=== PATIENT | female | born 1995 | race Caucasian/White ===

== ENCOUNTER → 2017-10-23 09:01 | Outpatient (REF) | payer BC, SELFPAY ==
[2017-10-23 14:00] LABS: HCG,Quantitative 5 mIU/mL
== END ==
LOC: LAB 09:01
PROVIDERS: Visit Provider Physician Assistant
DX: Z32.00 Encounter for pregnancy test, result unknown (principal)
CPT/HCPCS: 84702

== ENCOUNTER → 2017-11-26 09:50 | Outpatient (REF) | payer BC, SELFPAY ==
[2017-11-26 15:18] LABS: HCG,Quantitative 1201 mIU/mL
== END ==
LOC: LAB 09:50
PROVIDERS: Visit Provider Physician Assistant
DX: Z32.01 Encounter for pregnancy test, result positive (principal)
CPT/HCPCS: 84702

== ENCOUNTER → 2017-12-05 14:09 | Outpatient (CLI) | payer BC, SELFPAY ==
[2017-12-05 17:20] LABS: HCG,Quantitative 14697 mIU/mL
== END ==
PROVIDERS: PCP Physician Assistant; Visit Provider Emergency Medicine
DX: O20.9 Hemorrhage in early pregnancy, unspecified (principal)
CPT/HCPCS: 36415; 84702

== ENCOUNTER → 2017-12-07 16:09 | Outpatient (CLI) | payer BC, SELFPAY ==
[2017-12-07 16:41] LABS: Basophils % 0.2 % (0.1-2.0); Eosinophils % 0.4 % (0.1-12.0); Hematocrit 40.1 % (37.0-47.0); Hemoglobin 13.5 g/dL (12.2-16.2); Lymphocytes # 2.6 K/mm3 (0.7-4.5); Mean Corpuscular HGB Conc 33.8 g/dL (31.8-35.4); Mean Corpuscular Hemoglobin 30.3 pg (27.0-31.2); Mean Corpuscular Volume 89.7 fl (81-99); Mean Platelet Volume 8.4 fl (7.4-10.4); Monocytes # 0.3 K/mm3 (0.1-1.0); Monocytes % 3.1 % (1.7-9.3); Neutrophils # 6.5 K/mm3 (1.8-7.8); Neutrophils % 68.3 % (37.0-80.0); Platelet Count 189 K/mm3 (142-424); Red Blood Count 4.47 M/mm3 (4.20-5.40); Red Cell Distribution Width 13.5 % (11.5-17.5); White Blood Count 9.5 K/mm3 (4.8-10.8)
[2017-12-09 14:53] LABS: HIV Screen 4th Generation wRfx Non Reactive (Non Reactive); Hepatitis B Surface Antigen Negative (Negative); Hepatitis C Antibody <0.1 s/co ratio (0.0-0.9); Rapid Plasma Reagin Ab Titer Non Reactive (NonRea<1:1); Rubella Antibodies, IgG 0.93 index (Immune >0.99)
== END ==
PROVIDERS: Family Provider Physician Assistant; PCP Physician Assistant; Visit Provider Obstetrics & Gynecology
DX: Z34.90 Encounter for supervision of normal pregnancy, unspecified, unspecified trimester (principal)
CPT/HCPCS: 36415; 84702; 85025; 86592; 86703; 86762; 86850; 87340; 87380; 87536; G0432

== ENCOUNTER → 2017-12-10 15:03 | Outpatient (CLI) | payer BC, SELFPAY ==
--- NOTE | 2017-12-10 15:04 | US_ITS ---
US OB transvaginal HISTORY: ITS.REASON: US T/V- Checking for viable fetus ORDERING PHYSICIAN: Lena Eller MD PATIENT AGE: 22 years COMPARISON: None FINDINGS: An intrauterine gestational sac is present with a pole with a crown-rump length of 0.41cm correlating to gestational age of 6w1d. heart tones are present with an FHR of 141 bpm's. Yolk sac is noted. Adnexa: 1 cm right corpus luteum cyst. IMPRESSION: Live intrauterine gestation at 6 weeks 1 day as described above. Estimated due date by ultrasound is 08/04/2018
== END ==
PROVIDERS: Family Provider Physician Assistant; PCP Physician Assistant; Visit Provider Obstetrics & Gynecology
DX: O36.80X0 Pregnancy with inconclusive fetal viability, not applicable or unspecified (principal)
CPT/HCPCS: 76817

== ENCOUNTER → 2018-03-17 12:15 | Outpatient (CLI) | payer BC, MEDICAID, SELFPAY ==
--- NOTE | 2018-03-17 12:17 | US_ITS ---
US OB /maternal detail: INDICATION: ITS.REASON: US OB Complete ORDERING PHYSICIAN: Lena Eller MD PATIENT AGE: 22 years TECHNIQUE: ultrasound transabdominal scanning. COMPARISON: No previous relevant studies. FINDINGS: Single viable intrauterine gestation. Cephalic position. Placenta: Posterior High placenta grade 1. There is average amount fluid. The cervix appears satisfactory. Closed and measuring 4 cm in length. Complete survey performed and was unremarkable on the submitted images as in PACS. No discrete anomalies identified on survey imaging by technologist. Active fetus. Three-vessel cord with satisfactory umbilical cord insertion. 4- chamber heart noted. Survey of brain & ventricles unremarkable. Face and neck survey unremarkable. Diaphragm and chest views unremarkable. Abdomen: Both kidneys noted and unremarkable. Stomach noted and satisfactory. Spine: Survey of the spine satisfactory with no anomalies identified nor imaged. Both arms and legs noted. Amniotic Fluid: Adequate. Maternal adnexa: No significant findings. Measurements: Average ultrasound age 20w1d. Gestational Age 20w0d. Estimated due date by ultrasound age 0408/03/2018. Estimated weight 324 grams. BPD = 20w4d OFD = 20w4d HC = 19w6d AC = 20w0d FL = 20w0d Growth Percentile= 43% Heart Rate = 153 Cerebellum = 20w0d Humerus = 20w0d HC/AC is 1.17 (1.09-1.26). CI is 79% (70-86%). FL/BPD is 67%. FL/AC is 22%. IMPRESSION: There is a single live fetus present in cephalic presentation. Average ultrasound age is 20 weeks 1 day with an estimated due date by ultrasound 08/03/2018. All parameters correlate with no obvious anomalies. Please see above for detail
== END ==
PROVIDERS: PCP Physician Assistant; Visit Provider Obstetrics & Gynecology
DX: Z36.0 Encounter for antenatal screening for chromosomal anomalies (principal)
CPT/HCPCS: 76811

== ENCOUNTER → 2018-04-23 12:51 | Outpatient (CLI) | payer MEDICAID, SELFPAY ==
--- NOTE | 2018-04-23 12:53 | US_ITS ---
US OB follow up: Indication: Evaluate growth ITS.REASON: US OB- weight DEBORAH Check ORDERING PHYSICIAN: Lena Eller MD PATIENT AGE: 22 years FINDINGS: There is a single live fetus present which is in cephalic presentation. The placenta is posterior and fundal and grade 1. The following parameters are obtained: Average ultrasound age is 26w2d. Estimated due date by ultrasound is 07/28/2018. Estimated weight is 888 grams. This is 74 percentile BPD: 26w4d OFD: 26w3d HC: 26w1d AC: 26w2d FL: 25w5d heart rate: 147 bpm. HC/AC: 1.10 (1.04-1.22) Cephalic index: 77% (70-86%) FL/BPD: 72% (71-87%) FL/AC: 22% (20-24%) Amniotic fluid index: 20 cm No obvious anomalies evident. Placenta: Posterior High GR 1 Cervix: Appears closed and measures 4.5 cm IMPRESSION: Single live fetus with average ultrasound age of 26 weeks and 2 days with an estimated weight of 888 g which is 74 percentile. All parameters correlate. Please see above for detail
== END ==
PROVIDERS: PCP Physician Assistant; Visit Provider Obstetrics & Gynecology
DX: O28.9 Unspecified abnormal findings on antenatal screening of mother (principal); O36.62X0 Maternal care for excessive fetal growth, second trimester, not applicable or unspecified
CPT/HCPCS: 76816

== ENCOUNTER → 2018-05-17 08:04 | Outpatient (CLI) | payer MEDICAID, SELFPAY ==
[2018-05-17 08:29] LABS: Glucose,Fasting 84 mg/dL (60-105)
[2018-05-17 10:02] LABS: Glucose 1 Hour 139 mg/dL (74-106)
== END ==
PROVIDERS: Visit Provider Obstetrics & Gynecology
DX: Z34.90 Encounter for supervision of normal pregnancy, unspecified, unspecified trimester (principal)
CPT/HCPCS: 36415; 82951

== ENCOUNTER → 2018-07-01 17:33 | Outpatient (CLI) | payer SELFPAY | PROVIDERS: Visit Provider Obstetrics & Gynecology | DX: Z34.90 Encounter for supervision of normal pregnancy, unspecified, unspecified trimester (principal) | CPT/HCPCS: 86403 ==

== ENCOUNTER 2018-07-08 16:43 | Outpatient (CLI) | payer SELFPAY ==
[2018-07-08 17:21] VITALS: BP 128/81; PULSE 113; RESP 16; TEMP 36.9; O2SAT 98; BMI 40.4
[2018-07-08 17:27] LABS: Microscopic, Urine URINE MICROSCOPIC (MICROSCOPIC)
[2018-07-08 17:40] LABS: Appearance,Urine SL CLOUDY (Clear); Bilirubin,Urine Negative (Negative); Blood, Urine 1+ (Negative); Color,Urine YELLOW (Yellow); Glucose,Urine (UA) Negative (Negative); Ketones,Urine Negative (Negative); Leukocyte Esterase,Urine TRACE (Negative); Nitrate,Urine Negative (Negative); PH,Urine 6.5 (5.0-8.5); Protein,Urine Negative (Negative); Specific Gravity, Urine 1.015 (1.005-1.030); Urobilinogen,Urine 0.2 EU/dl (0.2)
[2018-07-08 18:10] LABS: Bacteria,Urine 1+ /lpf; RBC,Urine Occasional #/hpf (0-3)
== END 2018-07-08 18:45 | disposition home or self-care (01) ==
LOC: OBOUT 16:46 → OB 16:47
PROVIDERS: PCP Obstetrics & Gynecology; Visit Provider Obstetrics & Gynecology
DX: O60.03 Preterm labor without delivery, third trimester (principal); Z3A.36 36 weeks gestation of pregnancy
CPT/HCPCS: 59025; 81001

== ENCOUNTER → 2018-07-12 10:19 | Outpatient (CLI) | payer MEDICAID, SELFPAY ==
--- NOTE | 2018-07-12 10:20 | US_ITS ---
US OB follow up: INDICATION: Large for gestational age ITS.REASON: US OB- Growth DEBORAH- Large for Dates ORDERING PHYSICIAN: Lena Eller MD PATIENT AGE: 23 years TECHNIQUE: ultrasound transabdominal scanning. /mw COMPARISON: Previous ultrasound April 23, 2018 at which time average ultrasound age was 26 weeks 2 days. Also complete anatomic survey March 2018/cc FINDINGS: Single viable intrauterine gestation. Cephalic position.. Placenta : Placenta appears to be fundal and extending more anterior today..: (Previous April ultrasound showed a posterior -fundal placenta) This is a very Mature grade 2 appearing placenta, with fairly extensive basal plate calcifications. Also note calcifications extending along 2 or 3 visualized clefts extending upward from the basal plate.. Submitted Images do not demonstrate any prominent chorionic plate clefts . There are a few tiny fluid-filled hypoechoic areas within the placenta largest measuring up to 7 mm nonspecific at this point.. However I see no large hypoechoic areas of cleft/septations from the chorionic plate to support grade 3. Thus would characterize this is a mature grade 2,. The cervix difficult to visualize due to the low-lying head, but appears to measure approximately 2.8 cm length. Th Limited overview images of fetus performed at this follow-up visit.,. Images submitted images as in PACS reflect the mild polyhydramnios . No discrete associated anomalies noted with the real-time scanning today by technologist. Active fetus.Three-vessel cord with satisfactory umbilical cord insertion. Limited Survey low-lying head reveals unremarkable brain & ventricles. In posterior fossa unremarkable Today's a few limited views of abdomen reveal no prominent findings, but would noted slight hypoechoic structure along the flank which most likely reflect fluid-filled bowel loops.. Chest images grossly satisfactory.. Limited views of heart unremarkable.... Note it appears to be a male fetus ------ Amniotic Fluid: A slight Increased amount... Suggest Developing polyhydramnios DEBORAH = 21.55 with all pockets in all quadrants measuring measuring over 5.2 cm Measurements: Average ultrasound age 37 week 5 day. Gestational Age 36 week 5 day... Based on LMP 10/28/2017. Estimated due date by ultrasound age 407/28/2018 Estimated weight 3427 grams. +/- 500 g BPD = 9 cm = 36 week 4 day OFD = 11.82 cm HC = 33 cm = 37 week 4 day AC = 35.3 cm = 39 week 2 day FL = 7.25 cm = 37 week 1 Heart Rate = 138 bpm DEBORAH = 21.55 suggesting developing polyhydramnios HC/AC = 0.93.(1.09-1.26.) CI = 76%.(70-86%). FL/BPD is 81% (71-87%). FL/AC is 21% %. (22-24%) ==== IMPRESSION: 37 week 5 day average ultrasound age ... Cephalic position Very Mature grade 2 placenta --with extensive basal plate calcification now evident.-Significant placental maturation since April ultrasound. On today's limited images this appears to be a fundal placenta which wraps anterior,. (previous April study suggested more posterior placenta) DEBORAH 21.55 .. suggest developing Polyhydramnios No other discrete associated findings on today's very limited overview images of the fetus. I would note likely few fluid-filled bowel loops account for slight hypoechoic structures along flank on coronal views of the abdomen. Also note the HC/AC ratio & FL/AC ratio i very slightly low but this may reflect a generous ACmeasurement on today's scan
== END ==
PROVIDERS: PCP Physician Assistant; Visit Provider Obstetrics & Gynecology
DX: O36.60X0 Maternal care for excessive fetal growth, unspecified trimester, not applicable or unspecified (principal)
CPT/HCPCS: 76816

== ENCOUNTER 2018-07-14 09:15 | Outpatient (CLI) | payer MEDICAID, SELFPAY ==
[2018-07-14 09:34] VITALS: BMI 40.8
[2018-07-14 09:37] VITALS: BP 121/80; PULSE 112; RESP 18; TEMP 36.8; O2SAT 98; BMI 40.8
[2018-07-14 09:37] LABS: Microscopic, Urine URINE MICROSCOPIC (MICROSCOPIC)
[2018-07-14 09:40] LABS: Appearance,Urine SL CLOUDY (Clear); Bilirubin,Urine Negative (Negative); Blood, Urine Negative (Negative); Color,Urine YELLOW (Yellow); Glucose,Urine (UA) Negative (Negative); Ketones,Urine TRACE (Negative); Leukocyte Esterase,Urine 1+ (Negative); Nitrate,Urine Negative (Negative); Protein,Urine Negative (Negative); Specific Gravity, Urine 1.025 (1.005-1.030); Urobilinogen,Urine 0.2 EU/dl (0.2)
[2018-07-14 09:41] VITALS: BP 121/80; PULSE 112; RESP 18; TEMP 36.8; O2SAT 98
[2018-07-14 09:50] LABS: Bacteria,Urine 1+ /lpf; Mucus,Urine Trace /lpf
== END 2018-07-14 11:55 | disposition home or self-care (01) ==
LOC: OBOUT 09:18 → OB 09:19
PROVIDERS: PCP Physician Assistant; Visit Provider Obstetrics & Gynecology
DX: O47.03 False labor before 37 completed weeks of gestation, third trimester (principal); Z3A.37 37 weeks gestation of pregnancy
CPT/HCPCS: 59025; 81001; 87086; 96360

== ENCOUNTER 2018-07-15 01:49 | Inpatient (IN) ==
[2018-07-15 03:08] LABS: Basophils % 0.1 % (0.1-2.0); Eosinophils # 0.1 K/mm3 (0.0-0.4); Eosinophils % 1.3 % (0.1-12.0); Hematocrit 32.8 % (37.0-47.0); Hemoglobin 10.8 g/dL (12.2-16.2); Lymphocytes # 2.1 K/mm3 (0.7-4.5); Lymphocytes % 19.1 % (10-50); Mean Corpuscular HGB Conc 32.8 g/dL (31.8-35.4); Mean Corpuscular Volume 82.3 fl (81-99); Monocytes # 0.5 K/mm3 (0.1-1.0); Monocytes % 4.2 % (1.7-9.3); Neutrophils # 8.1 K/mm3 (1.8-7.8); Neutrophils % 75.3 % (37.0-80.0); Platelet Count 134 K/mm3 (142-424); Red Blood Count 3.98 M/mm3 (4.20-5.40); Red Cell Distribution Width 14.8 % (11.5-17.5); White Blood Count 10.8 K/mm3 (4.8-10.8)
--- NOTE | 2018-07-15 09:03 | Progress Note ---
Internal Medicine - PN: Subj *Date: 07/15/18 *Time: 09:00 Interval history: She is a 23-year-old 2 para 1 who is 37+ weeks gestational age. She is having contractions yesterday and was admitted overnight. She was 3 cm on arrival and has now continued to contract overnight and is 5 cm dilated. Exam Vital signs and Labs for Last 24 Hours: Temp Pulse Resp BP Pulse Ox 98.7 F 96 H 18 117/78 99 07/15/18 04:40 07/15/18 04:40 07/15/18 04:40 07/15/18 04:40 07/15/18 04:40 Laboratory Results - last 24 hr 07/15/18 02:57: WBC 10.8, RBC 3.98 L, Hgb 10.8 L, Hct 32.8 L, MCV 82.3, MCH 27.0, MCHC 32.8, RDW 14.8, Plt Count 134 L, MPV 12.0 H, Neut % (Auto) 75.3, Lymph % (Auto) 19.1, [place] % (Auto) 4.2, Eos % (Auto) 1.3, Baso % (Auto) 0.1, Neut # (Auto) 8.1 H, Lymph # (Auto) 2.1, [place] # (Auto) 0.5, Eos # (Auto) 0.1, Baso # (Auto) 0.0 07/15/18 02:57: Blood Type A Positive, Antibody Screen Negative I & O for Last 24 hours: Intake & Output 07/12/18 07/13/18 07/14/18 07/15/18 11:59 11:59 11:59 11:59 Weight 216 lb 4 oz - Constitutional no acute distress Assessment and Plan (1) Normal delivery Current visit: Yes Status: Acute Category: Medical Code(s): O80 - Encounter for full-term uncomplicated delivery - Assessment and plan all Dx Assessment and Plan for all problems:: She is 5 cm dilated, 90% effaced and station -1. I ruptured her membranes with clear fluid. She is having regular contractions. We will anticipate a vaginal delivery.
[2018-07-15 11:27] LABS: Microscopic, Urine URINE MICROSCOPIC (MICROSCOPIC)
[2018-07-15 11:30] LABS: Appearance,Urine CLOUDY (Clear); Bilirubin,Urine Negative (Negative); Blood, Urine 3+ (Negative); Color,Urine YELLOW (Yellow); Glucose,Urine (UA) Negative (Negative); Ketones,Urine 1+ (Negative); Leukocyte Esterase,Urine Negative (Negative); PH,Urine 7.5 (5.0-8.5); Protein,Urine 1+ (Negative); Specific Gravity, Urine 1.015 (1.005-1.030); Urobilinogen,Urine 0.2 EU/dl (0.2)
[2018-07-15 11:37] LABS: Bacteria,Urine Trace /lpf; RBC,Urine 20-50 #/hpf (0-3); WBC,Urine Occasional #/hpf (0-3)
--- NOTE | 2018-07-15 11:43 | Progress Note ---
Labor Note - Subjective: Date: 07/15/18 Time: 11:42 regular contraction - Objective: NST:: Reactive Contractions:: every 2-3 minutes Cervical Dilation:: 9-10 Effacement:: 100% Station: 0 - Fetus: Monitoring?: Yes monitoring type:: External - Assessment: Labor progressing?: Yes Cephalopelvic disproportion?: No Patient Problems: All Active Problems Normal delivery (Acute) Hypertension complicating (Acute) Large for dates (Acute) Obesity, Class II, BMI 35-39.9 (Acute) Rubella non-immune status, antepartum (Acute) with gestation of unknown duration (Acute) Vaginal bleeding affecting early (Acute) (Acute) First trimester bleeding (Acute) Positive urine test (Acute) BMI 38.0-38.9,adult (Chronic) - Plan: Anesthesia for epidural?: Yes Continue to labor down?: Yes Plan for ?: No Continue to monitor?: Yes Start pushing?: No Comment:: Her baby's head is still a little high. We will allow the baby had come down a little further yet before we start pushing.
--- NOTE | 2018-07-15 13:00 | Progress Note ---
[facility] Anesthesia Checklist - Patient Identification Patient Identification: Arm Band, Verbal (Name & ) - Structural Data Admitted From: Home Planned Operative Procedure/s: Labor epidural Consent for Planned Operative Procedure(s) Verified: Yes Verified Documents: Surgical Consent, History and Physical - Chart Verification Results Verified: CBC - Additional verifications Patient : Yes Anesthesia Reactions: No - Airway Assessment C-Spine Mobility Assessed: Yes TMJ Mobility Assessed: Yes Dentition: Good Dentition - Neurological Assessment Level of Consciousness: Awake Hx Seizures: No Numbness or tingling in extremities: No - Anesthesia Plan Anesthesia Risk discussed: Yes Anesthesia Plan: Verified ASA Class: II Anesthesia Type: Epidural [facility] History I have reviewed the patient's past medical history: Yes 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: Reports:: Gastroesophageal Reflux Disease(GERD) Denies:: Anxiety, Depression, Migraine, Seizures *Have you ever received a pneumonia vaccine?: No *Have you received a flu vaccine this season?: Yes Other Surgeries: Yes: No Previous Surgery. No: Amputation: No Fractures: No - *Social History Smoking Status: Never smoker Alcohol Intake: never Substance Use Type: denies use *Occupational Status:: employed - Psychiatric History Pschychiatric History:: Denies:: Anxiety, Depression Family Hx:: No significant family history Para: 1
--- NOTE | 2018-07-15 14:15 | Procedure Note ---
- Delivery Note Delivery Date:: 07/15/18 Delivery Time:: 13:49 Anesthesia Type: Epidural Was labor medically induced?: No Induction method: none delivered prior to 39 weeks?: Yes Justification for early elective delivery:: Active Labor Gender: Male at 1 minute: 8 at 5 minutes: 9 LAC or MLE?: LAC Delivery Procedure:: She is a 23-year-old 2 para 1 at 37 and 1 weeks gestational age. She came in in active labor and changed her cervix from 3-5 cm. She was having regular contractions. As result of that we elected to rupture membranes and allow her to deliver. Under labor epidural she progressed to full dilation and delivered spontaneously a liveborn male child at 1:49 PM in the afternoon of July 15, 2018. The baby weighed 8 pounds 5 ounces and was 19 and three-quarter inches long. He had Apgars of 8 at 1 minute and 9 at 5 minutes. On deliver the head the anterior shoulder then delivered followed by the rest the infant's body atraumatically. The oropharynx and nasopharynx were bulb suction. We allowed the baby's cord to continue to pulsate for approximately 1 minute. The cord was then doubly clamped and cut. The was then handed off to nurses who assigned Apgars of 8 at 1 minute and 9 at 5 minutes. We then obtained cord blood as well as cord pH. Using gentle traction on the cord and countertraction the fundus I was able to easily deliver the placenta intact. It had a normal three-vessel cord. She had a small first-degree vaginal laceration that was repaired with interrupted 3-0 Vicryl Rapide suture. She has a positive blood, she is rubella nonimmune and was group B stopcock is negative. She plans to breast-feed. Her chief operator lock tender is Dr. Vaughan. Estimated blood loss was approximately 300 cc. Laceration:: vaginal Placental Delivery Description: Spontaneous
[2018-07-15 20:22] VITALS: BP 122/76
[2018-07-16 05:36] LABS: Hematocrit 30.9 % (37.0-47.0); Hemoglobin 9.9 g/dL (12.2-16.2)
--- NOTE | 2018-07-16 09:26 | Progress Note ---
Internal Medicine - PN: Subj *Date: 07/16/18 *Time: 09:26 Interval history: She continues to do well. She is eating and drinking and ambulating. She is bottlefeeding. Exam Vital signs and Labs for Last 24 Hours: Temp Pulse Resp BP Pulse Ox 98.6 F 79 18 122/76 97 07/15/18 19:48 07/15/18 19:48 07/15/18 19:48 07/15/18 19:48 07/15/18 19:48 Laboratory Results - last 24 hr 07/15/18 10:15: Urine Color Yellow, Urine Appearance Cloudy, Urine pH 7.5, Ur Specific [place] 1.015, Urine Protein 1+, Urine Glucose (UA) Negative, Urine Ketones 1+, Urine Blood 3+, Urine Nitrate Negative, Urine Bilirubin Negative, Urine Urobilinogen 0.2, Ur Leukocyte Esterase Negative, Urine RBC 20-50, Urine WBC Occasional, Ur Squamous Epith Cells 3-5, Urine Bacteria Trace 07/15/18 14:11: Cord ABG pH 7.20 L* 07/16/18 05:16: Hgb 9.9 L, Hct 30.9 L I & O for Last 24 hours: Intake & Output 07/13/18 07/14/18 07/15/18 07/16/18 11:59 11:59 11:59 11:59 Weight 216 lb 4 oz - Constitutional no acute distress Assessment and Plan (1) Normal delivery Current visit: Yes Status: Acute Category: Medical Code(s): O80 - Encounter for full-term uncomplicated delivery - Assessment and plan all Dx Assessment and Plan for all problems:: She is doing very well this morning. We will plan to send her home tomorrow.
--- NOTE | 2018-07-17 10:26 | Discharge Summary ---
General - General Admission date:: 07/15/18 Discharge date: 07/17/18 HPI HPI: She is a 23-year-old 2 now para 2 who is 37 and 1 weeks gestational age. She came in in active labor. Hospital Course Hospital Course: She was having regular contractions and change her cervix overnight. She was 5 cm dilated by the morning of July 15, 2018. We ruptured her membranes and she progressed under labor epidural to full dilation. She delivered spontaneously a liveborn male child at 1:49 PM in the afternoon of July 15, 2018. The baby weighed 8 pounds 5 ounces and was 19 and three-quarter inches long. He had Apgars of 8 at 1 minute and 9 at 5 minutes. She has done well and has remained afebrile throughout her hospitalization. She is eating and drinking and ambulating. She is bottlefeeding. Her lochia is normal. She has a positive blood, she is rubella nonimmune and will receive MMR prior to discharge. She was group A streptococcus negative. She is discharged home to follow-up with Dr. Eller in approximately 2 weeks time. She will continue with her vitamins and iron. She was given the usual instructions with respect to limiting her activity, driving and sexual activity. Rhogam Administration: Not Indicated Objective Vital signs: Temp Pulse Resp BP Pulse Ox 98.6 F 79 18 122/76 97 07/15/18 19:48 07/15/18 19:48 07/15/18 19:48 07/15/18 19:48 07/15/18 19:48 no acute distress DS: Diagnosis - Discharge Diagnosis (1) Normal delivery Status: Acute Discharge Plan - Patient Discharge Instructions ACTIVITY: No heavy lifting DIET: continue same diet - Follow up Plan Disposition: Home, Self-[facility] Medications: Home Medications Medication Instructions Recorded Confirmed Type 1 tab PO DAILY 12/07/17 07/15/18 History vitamin,calcium,wzkumehb-mouv-yhhez acid tablet Prescriptions/Medication Reconciliation: Continue vitamin,calcium,hywoirus-scvj-rvwsm acid tablet 1 tab PO DAILY
== END 2018-07-17 11:40 | disposition home or self-care (01) | DRG 807 ==
LOC: OBOUT 01:49 → OB 01:49
PROVIDERS: ADMIT Nurse Practitioner Obstetrics & Gynecology; ATTEND Nurse Practitioner Obstetrics & Gynecology
CPT/HCPCS: J0595

== ENCOUNTER → 2018-09-03 13:50 | Outpatient (CLI) | payer MEDICAID, SELFPAY ==
[2018-09-08 06:06] LABS: Neisseria gonorrhoeae, NAA Negative (Negative)
== END ==
PROVIDERS: Visit Provider Obstetrics & Gynecology
DX: Z30.430 Encounter for insertion of intrauterine contraceptive device (principal); Z72.51 High risk heterosexual behavior
CPT/HCPCS: 87491; 87591

== ENCOUNTER → 2018-10-20 17:13 | Outpatient (CLI) | payer MEDICAID, SELFPAY | PROVIDERS: PCP Physician Assistant; Visit Provider Nurse Practitioner | DX: Z23 Encounter for immunization (principal) ==

== ENCOUNTER → 2019-01-11 15:37 | Outpatient (CLI) | payer OTHER, SELFPAY ==
[2019-01-14 07:43] LABS: Neisseria gonorrhoeae, NAA Positive (Negative)
== END ==
PROVIDERS: Visit Provider Physician Assistant
DX: N89.8 Other specified noninflammatory disorders of vagina (principal)
CPT/HCPCS: 87210; 87491; 87591

== ENCOUNTER → 2019-04-20 16:59 | Outpatient (CLI) | payer OTHER, SELFPAY ==
[2019-04-24 17:56] LABS: Neisseria gonorrhoeae, NAA Negative (Negative)
== END ==
PROVIDERS: Visit Provider Obstetrics & Gynecology
DX: Z72.51 High risk heterosexual behavior (principal)
CPT/HCPCS: 87491; 87591

== ENCOUNTER → 2019-05-25 18:42 | Outpatient (CLI) | payer OTHER, SELFPAY ==
[2019-05-25 20:21] LABS: Amphetamine/Metha Screen,Urine Negative ng/mL (<1000); Barbiturates Screen,Urine Negative ng/mL (<200); Benzodiazepines Screen,Urine Negative ng/mL (<200); Cannabinoid Screen,Urine Negative ng/mL (<50); Cocaine Screen,Urine Negative ng/mL (<300); Methadone Screen,Urine Negative ng/mL (<300); Opiate Screen,Urine Negative ng/mL (<300); Phencyclidine Screen,Urine Negative ng/mL (<25)
== END ==
PROVIDERS: Visit Provider Nurse Practitioner Family
DX: Z79.899 Other long term (current) drug therapy (principal)
CPT/HCPCS: 80305

== ENCOUNTER → 2019-08-03 15:45 | Outpatient (CLI) | payer OTHER, SELFPAY | PROVIDERS: Visit Provider Physician Assistant | DX: N89.8 Other specified noninflammatory disorders of vagina (principal) | CPT/HCPCS: 87210 ==

== ENCOUNTER → 2019-08-03 15:54 | Outpatient (CLI) | payer OTHER, SELFPAY ==
[2019-08-06 11:16] LABS: Neisseria gonorrhoeae, NAA Negative (Negative)
== END ==
PROVIDERS: Visit Provider Physician Assistant
DX: N89.8 Other specified noninflammatory disorders of vagina (principal)
CPT/HCPCS: 87210; 87491; 87591

== ENCOUNTER → 2019-09-21 14:34 | Outpatient (CLI) | payer OTHER, SELFPAY | PROVIDERS: Visit Provider Physician Assistant | DX: N89.8 Other specified noninflammatory disorders of vagina (principal) | CPT/HCPCS: 87210 ==

== ENCOUNTER → 2020-01-25 18:04 | Outpatient (CLI) | payer OTHER, SELFPAY ==
[2020-01-25 18:36] LABS: Basophils % 0.3 % (0.1-2.0); Eosinophils # 0.1 K/mm3 (0.0-0.4); Eosinophils % 1.3 % (0.1-12.0); Hematocrit 43.7 % (37.0-47.0); Hemoglobin 14.2 g/dL (12.2-16.2); Lymphocytes # 2.9 K/mm3 (0.7-4.5); Lymphocytes % 36.8 % (10-50); Mean Corpuscular HGB Conc 32.4 g/dL (31.8-35.4); Mean Corpuscular Hemoglobin 30.1 pg (27.0-31.2); Mean Corpuscular Volume 92.9 fl (81-99); Mean Platelet Volume 9.7 fl (7.4-10.4); Monocytes # 0.5 K/mm3 (0.1-1.0); Monocytes % 5.7 % (1.7-9.3); Neutrophils # 4.5 K/mm3 (1.8-7.8); Platelet Count 205 K/mm3 (142-424); Red Cell Distribution Width 12.4 % (11.5-17.5)
[2020-01-25 19:59] LABS: Chloride 102 mmol/L (98-107); Potassium 4.3 mmoL/L (3.5-5.1); Sodium 141 mmol/L (136-145)
[2020-01-25 20:02] LABS: Alanine Aminotransferase 51 U/L (12-78); Albumin Level 4.8 g/dl (3.5-5.0); Albumin/Globulin Ratio 1.5 (1.1-1.8); Alkaline Phosphatase 78 U/L (38-126); Anion Gap 13.3 mEq/L (5-15); Aspartate Amino Transferase 41 U/L (14-36); Bilirubin,Total 0.5 mg/dl (0.2-1.3); Blood Urea Nitrogen 12 mg/dl (7-17); Carbon Dioxide 30 mmol/L (22.0-30.0); Chol/HDL Ratio 3.4 (1-3.5); Cholesterol 233 mg/dl (140-200); Estimated Glomerular Filt Rate 103 ml/min (>60); GFR (African American) 124 ML/MIN (>60); Globulin 3.1 g/dL (1.3-3.2); Glucose 78 mg/dl (74-100); HDL Cholesterol 68 mg/dl (40-60); Total Protein,Serum 7.9 g/dl (6.3-8.2); Triglycerides 157 mg/dl (30-150); VLDL Cholesterol 31 mg/dL (0-40)
[2020-01-25 20:20] LABS: T4 (Thyroxine) 8.4 ug/dl (5.53-11.0)
[2020-01-25 20:25] LABS: HCG,Quantitative < 2 mIU/ml (0-5.42)
[2020-01-25 20:33] LABS: Thyroid Stimulating Hormone 1.01 uIU/mL (0.465-4.68)
[2020-01-26 00:39] LABS: Vitamin B12 478 pg/mL (239-931)
[2020-01-28 10:23] LABS: EBV Ab VCA, IgG >600.0 U/mL (0.0-17.9); EBV Ab VCA, IgM <36.0 U/mL (0.0-35.9); EBV Nuclear Antigen Ab, IgG >600.0 U/mL (0.0-17.9)
== END ==
PROVIDERS: Visit Provider Physician Assistant
DX: F32.9 Major depressive disorder, single episode, unspecified (principal); R40.0 Somnolence; R53.83 Other fatigue
CPT/HCPCS: 80053; 80061; 82607; 84436; 84443; 84702; 85025; 86664; 86665

== ENCOUNTER 2020-03-09 19:05 | Emergency (ER) | payer OTHER, SELFPAY ==
[2020-03-09 19:45] VITALS: BP 113/80; PULSE 113; RESP 14; TEMP 37.1; O2SAT 100; BMI 36.8
--- NOTE | 2020-03-09 19:52 | HMH.EDUTC ---
[facility] [place] Disposition Clinical Impression: Strep throat Disposition: Home, Self-Care Condition on Discharge: Good Instructions: Strep Throat Additional Instructions: Use the eye drops as directed. Follow up with your regular doctor. Follow up with an eye doctor. GO TO THE ER FOR ANY WORSENING SYMPTOMS Get a new tooth brush Prescriptions: Amoxicillin [Amoxicillin 500mg Tab] 500 mg PO TID 10 Days #30 tab Transmission Status: Received by [id number] Referrals: Heather Solo PA [Primary Care Provider] - Time of Disposition: 20:02 Medical Decision Making - Medical Records Medical records reviewed: No: I reviewed the patient's medical records. - Robert Inquiry Pt receiving controlled substance: No Vital Signs: 03/09/20 19:45 03/09/20 20:06 Temperature 98.7 F 98.7 F Temperature Source Oral Pulse Rate 113 H Pulse Rate [Right Brachial] 113 H Respiratory Rate 14 14 Blood Pressure 113/80 Blood Pressure [Right Arm] 113/80 Blood Pressure Mean [Right Arm] 91 Blood Pressure Source [Right Arm] Automatic Cuff Blood Pressure Position [Right Arm] Sitting 02 Sat by Pulse Oximetry 100 Oxygen Delivery Method Room Air - Lab Data Lab results reviewed: Yes: I reviewed the patient's lab results. Lab Results 03/09/20 19:50: Strep Scn Rapid Clinic Negative Orders (Tests/Meds): ED MEDICATIONS Discontinued Medications Generic Name Dose Route Start Last Admin Trade Name Chago PRN Reason Stop Dose Admin Amoxicillin 500 mg 03/09/20 20:02 03/09/20 20:09 Amoxicillin 500mg Capsule PO 03/09/20 20:03 500 mg ONCE ONE Administration Protocol ORDERS Category Date Time Status Covid-19 Nasal PCR ([facility]) Routine Lab 03/09/20 19:40 Received Strep Screen Confirmation Stat Micro 03/09/20 19:50 Received [facility] [place] HPI - General Stated complaint: Sore throat, body aches Time Seen by Provider: 03/09/20 20:00 - History of Present Illness Provider Complaint: She states that she has had sore throat and head ache since yesterday evening. - Related Data Home Medications Medication Instructions Recorded Confirmed Escitalopram Oxalate 10 mg PO DAILY 03/09/20 03/09/20 Previous Rx's Medication Instructions Recorded Amoxicillin [Amoxicillin 500mg Tab] 500 mg PO TID 10 Days #30 tab 03/09/20 Allergies Allergy/AdvReac Type Severity Reaction Status Date / Time No Known Allergies Allergy Verified 01/25/20 16:18 [facility] History - Hepatitis A Screen Attestation statement:: This patient has been screened for Hepatitis A risk factors. I have reviewed the patient's past medical history: Yes 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: Reports:: Dementia, Gastroesophageal Reflux Disease(GERD) Denies:: Anxiety, Depression, Diabetes Mellitus Type 1, Hyperlipidemia, Hypertension, Migraine, MRSA, Seizures Other Surgeries: Yes: No Previous Surgery, Appendectomy, Cholecystectomy. No: Amputation: No Fractures: No - Social History Smoking Status: Never smoker Alcohol Intake: never Substance Use Type: denies use Occupational Status: other Housing: apartment - Psychiatric History Pschychiatric History:: Denies:: Anxiety, Depression Family Hx:: No significant family history ROS Obtained: Yes All systems reviewed & no additional complaints - Constitutional Constitutional: Reports chills, Reports fever(s), Reports poor appetite, Reports malaise - Eyes Eyes: Denies eye discharge - ENT Ears, Nose, Mouth, and Throat: Reports as per HPI - Cardiovascular Cardiovascular: Denies chest pain - Respiratory Respiratory: No chest congestion, No cough Physical Exam - General General appearance: alert, in no apparent distress - Head Head exam: atraumatic, normocephalic, normal inspection - Eye Eye exam: Present: normal appearance, PERRL, EOMI - ENT ENT exam: Present: mucous membranes moist, normal external ear exam - Expanded ENT Exam TM/Canal exam: Bi
[2020-03-09 20:03] LABS: UTC Strep Screen (Rapid) Negative (Negative)
[2020-03-09 20:06] VITALS: BP 113/80; PULSE 113; RESP 14; TEMP 37.1; O2SAT 100
== END 2020-03-09 20:10 | disposition home or self-care (01) ==
PROVIDERS: Emergency Provider Nurse Practitioner Family; PCP Physician Assistant
DX: Z20.828 Contact with and (suspected) exposure to other viral communicable diseases (principal); J02.0 Streptococcal pharyngitis; K21.9 Gastro-esophageal reflux disease without esophagitis
CPT/HCPCS: 87880; 99202; U0003

== ENCOUNTER → 2020-09-11 17:46 | Outpatient (CLI) | payer OTHER, SELFPAY ==
[2020-09-11 18:01] VITALS: BMI 35.7
== END ==
PROVIDERS: PCP Physician Assistant; Visit Provider Nurse Practitioner Family
DX: Z02.1 Encounter for pre-employment examination (principal)
CPT/HCPCS: 86580

== ENCOUNTER → 2022-05-21 16:50 | Outpatient (CLI) | payer OTHER, SELFPAY ==
[2022-05-21 19:28] LABS: HCG,Quantitative 81 mIU/ml (0-5.42)
[2022-05-23 09:28] LABS: Progesterone 9.5 ng/mL (.)
== END ==
PROVIDERS: PCP Physician Assistant; Visit Provider Nurse Practitioner Obstetrics & Gynecology
DX: Z34.90 Encounter for supervision of normal pregnancy, unspecified, unspecified trimester (principal)
CPT/HCPCS: 36415; 84144; 84702

== ENCOUNTER 2022-05-25 20:46 | Emergency (ER) | payer OTHER, SELFPAY ==
[2022-05-25 20:48] VITALS: BP 150/90; PULSE 121; RESP 19; TEMP 36.6; O2SAT 99; BMI 42.1
--- NOTE | 2022-05-25 21:06 | US_ITS ---
PROCEDURE INFORMATION: Exam: US , Transvaginal and US Duplex Artery or Vein, Ovaries, Limited Exam date and time: 05/25/2022 9:27 PM Age: 26 years old Clinical indication: complicated by abdominal or pelvic pain; Right lower quadrant; First trimester (<14 weeks 0 days); Gestational age or lmp: 4w3d; ; Patient HX: Bhcgs [id number]--; Additional info: Back and R abd pain, 4wk TECHNIQUE: Imaging protocol: Real-time transvaginal obstetrical ultrasound of the maternal pelvis and a first trimester with image documentation. Transvaginal imaging was used for better evaluation of the fetus, adnexa, and/or cervix. Real-time duplex ultrasound scan of the arterial or venous flow of the ovaries with B-mode, color Doppler flow and spectral waveform analysis, Limited Duplex. Duplex exam was performed to evaluate for torsion and other vascular conditions. COMPARISON: [facility] US OB follow up 07/12/2018 10:31 AM FINDINGS: GESTATION: Gestation: No intrauterine gestational sac. heart rate: N/A. MATERNAL: Uterus: Up to 1.9 cm in thickness, heterogeneous with microcystic changes without vascularity. Right ovary: No mass. Normal flow. No adnexal mass. Left ovary: No mass. Normal flow. No adnexal mass. Intraperitoneal space: No significant free fluid. IMPRESSION: 1. No intrauterine gestation. DDX: Early IUP, missed , ectopic . 2. Thickened, heterogeneous endometrium, indeterminate. Retained products of conception or early molar not excluded. Clinical correlation and follow up are recommended.
[2022-05-25 21:12] LABS: Microscopic, Urine URINE MICROSCOPIC (MICROSCOPIC)
[2022-05-25 21:15] LABS: Basophils # 0.1 K/mm3 (0-0.2); Eosinophils # 0.1 K/mm3 (0.0-0.4); Eosinophils % 1.5 % (0.1-12.0); Hematocrit 45.6 % (37.0-47.0); Hemoglobin 14.9 g/dL (12.2-16.2); Lymphocytes # 2.5 K/mm3 (0.7-4.5); Lymphocytes % 29.1 % (10-50); Mean Corpuscular HGB Conc 32.6 g/dL (31.8-35.4); Mean Corpuscular Hemoglobin 29.8 pg (27.0-31.2); Mean Corpuscular Volume 91.2 fl (81-99); Mean Platelet Volume 9.3 fl (7.4-10.4); Monocytes # 0.4 K/mm3 (0.1-1.0); Monocytes % 4.6 % (1.7-9.3); Neutrophils # 5.6 K/mm3 (1.8-7.8); Neutrophils % 63.8 % (37.0-80.0); Platelet Count 210 K/mm3 (142-424); Red Cell Distribution Width 13.5 % (11.5-17.5); White Blood Count 8.7 K/mm3 (4.8-10.8)
[2022-05-25 21:15] LABS: Appearance,Urine CLEAR (Clear); Bilirubin,Urine Negative (Negative); Blood, Urine Negative (Negative); Color,Urine YELLOW (Yellow); Glucose,Urine (UA) Negative (Negative); Ketones,Urine Negative (Negative); Leukocyte Esterase,Urine Negative (Negative); Nitrate,Urine Negative (Negative); Protein,Urine Negative (Negative); Specific Gravity, Urine 1.015 (1.005-1.030)
[2022-05-25 21:18] LABS: Urine Pregnancy, HCG Qual. Positive (Negative)
[2022-05-25 21:20] LABS: Alanine Aminotransferase 31 U/L (12-78); Albumin Level 4.6 g/dl (3.5-5.0); Albumin/Globulin Ratio 1.3 (1.1-1.8); Alkaline Phosphatase 84 U/L (38-126); Anion Gap 9.5 mEq/L (5-15); Aspartate Amino Transferase 27 U/L (14-36); Bilirubin,Total 0.6 mg/dl (0.2-1.3); Blood Urea Nitrogen 7 mg/dl (7-17); Calcium 8.9 mg/dl (8.4-10.2); Carbon Dioxide 29 mmol/L (22.0-30.0); Chloride 104 mmol/L (98-107); Creatinine Clearance Estimated 80 mL/min (50-200); Estimated Glomerular Filt Rate 87 ml/min (>60); GFR (African American) 105 ML/MIN (>60); Globulin 3.6 g/dL (1.3-3.2); Glucose 97 mg/dl (74-100); Potassium 3.5 mmoL/L (3.5-5.1); Sodium 139 mmol/L (136-145); Total Protein,Serum 8.2 g/dl (6.3-8.2)
[2022-05-25 21:28] LABS: Bacteria,Urine Trace /lpf
--- NOTE | 2022-05-25 21:34 | PC.NURSE ---
called lab to check status of HCG Quat, states 4 min if no diluation needed and 25 if do need to dilute
[2022-05-25 21:37] LABS: HCG,Quantitative 565 mIU/ml (0-5.42)
[2022-05-25 22:02] VITALS: BP 105/67; PULSE 112; O2SAT 97
--- NOTE | 2022-05-25 22:18 | PC.NURSE ---
Dr. Solorio s/w SOMAD
[2022-05-25 22:30] VITALS: BP 111/76; PULSE 117; O2SAT 96
--- NOTE | 2022-05-25 22:48 | PC.NURSE ---
Pt provided with warm blanket
--- NOTE | 2022-05-25 23:23 | HMH.EDGENADL ---
Discharge Plan Disposition Patient Disposition: Home, Self-Care Chief Complaint: PAIN Prescriptions Prescriptions: No Action Flintstones Gummies Tablet,Chewable 1 tab PO DAILY Referrals Follow up/Referrals: Heather Solo PA [Primary Care Provider] - See instructions Clinical Impressions Clinical Impression: Instructions Patient Instructions: DI for -- Discomforts and Remedies Discharge ED Provider: Osmin (ED)Edward General Adult HPI General Chief complaint: PAIN Stated complaint: PROX 4 WK pREG [id number] PAIN Time Seen by Provider: 05/25/22 23:23 Mode of Arrival: Family Vehicle Source of Information: Patient and Medical Record Limitations: No Limitations Description of Symptoms (Recalled from ER Triage Doc. by RN): Pt c/o low back and r flank pain that began today. She denies any n/v, chills, or fever. Denies any vaginal bleeding. States she sees Dr. Bonilla for OBGYN and had labs on 05/21- HCG quant was 81. LMP was 04/24/22. Denies any gross hematuria. She does report diarrhea that began today as well. No injury or trauma reported. History of Present Illness HPI narrative: has early preg w/o bleeding and has element of back pain Onset (ago): hour(s) Location: back Severity: moderate Associated symptoms: denies other symptoms Related Data Home Medications Medication Instructions Recorded Confirmed pediatric multivitamin no.49 1 tab PO DAILY pre-kerry 05/25/22 05/25/22 (Flintstones Gummies chewable tablet) Allergies Allergy/AdvReac Type Severity Reaction Status Date / Time No Known Allergies Allergy Verified 05/19/22 08:58 [facility] Disclaimer: The information contained in this section may have been updated after the patient was seen, as this information can be updated by other users. 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 Abnormal weight Acne Anxiety BMI 34.0-34.9,adult BMI 37.0-37.9, adult BMI 38.0-38.9,adult Depression Morbid obesity with BMI of 40.0-44.9, adult Obesity, Class II, BMI 35-39.9 Positive urine test Surgical History History of appendectomy History of cholecystectomy Social History Smoking Status: Current every day smoker alcohol intake: never substance use type: denies use current occupational status: other Travel in the last 8 weeks: None housing: apartment ROS Obtained: Yes All systems reviewed & no additional complaints except as documented Physical Exam General General appearance: alert Head Head exam: atraumatic Eye Eye exam: Present PERRL and EOMI ENT ENT exam: Present mucous membranes moist Neck Neck exam: Present trachea midline Respiratory Respiratory exam: Absent respiratory distress Cardiovascular Cardiovascular exam: Present regular rate Abdominal Exam Abdominal exam: Present soft; Absent tenderness Extremities Exam Extremities exam: Present full ROM Back Exam Back exam: Absent CVA tenderness (R) Neurological Exam Neurological exam: Present alert, oriented X3 and CN II-XII intact; Absent motor sensory deficit Psychiatric Psychiatric exam: Present normal affect Skin Skin exam: Absent rash Medical Decision Making Medical Records Medical records reviewed: Yes I reviewed the patient's medical records. Robert Inquiry Pt receiving controlled substance: No Vital Signs: 05/25/22 20:48 05/25/22 22:02 05/25/22 22:30 Temperature 97.9 F Temperature Source Oral Pulse Rate 112 H 117 H Pulse Rate [Right] 121 H Respiratory Rate 19 Blood Pressure 105/67 L 111/76 Blood Pressure [Right Arm] 150/90 H Blood Pressure Mean [Right Arm] 110 Blood Pressure Source [Right Arm] Automatic Cuff 02 Sat by Pulse Oximetry 99 97 96 Oxygen Delivery Method Room Air Room Air Room Air Lab Data Lab results reviewed: Yes I reviewed the
[2022-05-25 23:27] VITALS: BP 110/75; PULSE 110; RESP 18; TEMP 36.6; O2SAT 99
== END 2022-05-25 23:39 | disposition home or self-care (01) ==
PROVIDERS: Emergency Provider Emergency Medicine; PCP Physician Assistant
DX: O26.891 Other specified pregnancy related conditions, first trimester (principal); M54.50 Low back pain, unspecified; R10.9 Unspecified abdominal pain; O99.331 Smoking (tobacco) complicating pregnancy, first trimester; F17.210 Nicotine dependence, cigarettes, uncomplicated; Z90.49 Acquired absence of other specified parts of digestive tract; Z3A.01 Less than 8 weeks gestation of pregnancy
CPT/HCPCS: 76817; 80053; 81001; 81025; 84702; 85025; 96360; 99285

== ENCOUNTER → 2022-05-28 11:46 | Outpatient (CLI) | payer OTHER, SELFPAY ==
[2022-05-28 14:17] LABS: HCG,Quantitative 1642 mIU/ml (0-5.42)
== END ==
LOC: LAB 11:46
PROVIDERS: PCP Physician Assistant; Visit Provider Obstetrics & Gynecology
DX: N92.6 Irregular menstruation, unspecified (principal); Z32.00 Encounter for pregnancy test, result unknown
CPT/HCPCS: 36415; 84702

== ENCOUNTER → 2022-05-29 17:08 | Outpatient (CLI) | payer OTHER, SELFPAY | PROVIDERS: Visit Provider Obstetrics & Gynecology | DX: Z3A.01 Less than 8 weeks gestation of pregnancy; O99.810 Abnormal glucose complicating pregnancy | CPT/HCPCS: 87086 ==

== ENCOUNTER → 2022-05-30 12:30 | Outpatient (CLI) | payer OTHER, SELFPAY ==
[2022-05-30 13:18] LABS: Basophils # 0.1 K/mm3 (0-0.2); Basophils % 0.6 % (0.1-2.0); Eosinophils # 0.2 K/mm3 (0.0-0.4); Eosinophils % 1.3 % (0.1-12.0); Hematocrit 41.3 % (37.0-47.0); Hemoglobin 13.7 g/dL (12.2-16.2); Lymphocytes # 3.9 K/mm3 (0.7-4.5); Lymphocytes % 35.6 % (10-50); Mean Corpuscular HGB Conc 33.2 g/dL (31.8-35.4); Mean Corpuscular Hemoglobin 30.1 pg (27.0-31.2); Mean Corpuscular Volume 90.9 fl (81-99); Mean Platelet Volume 9.1 fl (7.4-10.4); Monocytes # 0.5 K/mm3 (0.1-1.0); Monocytes % 4.4 % (1.7-9.3); Neutrophils # 6.3 K/mm3 (1.8-7.8); Platelet Count 239 K/mm3 (142-424); Red Blood Count 4.55 M/mm3 (4.20-5.40); Red Cell Distribution Width 13.5 % (11.5-17.5); White Blood Count 10.9 K/mm3 (4.8-10.8)
[2022-05-30 16:58] LABS: HCG,Quantitative 3587 mIU/ml (0-5.42)
[2022-05-31 07:58] LABS: Rubella Antibodies, IgG 1.77 index (Immune >0.99)
[2022-05-31 13:59] LABS: Rapid Plasma Reagin Ab Titer Non Reactive (NonRea<1:1)
[2022-06-01 16:50] LABS: HIV Screen 4th Generation wRfx NON REACTIVE; Hepatitis B Surface Antigen NEGATIVE; Hepatitis C Antibody NON REACTIVE
== END ==
PROVIDERS: PCP Physician Assistant; Visit Provider Obstetrics & Gynecology
DX: Z34.90 Encounter for supervision of normal pregnancy, unspecified, unspecified trimester (principal)
CPT/HCPCS: 36415; 84702; 85025; 86593; 86703; 86762; 86850; 87340; 87380; G0432

== ENCOUNTER → 2022-06-04 08:54 | Outpatient (CLI) | payer OTHER, SELFPAY ==
[2022-06-04 09:53] LABS: Basophils # 0.1 K/mm3 (0-0.2); Eosinophils # 0.2 K/mm3 (0.0-0.4); Lymphocytes # 2.2 K/mm3 (0.7-4.5); Lymphocytes % 26.3 % (10-50); Mean Corpuscular HGB Conc 32.6 g/dL (31.8-35.4); Mean Corpuscular Hemoglobin 30.3 pg (27.0-31.2); Mean Corpuscular Volume 93.1 fl (81-99); Mean Platelet Volume 9.2 fl (7.4-10.4); Monocytes # 0.3 K/mm3 (0.1-1.0); Monocytes % 3.8 % (1.7-9.3); Neutrophils # 5.4 K/mm3 (1.8-7.8); Platelet Count 205 K/mm3 (142-424); Red Blood Count 4.62 M/mm3 (4.20-5.40); White Blood Count 8.2 K/mm3 (4.8-10.8)
[2022-06-04 10:57] LABS: HCG,Quantitative 12930 mIU/ml (0-5.42)
[2022-06-05 12:37] LABS: HIV Screen 4th Generation wRfx Non Reactive (Non Reactive); Rapid Plasma Reagin Ab Titer Non Reactive (NonRea<1:1); Rubella Antibodies, IgG 1.77 index (Immune >0.99)
[2022-06-05 23:12] LABS: Hepatitis B Surface Antigen NEGATIVE; Hepatitis C Antibody NON REACTIVE
== END ==
PROVIDERS: PCP Physician Assistant; Visit Provider Nurse Practitioner Obstetrics & Gynecology
DX: Z34.90 Encounter for supervision of normal pregnancy, unspecified, unspecified trimester (principal)
CPT/HCPCS: 36415; 84702; 85025; 86593; 86703; 86762; 86850; 87340; 87380; G0432

== ENCOUNTER → 2022-06-11 10:39 | Outpatient (CLI) | payer OTHER, SELFPAY | PROVIDERS: Visit Provider Nurse Practitioner Obstetrics & Gynecology | DX: Z34.90 Encounter for supervision of normal pregnancy, unspecified, unspecified trimester (principal); Z3A.01 Less than 8 weeks gestation of pregnancy | CPT/HCPCS: 87086 ==

== ENCOUNTER → 2022-06-11 16:37 | Outpatient (CLI) | payer OTHER, SELFPAY | PROVIDERS: Visit Provider Nurse Practitioner Obstetrics & Gynecology | DX: Z34.90 Encounter for supervision of normal pregnancy, unspecified, unspecified trimester (principal) ==

== ENCOUNTER → 2022-07-01 12:46 | Outpatient (CLI) | payer OTHER, SELFPAY ==
--- NOTE | 2022-07-01 12:50 | US_ITS ---
FINAL REPORT CLINICAL HISTORY: for dates FINDINGS: Sonographic images of the pelvis were obtained. A single, living intrauterine is noted. A yolk sac is present and measures 0.29 cm. [place] to rump length measures 28.6 mm which corresponds to 9 weeks 5 days gestation. Heartbeat is identified and measures 170 beats per minute. The right ovary is within normal limits. The left ovary is within normal limits. IMPRESSION: Single, living, intrauterine gestation with 9 weeks 5 days gestational age. Reviewed, Interpreted and Dictated by Gilberto Sheldon MD Transcribed by Alana Mayberry Authenticated and [facility]
== END ==
LOC: RAD 12:47
PROVIDERS: PCP Physician Assistant; Visit Provider Obstetrics & Gynecology
DX: Z34.90 Encounter for supervision of normal pregnancy, unspecified, unspecified trimester (principal)
CPT/HCPCS: 76801

== ENCOUNTER → 2022-07-09 14:17 | Outpatient (CLI) | payer OTHER, SELFPAY ==
--- NOTE | 2022-07-09 14:23 | ECG_ITS ---
APPROVED REPORT Exam: Resting ECG HR:78 bpm ECG Measurements Heart Rate 78 AXES RI 125 P 6 QRSd 91 QRS 67 QT 351 T 10 QTc 384 Conclusion SINUS RHYTHM WITH MARKED SINUS ARRHYTHMIA BORDERLINE ECG UNCONFIRMED REPORT Electronically signed by : Jeovany Da Silva MD 07/09/2022 23:38:24
== END ==
LOC: RT 14:18
PROVIDERS: PCP Physician Assistant; Visit Provider Nurse Practitioner Obstetrics & Gynecology
DX: R07.89 Other chest pain (principal); Z3A.10 10 weeks gestation of pregnancy
CPT/HCPCS: 93005

== ENCOUNTER → 2022-07-30 11:29 | Outpatient (CLI) | payer OTHER, SELFPAY | LOC: RT 11:29 | PROVIDERS: PCP Physician Assistant; Visit Provider Physician Assistant | DX: R07.89 Other chest pain (principal); F41.9 Anxiety disorder, unspecified; K21.9 Gastro-esophageal reflux disease without esophagitis; Z3A.10 10 weeks gestation of pregnancy; E66.01 Morbid (severe) obesity due to excess calories; Z68.41 Body mass index [BMI] 40.0-44.9, adult | CPT/HCPCS: 93306 ==

== ENCOUNTER 2022-08-10 10:14 | Emergency (ER) | payer OTHER, SELFPAY ==
[2022-08-10] VITALS (7 sets, daily range): BP systolic 100–129; BP diastolic 53–68; PULSE 118–142; RESP 16–20; TEMP 36.7–36.8; O2SAT 96–97; BMI 41.3
--- NOTE | 2022-08-10 10:25 | US_ITS ---
PROCEDURE INFORMATION: Exam: US After First Trimester, Transabdominal Exam date and time: 08/10/2022 11:08 AM Age: 27 years old Clinical indication: Lmp or gestational age (in weeks): 15+3; Other: Bleeding; TECHNIQUE: Imaging protocol: Real-time transabdominal obstetrical ultrasound of the maternal pelvis and a second or third trimester with image documentation. COMPARISON: US OB <= 14 WEEKS FETUS 07/01/2022 1:21 PM FINDINGS: Gestation: Single live intrauterine gestation. heart rate: heart tones 153 bpm. presentation: Variable. Placenta: Placenta located anteriorly. Limited evaluation for previa. Amniotic fluid: Amniotic fluid is normal for gestational age. ANATOMY: Not evaluated on current examination. MATERNAL: Uterus: Unremarkable. Cervix: Heterogeneous soft tissue density adjacent to the internal cervical os measures 3.6 x 1.9 x 3.5 cm. Hypoechoic focus may represent subchorionic hemorrhage at this location. There is suboptimal visualization of the cervix. Short-term follow-up is necessary. Cervical length measures 6.10 cm, appears closed. Right ovary/adnexa: Right ovary not visualized. Left ovary/adnexa: Left ovary unremarkable, demonstrating normal blood flow. Intraperitoneal space: No intraperitoneal free fluid. IMPRESSION: 1. Heterogeneous soft tissue density adjacent to the internal cervical os measures 3.6 x 1.9 x 3.5 cm. Hypoechoic focus may represent subchorionic hemorrhage at this location. There is suboptimal visualization of the cervix. Short-term follow-up is necessary. 2. Cervical length measures 6.10 cm, appears closed. 3. Single live intrauterine gestation.
--- NOTE | 2022-08-10 10:28 | HMH.EDGENADL ---
Discharge Plan Disposition Patient Disposition: Home, Self-Care Condition: Good Prescriptions Prescriptions: No Action famotidine [Pepcid] 20 mg tablet 20 mg PO DAILY Qty: 30 11RF M- Plus 27 mg iron- 1 mg tablet 1 tab PO DAILY Label Comments: TAKE 1 TABLET BY MOUTH ONCE DAILY metronidazole 0.75 % (37.5mg/5 gram) gel 1 appful vaginal HS 5 Days Qty: 70 0RF progesterone micronized [Prometrium] 200 mg capsule 200 mg vaginal HS 30 Days Qty: 30 2RF Flintstones Gummies Tablet,Chewable 1 tab PO DAILY Referrals Follow up/Referrals: Humble Bonilla MD [Staff Physician] - See instructions Heather Solo PA [Primary Care Provider] - See instructions Activity Restrictions/Add. Instructions Additional Instructions/Restrictions: Pelvic rest, avoid intercourse and heavy lifting or straining. You may have some ongoing mild bleeding return if bleeding becomes severe. Clinical Impressions Clinical Impression: Vaginal bleeding, Threatened miscarriage Stand Alone Forms Stand Alone Forms: Work/School Release Discharge ED Provider: Maikel Cullen General Adult HPI General Chief complaint: Vaginal Bleeding Stated complaint: 15 Weeks , bleeding Time Seen by Provider: 08/10/22 10:20 History of Present Illness HPI narrative: Patient presents complaining of vaginal bleeding that began earlier this morning. She states is similar in quality to her normal. She denies associated abdominal pain. She is approximate 15 weeks and is a G3, P2 Ab0 patient. Related Data Home Medications Medication Instructions Recorded Confirmed pediatric multivitamin no.49 1 tab PO DAILY pre- 05/25/22 07/31/22 (Flintstones Gummies chewable tablet) vitamin with calcium 1 tab PO DAILY 07/15/22 07/31/22 no.72-iron 27 mg-folic acid 1 mg tablet (M-Stephanie Plus) Previous Rx's Medication Instructions Recorded progesterone micronized 200 mg 200 mg vaginal HS 30 days #30 caps 05/26/22 capsule (Prometrium) metronidazole 0.75 % (37.5 mg/5 1 appful vaginal HS 5 days #70 06/02/22 gram) vaginal gel grams famotidine 20 mg tablet (Pepcid) 20 mg PO DAILY #30 tabs 07/09/22 Allergies Allergy/AdvReac Type Severity Reaction Status Date / Time No Known Allergies Allergy Verified 07/31/22 11:32 PFSH PFSH Disclaimer: The information contained in this section may have been updated after the patient was seen, as this information can be updated by other users. 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 Abnormal weight Acne Anxiety Depression Maternal obesity affecting , antepartum Morbid obesity with BMI of 40.0-44.9, adult Positive urine test Surgical History History of appendectomy History of cholecystectomy Social History Smoking Status: Never smoker alcohol intake: never substance use type: denies use current occupational status: other Travel in the last 8 weeks: None housing: apartment ROS Obtained: Yes All systems reviewed & no additional complaints except as documented Physical Exam General General appearance: alert and in no apparent distress Head Head exam: atraumatic, normocephalic and normal inspection Eye Eye exam: Present normal appearance, PERRL and EOMI ENT ENT exam: Present normal exam, normal oropharynx, mucous membranes moist, TM's normal bilaterally and normal external ear exam Neck Neck exam: Present normal inspection, full ROM and trachea midline; Absent meningismus or lymphadenopathy Chest Chest inspection: Present normal inspection and symmetric chest wall rise; Absent tenderness Respiratory Respiratory exam: Present normal lung sounds bilaterally; Absent respiratory distress Cardiovascular Cardiovascular exam: Present regular rate and normal rhythm; Absent JVD Abdominal Exam
[2022-08-10 10:44] LABS: Microscopic, Urine URINE MICROSCOPIC (MICROSCOPIC)
--- NOTE | 2022-08-10 10:44 | PC.NURSE ---
Called for ultra sound
[2022-08-10 11:06] LABS: Chloride 101 mmol/L (98-107); Potassium 3.4 mmoL/L (3.5-5.1); Sodium 134 mmol/L (136-145)
[2022-08-10 11:06] LABS: Appearance,Urine CLEAR (Clear); Blood, Urine 3+ (Negative); Color,Urine YELLOW (Yellow); Glucose,Urine (UA) Negative (Negative); Ketones,Urine 1+ (Negative); Leukocyte Esterase,Urine Negative (Negative); Nitrate,Urine Negative (Negative); PH,Urine 6.5 (5.0-8.5); Protein,Urine 1+ (Negative); Specific Gravity, Urine 1.025 (1.005-1.030); Urobilinogen,Urine 0.2 EU/dl (0.2)
[2022-08-10 11:08] LABS: Alanine Aminotransferase 25 U/L (12-78); Aspartate Amino Transferase 26 U/L (14-36); Blood Urea Nitrogen 7 mg/dl (7-17); Creatinine Clearance Estimated 106 mL/min (50-200); Estimated Glomerular Filt Rate 120 ml/min (>60); GFR (African American) 145 ML/MIN (>60)
[2022-08-10 11:09] LABS: Albumin Level 3.8 g/dl (3.5-5.0); Albumin/Globulin Ratio 1.2 (1.1-1.8); Alkaline Phosphatase 78 U/L (38-126); Anion Gap 11.4 mEq/L (5-15); Bilirubin,Total 0.6 mg/dl (0.2-1.3); Calcium 9.4 mg/dl (8.4-10.2); Carbon Dioxide 25 mmol/L (22.0-30.0); Globulin 3.3 g/dL (1.3-3.2); Glucose 99 mg/dl (74-100); Total Protein,Serum 7.1 g/dl (6.3-8.2)
[2022-08-10 11:10] LABS: Basophils % 0.1 % (0.1-2.0); Eosinophils # 0.2 K/mm3 (0.0-0.4); Eosinophils % 1.6 % (0.1-12.0); Hematocrit 40.1 % (37.0-47.0); Hemoglobin 13.3 g/dL (12.2-16.2); Lymphocytes # 1.9 K/mm3 (0.7-4.5); Lymphocytes % 18.7 % (10-50); Mean Corpuscular HGB Conc 33.2 g/dL (31.8-35.4); Mean Corpuscular Hemoglobin 29.5 pg (27.0-31.2); Mean Corpuscular Volume 88.9 fl (81-99); Mean Platelet Volume 10.2 fl (7.4-10.4); Monocytes # 0.4 K/mm3 (0.1-1.0); Monocytes % 3.8 % (1.7-9.3); Neutrophils # 7.8 K/mm3 (1.8-7.8); Neutrophils % 75.7 % (37.0-80.0); Platelet Count 155 K/mm3 (142-424); Red Blood Count 4.51 M/mm3 (4.20-5.40); Red Cell Distribution Width 13.4 % (11.5-17.5); White Blood Count 10.3 K/mm3 (4.8-10.8)
[2022-08-10 11:13] LABS: Bilirubin,Urine Negative (Negative)
[2022-08-10 11:14] LABS: Squamous Epithelial Cell,Urine Occasional #/hpf (0-5); WBC,Urine Occasional #/hpf (0-3)
--- NOTE | 2022-08-10 11:23 | PC.NURSE ---
pt to u/s via wheelchair
--- NOTE | 2022-08-10 11:29 | PC.NURSE ---
pt returned from VB Rags/s. VB Rags/Gluster at the bedside giving prelim report to .
--- NOTE | 2022-08-10 12:17 | PC.NURSE ---
called radiology to check the status of u/s reading
--- NOTE | 2022-08-10 12:40 | PC.NURSE ---
speaking to Dr. Eller OB
--- NOTE | 2022-08-10 12:41 | PC.NURSE ---
rounded on pt no complaints, unhooked pt from data machine so she could use the restroom, lang at bs
== END 2022-08-10 12:58 | disposition home or self-care (01) ==
PROVIDERS: Emergency Provider Emergency Medicine; PCP Physician Assistant
DX: O20.0 Threatened abortion (principal); Z3A.15 15 weeks gestation of pregnancy
CPT/HCPCS: 76805; 80053; 81001; 84702; 85025; 86900; 86901; 99284; 99285

== ENCOUNTER 2022-08-11 13:14 | Emergency (ER) | payer OTHER, SELFPAY ==
[2022-08-11 13:15] VITALS: BP 121/86; PULSE 104; RESP 18; TEMP 36.9; O2SAT 99; BMI 41.3
--- NOTE | 2022-08-11 13:26 | HMH.EDGENADL ---
Discharge Plan Disposition Patient Disposition: Home, Self-Care Condition: Good Prescriptions Prescriptions: No Action M- Plus 27 mg iron- 1 mg tablet 1 tab PO DAILY Label Comments: TAKE 1 TABLET BY MOUTH ONCE DAILY Flintstones Gummies Tablet,Chewable 1 tab PO DAILY metronidazole 0.75 % (37.5mg/5 gram) gel 1 appful vaginal HS famotidine [Pepcid] 20 mg tablet 20 mg PO DAILY progesterone micronized [Prometrium] 200 mg capsule 200 mg vaginal HS Referrals Follow up/Referrals: Heather Solo PA [Primary Care Provider] - See instructions Activity Restrictions/Add. Instructions Additional Instructions/Restrictions: Pelvic rest. 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 Clinical Impressions Clinical Impression: Threatened miscarriage, Vaginal bleeding Discharge ED Provider: Maikel Cullen General Adult HPI General Chief complaint: Vaginal Bleeding Stated complaint: ,bleeding Time Seen by Provider: 08/11/22 13:24 Mode of Arrival: Ambulatory Source of Information: Parent(s) Limitations: No Limitations Description of Symptoms (Recalled from ER Triage Doc. by RN): 27 F presents back to our ED from a visit yesterday for vaginal bleeding. She is 15 weeks, without previous complication. Patient is supposed to see Dr. Bonilla at 1500 today; however, she is still bleeding and passing clots. The office advised her to come to the ED for further evaluation. Patient reports the bleeding has decreased, but the clots she is passing is new. History of Present Illness HPI narrative: Patient presents with passage of vaginal clots that began approximate 1 hour prior to ED presentation. She notes some mild abdominal cramping. She is approximate 15 weeks . She was seen by me yesterday here and had an ultrasound done at that time. She is supposed to see her OB this afternoon at 3:00 however the clots concerned her prompting her to come to the ED after she was advised to do so reportedly by her OB doctor. Related Data Home Medications Medication Instructions Recorded Confirmed pediatric multivitamin no.49 1 tab PO DAILY 05/25/22 08/11/22 (Flintstones Gummies chewable tablet) vitamin with calcium 1 tab PO DAILY 07/15/22 08/11/22 no.72-iron 27 mg-folic acid 1 mg tablet (M- Plus) famotidine 20 mg tablet (Pepcid) 20 mg PO DAILY Acid reflux 08/11/22 08/11/22 metronidazole 0.75 % (37.5 mg/5 1 appful vaginal HS Vaginal 08/11/22 08/11/22 gram) vaginal gel progesterone micronized 200 mg 200 mg vaginal HS 08/11/22 08/11/22 capsule (Prometrium) Allergies Allergy/AdvReac Type Severity Reaction Status Date / Time No Known Allergies Allergy Verified 07/31/22 11:32 [facility] Disclaimer: The information contained in this section may have been updated after the patient was seen, as this information can be updated by other users. 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 Abnormal weight Acne Anxiety Depression Maternal obesity affecting , antepartum Morbid obesity with BMI of 40.0-44.9, adult Positive urine test Surgical History History of appendectomy History of cholecystectomy Social History Smoking Status: Never smoker alcohol intake: never substance use type: denies use current occupational status: other Travel in the last 8 weeks: None housing: apartment ROS Obtained: Yes All systems reviewed & no additional complaints except as documented Physical Exam General General appearance: alert and in no apparent distress Head Head exam: atraumatic, normocephalic and normal inspection Eye Eye exam: Present normal appearance, PERRL and EOMI ENT ENT exam: Present normal exam, normal oropharynx, mucous membranes moist, TM's normal bilaterally and nor
--- NOTE | 2022-08-11 15:42 | PC.NURSE ---
ED doctor on phone with Dr. Bonilla
[2022-08-11 15:43] LABS: Basophils % 0.3 % (0.1-2.0); Eosinophils # 0.1 K/mm3 (0.0-0.4); Hematocrit 39.8 % (37.0-47.0); Hemoglobin 13.5 g/dL (12.2-16.2); Lymphocytes # 1.8 K/mm3 (0.7-4.5); Lymphocytes % 22.4 % (10-50); Mean Corpuscular HGB Conc 34.1 g/dL (31.8-35.4); Mean Corpuscular Hemoglobin 30.5 pg (27.0-31.2); Mean Corpuscular Volume 89.5 fl (81-99); Mean Platelet Volume 9.7 fl (7.4-10.4); Monocytes # 0.5 K/mm3 (0.1-1.0); Monocytes % 6.6 % (1.7-9.3); Neutrophils # 5.5 K/mm3 (1.8-7.8); Neutrophils % 69.6 % (37.0-80.0); Platelet Count 160 K/mm3 (142-424); Red Blood Count 4.44 M/mm3 (4.20-5.40); Red Cell Distribution Width 13.2 % (11.5-17.5); White Blood Count 7.9 K/mm3 (4.8-10.8)
[2022-08-11 15:49] LABS: Chloride 98 mmol/L (98-107); Potassium 3.7 mmoL/L (3.5-5.1); Sodium 135 mmol/L (136-145)
[2022-08-11 15:52] LABS: Alanine Aminotransferase 25 U/L (12-78); Albumin Level 3.9 g/dl (3.5-5.0); Albumin/Globulin Ratio 1.1 (1.1-1.8); Alkaline Phosphatase 86 U/L (38-126); Anion Gap 15.7 mEq/L (5-15); Aspartate Amino Transferase 28 U/L (14-36); Bilirubin,Total 0.5 mg/dl (0.2-1.3); Blood Urea Nitrogen 5 mg/dl (7-17); Calcium 9.2 mg/dl (8.4-10.2); Carbon Dioxide 25 mmol/L (22.0-30.0); Creatinine Clearance Estimated 128 mL/min (50-200); Estimated Glomerular Filt Rate 148 ml/min (>60); GFR (African American) 179 ML/MIN (>60); Globulin 3.6 g/dL (1.3-3.2); Glucose 94 mg/dl (74-100); Total Protein,Serum 7.5 g/dl (6.3-8.2)
[2022-08-11 16:21] VITALS: BP 127/60; PULSE 95; RESP 18; TEMP 36.8; O2SAT 98
== END 2022-08-11 16:22 | disposition home or self-care (01) ==
PROVIDERS: Emergency Provider Emergency Medicine; PCP Physician Assistant
DX: O20.0 Threatened abortion (principal); Z3A.15 15 weeks gestation of pregnancy
CPT/HCPCS: 36415; 80053; 85025; 99283

== ENCOUNTER → 2022-09-16 14:14 | Outpatient (CLI) | payer OTHER, SELFPAY ==
--- NOTE | 2022-09-16 14:18 | US_ITS ---
PROCEDURE: US OB /MATERNAL DETAIL CLINICAL INDICATION: 20 week anatomy scan COMPARISON: US US OB >= 14 WEEKS FETUS from 08/10/2022 FINDINGS: Single viable intrauterine gestation. Breech position. Placenta: Anteriorplacenta grade 1. There is average amount fluid. The cervix appears satisfactory. Closed and measuring in length. Complete survey performed and was unremarkable on the submitted images as in PACS. No discrete anomalies identified on survey imaging by technologist. Active fetus. Three-vessel cord with satisfactory umbilical cord insertion. 4- chamber heart noted. Normal-left and right ventricular outflow tracts are normal. Survey of brain & ventricles Unremarkable. Cerebellum, ventricles, choroid plexus, thalamus, cisterna magna normal Face and neck survey unremarkable. Profile, nasion, upper lip normal Diaphragm and chest views unremarkable. Abdomen: Both kidneys noted and unremarkable. Stomach noted and satisfactory. Bladder appears normal. Spine: Survey of the spine satisfactory with no anomalies identified nor imaged. Upper, thoracic and sacral spine appear normal. Both arms and legs noted. Amniotic Fluid: Adequate. Maternal adnexa: Not visualized. Measurements: Average ultrasound age 21weeks 0 days. Gestational Age 20weeks 5 days Estimated due date by ultrasound age 1001/27/2023. Estimated weight 414g BPD = 20weeks 3days OFD = 21weeks 6days HC = 20weeks 4days AC = 22weeks 2days FL = 20weeks 3days Growth Percentile= 77Percent Heart Rate = 140bpm Cerebellum = 21weeks 4days Humerus = 21weeks 5days HC/AC is 1.05 CI is 0.71 FL/BPD is 0.7 FL/AC is 0.19 IMPRESSION: 1. Viable fetus in the breech presentation with an anterior placenta grade 1 2. Anatomical scan appears normal. 3. Size and dates are congruent. Dictated by: Humble Bonilla MD 09/17/2022 17:43 Humble Bonilla MD in OV 09/17/2022 17:43
== END ==
LOC: RAD 14:15
PROVIDERS: PCP Physician Assistant; Visit Provider Nurse Practitioner Obstetrics & Gynecology
DX: Z34.90 Encounter for supervision of normal pregnancy, unspecified, unspecified trimester (principal); Z3A.20 20 weeks gestation of pregnancy
CPT/HCPCS: 76811

== ENCOUNTER → 2022-10-31 08:08 | Outpatient (CLI) | payer OTHER, SELFPAY ==
[2022-10-31 09:05] LABS: Glucose,Fasting 99 mg/dl (74-100)
[2022-10-31 09:19] LABS: HCG,Quantitative 10425 mIU/ml (0-5.42)
[2022-10-31 10:15] LABS: Glucose 1 Hour 202 mg/dL (74-100)
[2022-10-31 13:34] LABS: Basophils % 0.2 % (0.1-2.0); Eosinophils # 0.1 K/mm3 (0.0-0.4); Hematocrit 33.5 % (37.0-47.0); Hemoglobin 11.7 g/dL (12.2-16.2); Lymphocytes % 28.9 % (10-50); Mean Corpuscular HGB Conc 34.7 g/dL (31.8-35.4); Mean Corpuscular Hemoglobin 31.3 pg (27.0-31.2); Mean Corpuscular Volume 90.1 fl (81-99); Mean Platelet Volume 10.9 fl (7.4-10.4); Monocytes # 0.3 K/mm3 (0.1-1.0); Monocytes % 4.9 % (1.7-9.3); Neutrophils # 4.5 K/mm3 (1.8-7.8); Neutrophils % 64.9 % (37.0-80.0); Platelet Count 144 K/mm3 (142-424); Red Blood Count 3.72 M/mm3 (4.20-5.40); Red Cell Distribution Width 14.3 % (11.5-17.5)
== END ==
LOC: LAB 08:09
PROVIDERS: PCP Physician Assistant; Visit Provider Nurse Practitioner Obstetrics & Gynecology
DX: Z34.92 Encounter for supervision of normal pregnancy, unspecified, second trimester (principal); Z3A.25 25 weeks gestation of pregnancy
CPT/HCPCS: 36415; 82951; 84702; 85025

== ENCOUNTER → 2022-11-08 08:38 | Outpatient (CLI) | payer OTHER, SELFPAY ==
[2022-11-08 09:01] LABS: Glucose,Fasting 99 mg/dl (74-100)
[2022-11-08 10:17] LABS: Glucose 1 Hour 195 mg/dL (74-100)
[2022-11-08 11:34] LABS: Glucose 2 Hour 186 mg/dL (74-100)
[2022-11-08 12:15] LABS: Glucose 3 Hour 135 mg/dL (74-100)
== END ==
PROVIDERS: PCP Physician Assistant; Visit Provider Nurse Practitioner Obstetrics & Gynecology
DX: O99.810 Abnormal glucose complicating pregnancy (principal); Z3A.28 28 weeks gestation of pregnancy
CPT/HCPCS: 36415; 82951

== ENCOUNTER → 2023-01-02 16:36 | Outpatient (CLI) | payer OTHER, SELFPAY | LOC: LAB.DROPOF 16:37 | PROVIDERS: Visit Provider Obstetrics & Gynecology | DX: Z34.93 Encounter for supervision of normal pregnancy, unspecified, third trimester (principal); Z3A.36 36 weeks gestation of pregnancy | CPT/HCPCS: 86403 ==

== ENCOUNTER → 2023-01-08 09:42 | Outpatient (CLI) | payer OTHER, SELFPAY ==
--- NOTE | 2023-01-08 09:45 | US_ITS ---
PROCEDURE: US OB BIOPHYSICAL PROFILE CLINICAL INDICATION: lga, gestational diabetes on insulin. COMPARISON: FINDINGS: Transabdominal sonographic images of the uterus were obtained. From her established due date she is 37weeks. The following parameters are obtained: Viable fetus in the cephalic presentation with an anterior placenta grade 3. Average ultrasound age is 37weeks 5days. Estimated due date by ultrasound is 01/24/2023. Estimated weight is 7lb 10 oz. 88Percentile. heart rate: 153bpm bpm. BPD: 37weeks 5days OFD: 37weeks 5days HC: 36 weeks 4 days AC: 39 weeks 4 days FL: 37 weeks 2 days HC/AC: 0.91 Cephalic index: 0.82 FL/BPD: 0.79 FL/AC: 0.2 Amniotic fluid index: 3.24cm Qualitative AFV: 2 breathing movements: 2 Gross body movements: 2 Tone: 2 Biophysical profile score: 8 No obvious anomalies evident.Kidneys, stomach, diaphragm, four-chamber view, three-vessel cord appear normal. IMPRESSION: 1. Viable fetus in the cephalic presentation with an anterior placenta grade 3. 2. The fluid is low with an amniotic fluid index of 3.24. There was just 1 small pocket of fluid. 3. There has been good interval growth with the fetus currently 7 pounds 10 ounces, 88th percentile. 4. Biophysical profile 11/18 with good breathing movement seen. 5. Physician was notified of the low fluid. Dictated by: Humble Bonilla MD 01/08/2023 13:52 Humble Bonilla MD in OV 01/08/2023 13:52
== END ==
PROVIDERS: PCP Physician Assistant; Visit Provider Nurse Practitioner Obstetrics & Gynecology
DX: O36.63X0 Maternal care for excessive fetal growth, third trimester, not applicable or unspecified (principal); Z3A.37 37 weeks gestation of pregnancy
CPT/HCPCS: 76816; 76819

== ENCOUNTER 2023-01-09 10:07 | Outpatient (CLI) | payer OTHER, SELFPAY ==
[2023-01-09 10:28] VITALS: BP 138/83; PULSE 80; RESP 18; TEMP 37.2; O2SAT 98; BMI 41.7
[2023-01-09 10:47] LABS: POC Glucose,Bedside 105 (70-110)
[2023-01-09 11:10] VITALS: BMI 41.7
[2023-01-09 11:27] LABS: Chloride 108 mmol/L (98-107); Potassium 3.6 mmoL/L (3.5-5.1); Sodium 138 mmol/L (136-145)
[2023-01-09 11:28] LABS: Basophils % 0.4 % (0.1-2.0); Eosinophils # 0.1 K/mm3 (0.0-0.4); Eosinophils % 0.6 % (0.1-12.0); Hematocrit 37.5 % (37.0-47.0); Lymphocytes # 1.7 K/mm3 (0.7-4.5); Mean Corpuscular HGB Conc 31.9 g/dL (31.8-35.4); Mean Corpuscular Volume 84.6 fl (81-99); Monocytes # 0.4 K/mm3 (0.1-1.0); Monocytes % 4.9 % (1.7-9.3); Neutrophils # 5.2 K/mm3 (1.8-7.8); Neutrophils % 71.1 % (37.0-80.0); Platelet Count 132 K/mm3 (142-424); Red Blood Count 4.43 M/mm3 (4.20-5.40); Red Cell Distribution Width 14.7 % (11.5-17.5); White Blood Count 7.3 K/mm3 (4.8-10.8)
[2023-01-09 11:30] LABS: Alanine Aminotransferase 31 U/L (12-78); Albumin Level 3.3 g/dl (3.5-5.0); Alkaline Phosphatase 232 U/L (38-126); Anion Gap 11.6 mEq/L (5-15); Aspartate Amino Transferase 31 U/L (14-36); Bilirubin,Total 0.3 mg/dl (0.2-1.3); Blood Urea Nitrogen 4 mg/dl (7-17); Calcium 8.8 mg/dl (8.4-10.2); Carbon Dioxide 22 mmol/L (22.0-30.0); Creatinine Clearance Estimated 159 mL/min (50-200); Estimated Glomerular Filt Rate 191 ml/min (>60); GFR (African American) 232 ML/MIN (>60); Globulin 3.3 g/dL (1.3-3.2); Glucose 101 mg/dl (74-100); Total Protein,Serum 6.6 g/dl (6.3-8.2)
[2023-01-09 11:31] LABS: Fetal Membrane Rupture (Rapid) Negative (Negative)
== END 2023-01-09 11:53 | disposition home or self-care (01) ==
LOC: OBOUT 10:08 → OB 10:13
PROVIDERS: PCP Physician Assistant; Visit Provider Nurse Practitioner Obstetrics & Gynecology
DX: O26.893 Other specified pregnancy related conditions, third trimester (principal); Z3A.37 37 weeks gestation of pregnancy
CPT/HCPCS: 59025; 80053; 82962; 84112; 85025; 96365; G0463

== ENCOUNTER 2023-01-10 04:48 | Inpatient (IN) | payer OTHER, SELFPAY ==
[2023-01-10 04:51] VITALS: BMI 42.9
[2023-01-10 05:24] LABS: Microscopic, Urine URINE MICROSCOPIC (MICROSCOPIC)
[2023-01-10 05:32] LABS: Appearance,Urine CLEAR (Clear); Bilirubin,Urine Negative (Negative); Blood, Urine Negative (Negative); Color,Urine YELLOW (Yellow); Glucose,Urine (UA) Negative (Negative); Ketones,Urine Negative (Negative); Leukocyte Esterase,Urine Negative (Negative); Nitrate,Urine Negative (Negative); Protein,Urine Negative (Negative)
[2023-01-10 05:37] LABS: POC Glucose,Bedside 83 (70-110)
[2023-01-10 05:44] LABS: Barbiturates Screen,Urine Negative ng/ml (<200)
[2023-01-10 05:45] LABS: Benzodiazepines Screen,Urine Negative ng/ml (<200)
[2023-01-10 05:46] LABS: Amphetamine/Metha Screen,Urine Negative ng/ml (<1000); Cannabinoid Screen,Urine Negative ng/ml (<50)
[2023-01-10 05:49] VITALS: BP 140/85; PULSE 93; RESP 17; TEMP 36.8; O2SAT 97; BMI 42.8
[2023-01-10 05:53] LABS: Bacteria,Urine Trace /lpf; WBC,Urine Occasional #/hpf (0-3)
--- NOTE | 2023-01-10 08:28 | HMH.PHAINT1 ---
Pharmacy Intervention Comments: MEDICATION RECONCILIATION COMPLETED ON PATIENT USING EXTERNAL FILL HISTORY FROM PHARMACY. -JAMES MASSEY, [place]
[2023-01-10 08:43] LABS: Opiate Screen,Urine Negative ng/ml (<300)
[2023-01-10 08:44] LABS: Cocaine Screen,Urine Negative ng/ml (<300)
[2023-01-10 08:45] LABS: Methadone Screen,Urine Negative ng/ml (<300)
--- NOTE | 2023-01-10 08:45 | EXP.LABOR.NO ---
Labor Note Subjective: Date: 01/10/23 Time: 08:45 regular contraction Objective: NST:: Reactive Contractions:: every 2-3 minutes Cervical Dilation:: 3 Effacement:: 75% Station: -2 Membranes: artificially ruptured Comment:: There was minimal clear fluid. Fetus: Monitoring?: Yes monitoring type:: Internal Comment:: I inserted a scalp clip as well as an IUPC. Assessment: Labor progressing?: Yes Cephalopelvic disproportion?: No Plan: Anesthesia for epidural?: Yes Continue to labor down?: Yes Plan for ?: No Continue to monitor?: Yes Start pushing?: No
[2023-01-10 08:46] LABS: Phencyclidine Screen,Urine Negative ng/ml (<25)
--- NOTE | 2023-01-10 08:46 | EXP.HP ---
History of Present Illness *Admission Date: 01/10/23 *Reason for visit:: Term , oligohydramnios *History of present illness: She is a 27-year-old 3 para 2 at 37 and 2 weeks gestational age. Ultrasound showed oligohydramnios with an amniotic fluid index of 3 cm. As result of that she is admitted for induction of labor at term. She also has gestational diabetes and has been managed most recently with insulin. A positive blood Rubella immune GBS negative PFSH PFSH Disclaimer: The information contained in this section may have been updated after the patient was seen, as this information can be updated by other users. 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 Abnormal weight Acne Anxiety Depression Gestational diabetes Maternal obesity affecting , antepartum Morbid obesity with BMI of 40.0-44.9, adult Surgical History History of appendectomy History of cholecystectomy Family History No significant family history Social History Smoking Status: Never smoker alcohol intake: never substance use type: denies use current occupational status: employed Travel in the last 8 weeks: None housing: apartment Review of Systems Review of Systems Review of systems:: pertinent systems reviewed and negative unless documented below Meds Home Medications and Allergies Home Medications Medication Instructions Recorded Confirmed Type pediatric multivitamin no.49 1 tab PO DAILY Supplement 05/25/22 01/10/23 History (Ja Gummies chewable tablet) famotidine 20 mg tablet (Pepcid) 20 mg PO DAILY Acid reflux 08/11/22 01/10/23 History insulin glargine 100 unit/mL (3 20 unit SQ HS Diabetes 12/25/22 01/10/23 History mL) subcutaneous pen (Basaglar KwikPen U-100 Insulin) blood sugar diagnostic (OneTouch 01/10/23 01/10/23 History Verio test strips) New Prescriptions to Start Prescriptions: Allergies Allergy/AdvReac Type Severity Reaction Status Date / Time No Known Allergies Allergy Verified 01/08/23 08:13 Exam Data for Last 24 hours Vital signs and Labs for Last 24 Hours: Temp Pulse Resp BP Pulse Ox O2 Del Method 98.3 F 93 H 17 140/85 97 Room Air 01/10/23 05:49 01/10/23 05:49 01/10/23 05:49 01/10/23 05:49 01/10/23 05:49 01/10/23 05:49 Laboratory Results - last 24 hr 01/10/23 04:59: Urine Color Yellow, Urine Appearance Clear, Urine pH 7.0, Ur Specific Tuttle 1.010, Urine Protein Negative, Urine Glucose (UA) Negative, Urine Ketones Negative, Urine Blood Negative, Urine Nitrate Negative, Urine Bilirubin Negative, Urine Urobilinogen 1.0, Ur Leukocyte Esterase Negative, Urine RBC None, Urine WBC Occasional, Ur Squamous Epith Cells 3-5, Urine Bacteria Trace, Ur Barbituates Screen Negative, Ur Amphetamines Screen Negative, U Benzodiazepines Scrn Negative, U Marijuana (THC) Screen Negative 01/10/23 05:18: Blood Type A Positive, Antibody Screen Negative 01/10/23 05:29: POC Glucose 83 I & O for Last 24 hours: Intake & Output 01/07/23 01/08/23 01/09/23 01/10/23 11:59 11:59 11:59 11:59 Weight 226 lb 15.983 oz Constitutional Constitutional: no acute distress *Routine HEENT Exam Head: Present normocephalic Eye: Present EOMI and PERRL ENT: Present mucous membranes moist *Routine Neck Exam Neck: Present supple; Absent lymphadenopathy *Routine Respiratory Exam Respiratory: Present CTA bilaterally *Routine Cardiovascular Exam Cardiovascular: Present RRR *Routine Abdominal Exam Abdominal: Present soft and normoactive bowel sounds; Absent tenderness *Routine Rectal Exam Rectal:: deferred *Routine Genitalia Exam Genitalia:: deferred *Routine Extremities Exam Extremities: Absent cyanosis, clubbing or edema *Routine Skin Exam Skin: Present warm; Absent rash *Routi
--- NOTE | 2023-01-10 11:19 | EXP.ANES.CKL ---
[facility] Disclaimer: The information contained in this section may have been updated after the patient was seen, as this information can be updated by other users. 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 Abnormal weight Acne Anxiety Depression Gestational diabetes Maternal obesity affecting , antepartum Morbid obesity with BMI of 40.0-44.9, adult Surgical History History of appendectomy History of cholecystectomy Family History No significant family history Social History Smoking Status: Never smoker alcohol intake: never substance use type: denies use current occupational status: employed Travel in the last 8 weeks: None housing: apartment [facility] Anesthesia Checklist Patient Identification Patient Identification: Arm Band Structural Data Admitted From: Inpatient Planned Operative Procedure/s: Labor Epidural Consent for Planned Operative Procedure(s) Verified: Yes Verified Documents: Surgical Consent and History and Physical NPO Status Verified Time NPO: 00:00 Additional verifications Anesthesia Reactions: No Airway Assessment Dentition: Good Dentition Neurological Assessment Level of Consciousness: Awake and Alert Anesthesia Plan Anesthesia Risk discussed: Yes Anesthesia Plan: Verified ASA Class: II Anesthesia Type: Epidural
--- NOTE | 2023-01-10 12:58 | EXP.LABOR.NO ---
Labor Note Subjective: Date: 01/10/23 Time: 12:58 regular contraction Objective: NST:: Reactive Contractions:: every 2-3 minutes Cervical Dilation:: 5 Effacement:: 100% Station: -2 Membranes: artificially ruptured Fetus: Monitoring?: Yes monitoring type:: Internal Assessment: Labor progressing?: Yes Cephalopelvic disproportion?: No Plan: Anesthesia for epidural?: Yes Continue to labor down?: Yes Plan for ?: No Continue to monitor?: Yes Start pushing?: No
--- NOTE | 2023-01-10 15:16 | EXP.DN ---
Delivery Note Delivery Date:: 01/10/23 Delivery Time:: 15:06 Anesthesia Type: Epidural Was labor medically induced?: Yes Induction method: per pitocin protocol Gestational age (weeks): 37 delivered prior to 39 weeks?: Yes Justification for early elective delivery:: Oligohydraminos Gender: Female at 1 minute: 9 at 5 minutes: 9 Delivery Procedure:: She is a 27-year-old 3 para 2 at 37+ weeks gestational age. She was seen in the ultrasound department and had low fluid. The amniotic fluid index was 3 cm. As result of that we elected to induce her labor. She was started on IV oxytocin had her membranes ruptured. Under labor epidural she progressed to full dilation and delivered spontaneously a liveborn female child at 3:06 PM in the afternoon of January 10, 2023. On delivery the head the anterior shoulder easily delivered. This was followed by the rest of his body atraumatically. Baby was stimulated and cried spontaneously. We allowed the cord to continue to pulsate for approximately 1 minute. The cord was then doubly clamped and cut and was placed on the mother's abdomen for further care. The nurse assigned Apgars of 9 at 1 minute and 9 at 5 minutes. We then obtained cord blood. She received IV oxytocin and using gentle traction on the cord and countertraction the fundus I was able to easily deliver the placenta intact. He had a normal three-vessel cord. Estimated blood loss was approximately 100 cc. There were no perineal or vaginal lacerations. Placental Delivery Description: Spontaneous
[2023-01-10 20:45] VITALS: BP 123/68; PULSE 83; RESP 16; TEMP 36.8
[2023-01-11 07:34] LABS: Hematocrit 32.9 % (37.0-47.0); Hemoglobin 10.7 g/dL (12.2-16.2)
--- NOTE | 2023-01-11 08:54 | EXP.ACUTE.PN ---
Subjective *Date: 01/11/23 *Time: 08:54 Interval history: She continues to do well this morning. She is eating and drinking and ambulating. Her lochia is normal. She denies any pain. Medical Exam Vital signs and Labs for Last 24 Hours: Vital Signs Temp Pulse Resp BP 01/10/23 20:45 98.3 F 83 16 123/68 Laboratory Results - last 24 hr 01/11/23 06:20: Hgb 10.7 L, Hct 32.9 L I & O for Labs for Last 24 Hours: Intake & Output 01/08/23 01/09/23 01/10/23 01/11/23 11:59 11:59 11:59 11:59 Weight 226 lb 15.983 oz Head: Present normocephalic Neck: Present normal inspection Respiratory: Present normal respiratory effort; Absent accessory muscle use Assessment and Plan *Assessment and plan (1) Oligohydramnios in herrera in third trimester: Status: Acute Category: Medical Code(s): O41.03X0 - Oligohydramnios, third trimester, not applicable or unspecified (2) Gestational diabetes: Status: Acute Qualifiers: Gestational diabetes mellitus control: insulin-controlled Trimester: third trimester Qualified Code(s): O24.414 - Gestational diabetes mellitus in , insulin controlled Category: Medical Code(s): O24.419 - Gestational diabetes mellitus in , unspecified control (3) Normal delivery at term: Status: Acute Category: Medical Code(s): O80 - Encounter for full-term uncomplicated delivery Plan She continues to do very well. She is eating and drinking and ambulating. We will plan to send her home tomorrow.
[2023-01-12 08:37] VITALS: BP 124/74; PULSE 79; RESP 18; TEMP 36.6; O2SAT 98
--- NOTE | 2023-01-12 09:52 | EXP.DC.SUM ---
General Admission date:: 01/10/23 Discharge date: 02/12/23 HPI HPI HPI: She is a 27-year-old 3 para 2 at 37 and 2 weeks gestational age. Ultrasound showed oligohydramnios with an amniotic fluid index of 3 cm. As result of that she is admitted for induction of labor at term. She also has gestational diabetes and has been managed most recently with insulin. A positive blood Rubella immune GBS negative Hospital Course Hospital Course Hospital Course: She was started on oxytocin and had her membranes ruptured. Under labor epidural she progressed to full dilation and delivered spontaneously a liveborn female child at 3:06 PM in the afternoon of January 10, 2023. The baby weighed 7 pounds 11 ounces and was 19 inches long. She had Apgars of 9 at 1 minute and 9 at 5 minutes. She has done well and has remained afebrile throughout her hospitalization. She is eating and drinking and ambulating. She is bottlefeeding. Her lochia is normal. 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 Da Silva. She has a positive blood, she is well immune and was group B streptococcus negative. She is discharged home to follow-up with me in approximate 2 weeks time. She will continue with her vitamins and iron. She was given the usual instructions with respect to limiting her activity, driving and sexual activity. She would like a Mirena IUD and we will put this in at 6 weeks . Her condition on discharge is stable and improved. Exam Data for Last 24 hours Vital signs and Labs for Last 24 Hours: Temp Pulse Resp BP Pulse Ox O2 Del Method 98.3 F 83 16 123/68 97 Room Air 01/10/23 20:45 01/10/23 20:45 01/10/23 20:45 01/10/23 20:45 01/10/23 05:49 01/10/23 05:49 I & O for Last 24 hours: Intake & Output 01/09/23 01/10/23 01/11/23 01/12/23 11:59 11:59 11:59 11:59 Weight 226 lb 15.983 oz Constitutional Constitutional: no acute distress *Routine HEENT Exam Head: Present normocephalic *Routine Respiratory Exam Respiratory: Present normal respiratory effort; Absent accessory muscle use DS: Diagnosis Discharge Diagnosis (1) Oligohydramnios in herrera in third trimester: Status: Acute Code(s): O41.03X0 - Oligohydramnios, third trimester, not applicable or unspecified (2) Gestational diabetes: Status: Acute Code(s): O24.419 - Gestational diabetes mellitus in , unspecified control Qualifiers: Gestational diabetes mellitus control: insulin-controlled Trimester: third trimester Qualified Code(s): O24.414 - Gestational diabetes mellitus in , insulin controlled (3) Normal delivery at term: Status: Acute Code(s): O80 - Encounter for full-term uncomplicated delivery Meds Home Medications and Allergies Home Medications Medication Instructions Recorded Confirmed Type pediatric multivitamin no.49 1 tab PO DAILY Supplement 05/25/22 01/10/23 History (Flintstones Gummies chewable tablet) famotidine 20 mg tablet (Pepcid) 20 mg PO DAILY Acid reflux 08/11/22 01/10/23 History blood sugar diagnostic (OneTouch 01/10/23 01/10/23 History Verio test strips) New Prescriptions to Start Prescriptions: Allergies Allergy/AdvReac Type Severity Reaction Status Date / Time No Known Allergies Allergy Verified 01/08/23 08:13 Discharge Plan Disposition Patient Disposition: Home, Self-Care Discharge Order Discharge Orders: Discharge Order (Routine); Ordered 01/12/23 Ordered By: Humble Bonilla Follow up Plan Follow up with: Humble Bonilla MD [Staff Physician] - 01/26/23 10:45 am Prescriptions/Medication Reconciliation: Continued Flintstones Gummies Tablet,Chewable 1 tab PO DAILY famotidine [Pepcid] 20 mg tablet 20 mg PO DAILY Discontinued insulin glargine [Basaglar KwikPen U-100 Insulin] 100 unit/mL (3 mL) insulin pen 20 unit SQ HS No Action (DME) OneTouch Verio test strip
== END 2023-01-12 12:30 | disposition home or self-care (01) | DRG 807 ==
PROVIDERS: Admitting Provider Nurse Practitioner Obstetrics & Gynecology; PCP Physician Assistant; Visit Provider Nurse Practitioner Obstetrics & Gynecology
DX: O41.03X0 Oligohydramnios, third trimester, not applicable or unspecified (principal); Z37.0 Single live birth; O99.214 Obesity complicating childbirth; Z3A.37 37 weeks gestation of pregnancy; O24.429 Gestational diabetes mellitus in childbirth, unspecified control
CPT/HCPCS: 59409; 59025; 80305; 81001; 82962; 85014; 85018; 86850; 94761; C1758; G0283

== ENCOUNTER 2023-04-15 15:28 | Emergency (ER) | payer OTHER, SELFPAY ==
[2023-04-15 15:48] VITALS: BP 116/79; PULSE 95; RESP 18; TEMP 36.6; O2SAT 98; BMI 40.6
--- NOTE | 2023-04-15 15:54 | CA_ITS ---
FINAL REPORT TECHNIQUE: Color Doppler, duplex Doppler and compression sonography of the right lower extremity venous system was performed. CLINICAL HISTORY: edema, 3 months post , tightness in right calf, obesity FINDINGS: There is no evidence of deep venous thrombosis from the level of the groin to the calf. The veins are patent and compressible. IMPRESSION: No evidence of deep venous thrombosis right lower extremity. Reviewed, Interpreted and Dictated by Mikie Fonseca III, MD Transcribed by Mary Grace Gaffney Authenticated and . [facility]
--- NOTE | 2023-04-15 16:15 | ED_ITS ---
Discharge Plan Disposition Patient Disposition: Home, Self-Care Condition: Good Prescriptions Prescriptions: No Action No Known Home Medications Referrals Follow up/Referrals: Heather Solo PA [Primary Care Provider] - See instructions Activity Restrictions/Add. Instructions Additional Instructions/Restrictions: follow up with pcp for more work up on elevated liver enzymes call for hep panel Clinical Impressions Clinical Impression: Cramp in muscle Instructions Patient Instructions: DI for Leg Pain [facility] [facility] [place] General Stated complaint: right leg pain, no accident Mode of Arrival: Ambulatory Source of Information: Patient Limitations: No Limitations Time Seen by Provider: 04/15/23 16:16 Description of Symptoms (Recalled from Triage Doc. by RN): Pain in right lower calf she describe as a jose horse . HEENT Symptoms (Recalled from RN notes): No Resp Symptoms (Recalled from RN notes): No Skin Symptoms (Recalled from RN notes): No MS Symptoms (Recalled from RN notes): Yes Functional Status (Recalled from RN notes): n/a History of Present Illness Provider Complaint: 27 yr old female presents for cramp in rt lower leg for 3 days. pt states her rt calf feels swollen and a sharp pain with walking. pt states it feels like a constant jose horse Related Data Home Medications Medication Instructions Recorded Confirmed No Known Home Medications 01/26/23 03/16/23 Allergies Allergy/AdvReac Type Severity Reaction Status Date / Time No Known Allergies Allergy Verified 04/15/23 16:06 Worker's Comp Is this a Worker's Comp case?: No [facility] Disclaimer: The information contained in this section may have been updated after the patient was seen, as this information can be updated by other users. 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) Smoking Status: Never smoker alcohol intake: never substance use type: denies use current occupational status: employed Travel in the last 8 weeks: None housing: apartment ROS Obtained: Yes All systems reviewed & no additional complaints except as documented Constitutional Constitutional: Reports system reviewed and no additional complaints, except as documented Eyes Eyes: Reports system reviewed and no additional complaints, except as documented ENT Ears, Nose, Mouth, and Throat: Reports system reviewed and no additional complaints, except as documented Cardiovascular Cardiovascular: Reports system reviewed and no additional complaints, except as documented Respiratory Respiratory: Reports system reviewed and no additional complaints, except as documented Gastrointestinal Gastrointestingal: Reports system reviewed and no additional complaints, except as documented Musculoskeletal Musculoskeletal: Reports system reviewed and no additional complaints, except as documented, Reports as per HPI, Reports muscle cramps and Reports myalgias Integumentary/Breasts Skin/Breast: Reports system reviewed and no additional complaints, except as documented Endocrine Endocrine: Reports system reviewed and no additional complaints, except as documented Physical Exam General General appearance: alert and in no apparent distress Head Head exam: atraumatic Eye Eye exam: Present normal appearance and PERRL ENT ENT exam: Present normal exam, normal oropharynx, mucous membranes moist and T M's normal bilaterally Respiratory Respiratory exam: Present normal lung sounds bilaterally Cardiovascular Cardiovascular exam: Present regular rate and normal rhythm Extremities Exam Extremities exam: Present normal inspection, tenderness, normal capillary refill, edema and calf tenderness Expanded Lower Extremity Exam Right: Leg image: 1. tender Knee exam: Present normal inspection Neurological Exam Neurological exam: Present alert and oriented X3 Skin Skin exam: Present warm Medical Decision Making Medical Records Medical records reviewed: Yes I reviewed the patient's medical records. Robert Inquiry Pt receiving controlled substance: No Robert was queried for this patient: No Vital Signs: 04/15/23 15:48 Temperature 97.9 F Temperature Source Oral Pulse Rate [Right Radial] 95 H Respiratory Rate 18 Blood Pressure [Right Arm] 116/79 Blood Pressure Mean [Right Arm] 91 Blood Pressure Source [Right Arm] Automatic Cuff Blood Pressure Position [Right Arm] Sitting 02 Sat by Pulse Oximetry 98 Oxygen Delivery Method Room Air Lab Data Lab results reviewed: Yes I reviewed the patient's lab results. 04/15/23 16:27 04/15/23 16:27 Orders (Tests/Meds): ORDERS Category Date Time Status CA venous doppler LE RT Stat Y 04/15/23 15:54 Completed
[2023-04-15 16:33] LABS: MANUAL DIFFERENTIAL MANUAL DIFFERENTIAL (MANUAL DIFF)
[2023-04-15 16:37] LABS: Basophils # 0.1 K/mm3 (0-0.2); Basophils % 0.7 % (0.1-2.0); Eosinophils # 0.1 K/mm3 (0.0-0.4); Eosinophils % 1.3 % (0.1-12.0); Hematocrit 39.9 % (37.0-47.0); Hemoglobin 13.7 g/dL (12.2-16.2); Lymphocytes # 3.5 K/mm3 (0.7-4.5); Lymphocytes % 39.7 % (10-50); Mean Corpuscular HGB Conc 34.3 g/dL (31.8-35.4); Mean Corpuscular Hemoglobin 29.1 pg (27.0-31.2); Mean Platelet Volume 8.7 fl (7.4-10.4); Monocytes # 0.4 K/mm3 (0.1-1.0); Monocytes % 4.1 % (1.7-9.3); Neutrophils # 4.8 K/mm3 (1.8-7.8); Neutrophils % 54.2 % (37.0-80.0); Platelet Count 186 K/mm3 (142-424); Red Blood Count 4.69 M/mm3 (4.20-5.40); Red Cell Distribution Width 16.8 % (11.5-17.5); White Blood Count 8.8 K/mm3 (4.8-10.8)
[2023-04-15 16:42] LABS: Alanine Aminotransferase 84 U/L (12-78); Albumin Level 4.5 g/dl (3.5-5.0); Albumin/Globulin Ratio 1.3 (1.1-1.8); Alkaline Phosphatase 91 U/L (38-126); Anion Gap 9.3 mEq/L (5-15); Aspartate Amino Transferase 53 U/L (14-36); Bilirubin,Total 0.4 mg/dl (0.2-1.3); Blood Urea Nitrogen 13 mg/dl (7-17); Calcium 9.2 mg/dl (8.4-10.2); Carbon Dioxide 29 mmol/L (22.0-30.0); Chloride 103 mmol/L (98-107); Creatinine Clearance Estimated 163 mL/min (50-200); Estimated Glomerular Filt Rate 86 ml/min (>60); GFR (African American) 104 ML/MIN (>60); Globulin 3.6 g/dL (1.3-3.2); Glucose 92 mg/dl (74-100); Magnesium 1.9 mg/dl (1.6-2.3); Potassium 4.3 mmoL/L (3.5-5.1); Sodium 137 mmol/L (136-145); Total Protein,Serum 8.1 g/dl (6.3-8.2)
[2023-04-15 16:48] LABS: Eosinophils % 1 % (0-3); Lymphocytes % 48 % (10-50); Monocytes % 2 % (2-9); Neutrophils % 49 % (42-76); Platelet Estimate Normal; RBC Morphology Normal; Total Cells Counted 100
[2023-04-15 17:07] VITALS: BP 116/79; PULSE 95; RESP 18; TEMP 36.6; O2SAT 98
== END 2023-04-15 17:07 | disposition home or self-care (01) ==
PROVIDERS: Emergency Provider Nurse Practitioner Family; PCP Physician Assistant
DX: M79.661 Pain in right lower leg (principal); M62.831 Muscle spasm of calf; E66.01 Morbid (severe) obesity due to excess calories; Z68.41 Body mass index [BMI] 40.0-44.9, adult
CPT/HCPCS: 80053; 83735; 85007; 85014; 85018; 85048; 85049; 93971; 99204; 99212; G0463

== ENCOUNTER 2023-04-17 19:07 | Emergency (ER) | payer OTHER, SELFPAY ==
[2023-04-17 19:46] VITALS: BP 133/83; PULSE 86; RESP 16; TEMP 36.6; O2SAT 99; BMI 40.4
[2023-04-17 20:59] VITALS: BP 125/72; PULSE 97; RESP 16; TEMP 36.8; O2SAT 98
--- NOTE | 2023-04-18 12:13 | HMH.EDGENADL ---
Discharge Plan Disposition Patient Disposition: Home, Self-Care Condition: Good Prescriptions Prescriptions: No Action prednisone [prednisone] 20 mg tablet 20 mg PO BID Qty: 10 0RF Referrals Follow up/Referrals: Heather Solo PA [Primary Care Provider] - See instructions Activity Restrictions/Add. Instructions Additional Instructions/Restrictions: Your physical exam is consistent with plantars fasciitis. Please use the stretching exercises as discussed. You may also take NSAIDs such as ibuprofen for your pain. Please return with any new or worsening symptoms Clinical Impressions Clinical Impression: Plantar fasciitis of right foot Instructions Patient Instructions: Plantar Fasciitis, DI for Plantar Fasciitis Discharge ED Provider: Rosalino Pearson Adult HPI General Chief complaint: PAIN Stated complaint: right knee/leg pain, no accident Time Seen by Provider: 04/17/23 20:44 Mode of Arrival: Ambulatory Source of Information: Patient Limitations: No Limitations Description of Symptoms (Recalled from ER Triage Doc. by RN): pt c/o R knee pain since 04/13 without injury. pt describes the pain as a jose horse in her calf that radiates aching pain to her foot and pain in her knee. pt states she was seen in the [facility] on 04/15. pt had a (-) doppler on her RLE. pt was sent in predisone 20mg BID; however she hasn't had any relief. pt statese she has tried ibuprofen without any relief. last dose of meds was 600mg of ibuprofen around 1840. LMP 04/11. no medical hx noted. History of Present Illness HPI narrative: Patient notes right lower extremity calf pain, foot pain with no associated erythema or swelling. It is worse in the mornings. She has no symptoms on her contralateral side. She was previously evaluated within the past 48 hours with Doppler imaging that was negative for DVT. Pain is described as cramping. Previous therapies include prednisone that was prescribed for unknown reasons. She is also taken ibuprofen. She returns as the pain is continued. She has no personal or family history of DVT or PE. She denies any shortness of breath. Denies any fevers or chills. Denies any precipitating trauma. She additionally states that her electrolytes were checked during recent visit and were found to be normal. No other exacerbating or alleviating factors. Related Data Previous Rx's Medication Instructions Recorded prednisone 20 mg tablet 20 mg PO BID #10 tabs 04/15/23 Allergies Allergy/AdvReac Type Severity Reaction Status Date / Time No Known Allergies Allergy Verified 04/15/23 16:06 [facility] Disclaimer: The information contained in this section may have been updated after the patient was seen, as this information can be updated by other users. 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 (Reviewed 04/15/23 @ 16:21 by Tarsha Flores ([facility]), BRAND DESIGNER) Abnormal weight Acne Anxiety Depression Morbid obesity with BMI of 40.0-44.9, adult Surgical History (Reviewed 04/15/23 @ 16:21 by Tarsha Flores ([facility]), BRAND DESIGNER) History of appendectomy History of cholecystectomy Family History (Reviewed 04/15/23 @ 16:21 by Tarsha Flores ([facility]), BRAND DESIGNER) No significant family history Social History (Reviewed 04/15/23 @ 16:21 by Tarsha Flores ([facility]), BRAND DESIGNER) Smoking Status: Current every day smoker alcohol intake: never substance use type: denies use current occupational status: employed Travel in the last 8 weeks: None housing: apartment ROS Obtained: Yes Systems reviewed as appropriate & no additional complaints except as documented As per HPI Physical Exam General General appearance: alert and in no apparent distress Head Head exam: atraumatic and normocephalic Eye Eye exam: Present normal appearance Neck Neck exam: Present normal inspection Chest Chest inspection: Present normal inspection and symmetric chest wall rise Respiratory Respiratory exam: Present normal lung sounds bilaterally; Absent respiratory distress Cardiovascular Cardiovascular exam: Present regular rate and normal rhythm Abdominal Exam Abdominal exam: Present soft Extremities Exam Extremities exam: Present other (Right lower extremity without appreciable erythema or edema. She points to the side of her right leg this area of maximal tenderness. No bony tenderness. Negative Homans' sign however does describe focal tenderness to palpation in plantar fascia) Neurological Exam Neurological exam: Present alert and oriented X3 Psychiatric Psychiatric exam: Present normal affect and normal mood Skin Skin exam: Present warm and dry Medical Decision Making Medical Records Medical records reviewed: Yes I reviewed the patient's medical records. Robert Inquiry Pt receiving controlled substance: No Vital Signs: 04/17/23 19:46 04/17/23 20:59 Temperature 97.8 F 98.3 F Temperature Source Oral Oral Pulse Rate 97 H Pulse Rate [Right] 86 Respiratory Rate 16 16 Blood Pressure 125/72 Blood Pressure [Right Arm] 133/83 Blood Pressure Mean [Right Arm] 99 Blood Pressure Source Automatic Cuff Blood Pressure Source [Right Arm] Automatic Cuff Blood Pressure Position Sitting Blood Pressure Position [Right Arm] Sitting 02 Sat by Pulse Oximetry 99 Oxygen Delivery Method Room Air Room Air Medical Decision Narrative: Patient with history and exam per above presenting for evaluation of right lower extremity pain Diagnoses considered include DVT thought to be unlikely given negative workup and no risk factors or swelling, plantar fasciitis, soft tissue injury, muscle strain, sprain Symptoms for me are highly suggestive of plantar fasciitis, as she reports the symptoms are worse in the mornings, especially with ambulation, when clarified further reports that her calf pain is radiating from the bottom of her foot. She was instructed to continue course of NSAIDs, and I personally showed her stretching exercises she may complete for symptomatic relief. Better footwear may also help as well as follow-up with podiatry. She expressed understanding and agreement with this plan. Return precautions were given. Critical Care Critical Care Time Critical Care Time: No
== END 2023-04-17 21:00 | disposition home or self-care (01) ==
PROVIDERS: Emergency Provider Emergency Medicine; PCP Physician Assistant
DX: M72.2 Plantar fascial fibromatosis (principal); M79.661 Pain in right lower leg; M25.561 Pain in right knee; F17.200 Nicotine dependence, unspecified, uncomplicated
CPT/HCPCS: 99282

== ENCOUNTER 2025-02-18 19:44 | Emergency (ER) | payer SELFPAY ==
--- OUTSIDE RECORDS SUMMARY | 2025-02-18 19:55 | XMS_ITS | Clinical Summary ---
Author Organization [facility] Address [address] [place] [address] Care Team Providers Care Window/Distribution Clerk Name Role Phone Sosa John APRN Primary Care Provider [phone] Allergies No known active allergies Medications buPROPion SR (Wellbutrin SR) 150 MG 12 hr tablet 06/23/2024 Active escitalopram (Lexapro) 20 MG tablet 06/23/2024 Active traZODone (Desyrel) 100 MG tablet Take 1 tablet by mouth nightly. Active omeprazole (PriLOSEC) [address] capsule Take 1 capsule by mouth daily. Do not crush or chew. Active Active Problems No known active problems Family History 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 Relation Name Comments Asthma Father COPD Father Esophageal cancer Mother Asthma Sister Relation Name Status Comments Father Mother Sister Social History Tobacco Use Types Packs/Day Years Used Date Smoking Tobacco: Never Passive Smoke Exposure: Never Smokeless Tobacco: Never Tobacco Cessation:Counseling Given: Not Answered Alcohol Use Standard Drinks/Week Comments Never 0 (1 standard drink = 0.6 oz pur e alcohol) PHQ-2 Answer Date Recorded Patient Health Questionnaire-2 Score 0 08/15/2024 PHQ-9 Answer Date Recorded Patient Health Questionnaire-9 Score 0 08/15/2024 Comments No Sex and Gender Information Value Date Recorded Sex Assigned at Not on file Legal Sex Female 8:41 PM EDT Gender Identity Not on file Sexual Orientation Not on file Last Filed Vital Signs Vital Sign Reading Time Taken Comments Blood Pressure 111/75 08/15/2024 8:18 AM EDT Pulse 80 08/15/2024 8:18 AM EDT Temperature 36.9 C (98.4 F) 08/15/2024 8:18 AM EDT Respiratory Rate 16 08/15/2024 8:18 AM EDT Oxygen Saturation 96% 08/15/2024 8:18 AM EDT RA Inhaled Oxygen Concentration - - Weight 101 kg (223 lb 8.7 oz) 08/15/2024 8:18 AM EDT Height 154.9 cm (5' 1 ) 08/15/2024 8:18 AM EDT Body Mass Index 42.24 08/15/2024 8:18 AM EDT Plan of Treatment Health Maintenance Due Date Last Done Comments [facility]-HIV Screening 1995 [facility]-Hepatitis C Screening 1995 [facility]-Infant/Child/Adol SDOH Screenings 1995 [facility]-IPV Vaccines (2 of 3 - 4-dose series) 06/26/1999 05/29/1999 [facility]-Varicella Vaccines (1 of 2 - 13+ 2-dose series) 2008 [facility]- SDOH Screenings 2013 [facility]-Adult SDOH Screenings 2013 [facility]-DTaP,Tdap,and Td Vaccine s (3 - Tdap) 2014 05/29/1999, 09/07/1996 [facility]-Hepatitis B Vaccines (1 of 3 - 19+ 3-dose series) 2014 [facility]-Pap Smear 2016 HPV Vaccines (1 - 3-dose SCD M series) 2022 [id number] Vaccine (1 - season) 2024 [facility]-Influenza Vaccine (#1) 2024 [facility]-Depression Screening 08/15/2025 025, 08/15/2024 [facility]-Zoster Vaccines (1 of 2) 2045 [facility]-HIB Vaccines Completed 09/07/1996 [facility]-Obesity Intervention Completed 08/15/2024 [facility]-Hepatitis A Vaccines Aged Out No longer eligible based on patient's age to complete this topic [facility]-Pneumococcal Vaccine: Pediatrics (0 to 5 Years) and At-Risk Patients (6 to 49 Years) Aged Out No longer eligible b ased on patient's age to complete this topic [facility]-Rotavirus Vaccines Aged Out No lo nger eligible based on patient's age to complete this topic Insurance [employer] MEDICAID [facility] Care Teams Window/Distribution Clerk Relationship Specialty Start Date End Date Sosa John APRN [address] [place] [id number] PCP - General 08/15/24
--- OUTSIDE RECORDS SUMMARY | 2025-02-18 19:55 | XMS_ITS | Data Portability ---
Author Organization [facility] Address [address] [place] [address] Assessment Encounter Date Assessment Date Assessment LastModified by Organization Details LastModified Time 06/23/2024 06/23/2024 Will refer to for evaluation for ADHD at follow up if symptoms not better controlled at follow up. Increase lexapro. Add wellbutrin. Recommended better food choices. Lifestyle changes. Routine exercise. Follow up in 1 month for recheck, sooner if needed. Not available 06/24/2024 12:44:37 07/27/2024 07/27/2024 Medications per plan below. Keep appt with bariatric surgery as planned. XR c-spine. Follow up in 3 months to recheck anxiety, sooner if needed Not available 08/01/2024 10:18:14 08/15/2024 08/15/2024 Small pea sized mass just below nipple with tenderness present, discharge for awhile, whitish. Did not breastfeed. Imaging per plan below. Reviewed labs, there were some abnormalities with LFT elevation, mild. Plan to recheck LFT's and full hepatitis panel at follow up. Chest XR as recommended by specialist. Follow up in 2-3 weeks to recheck labs, sooner if needed Not available 08/24/2024 15:13:56 10/24/2024 10/24/2024 Plan to repeat ultrasound of breast in February. Continue plan per bariatric surgery. WE discussed maintaining adequate hydration and strictly adhering to bariatric diet / plan. Follow up in a month to recheck, sooner if needed Not available 11/04/2024 18:49:57 12/09/2024 12/09/2024 Labs per plan below. Increase hydration and maintain protein intake. Advised patient of another alternative for MV until she can see bariatric provider. Follow up to be planned with results. Not available 12/19/2024 19:07:23 Plan of Treatment Reminders Order Date Submit Date Provider Last Modified By Organization Details Last Modified Time Details Appointments None recorded. Lab CBC w/ auto diff 2024 025 [facility]), [facility] [place], [address], 10:07:15 lipid panel, serum 2024 025 [facility]), [address] [place] [address], [address], 10:07:16 vitamin D, 25-hydroxy, total, serum 2024 025 [facility]), [address] [place] [address], [address], 10:07:17 TSH, ultra-sensi tive, serum 2024 025 [facility]), [facility] [place], [address], 10:07:18 cobalamin and folate panel, serum 2024 025 [facility]), [facility] [place], [address], 10:07:16 iron + TIBC + ferritin, serum 2024 025 [facility]), [address] [place] [address], [address], 5 10:07:15 thiamine, QN, blood 2024 025 [facility]), [address] [place] [address], [address], 5 10:07:17 magnesium, serum or plasma 2024 025 [facility]), [address] [place] [address], [address], 5 10:07:18 vitamin B6 + metabolites panel, serum or plasma 2024 025 [facility]), [facility] [place], [address], 5 10:07:17 Referral None recorded. Procedures None recorded. Surgeries None recorded. Imaging MAMMO, diagnostic, digital, unilateral - and ultrasound if needed [address] Centralized Scheduling, [address] , [place], [address], 5 10:33:06 XR, chest, 2 view 2024 025 [facility], [address] [place] [address], [id number], 5 16:39:27 US, axilla 2024 025 [facility] Central[facility] Scheduling, [address] [place], [address], 5 12:36:33 XR, cervical spine 2024 [email or web address] [place] [address], [address] [place] [address], [phone], 5 12:54:04 Medication Orders omeprazole 20 mg capsule,del ayed release 2024 025 [facility], [address] [place] [address], [address], 5 17:04:47 Wellbutrin SR 150 mg tablet, 12 hr sustained-r elease 2024 025 [facility], [address] [place] [address], [address], 14:48:28 omeprazole 20 mg capsule,del ayed release 2024 025 [facility], [address] [place] [address], [address], 16:49:17 Lexapro 20 mg tablet 2024 025 [facility], [address] [place] [address], [address], 5 16:49:16 Wellbutrin SR 150 mg tablet, 12 hr sustained-r elease [email or web address] [facility], [address] [place] [address], [address], 14:31:40 Lexapro 20 mg tablet 2024 025 [facility], [address] [place] [address], [address], 15:37:43 Patient TargetsNo targets recorded. Patient Instructions Encounter Date Encounter Id Patient Instructions Last Modified By Organization Details Last Modified Time 06/23/2024 [id number] When You Want to Lose Weight: Care Instructions Not available 06/23/2024 09:16:06 learning about anxiety disorders Not available 06/23/2024 09:16:06 learning about mood disorders Not available 06/23/2024 09:16:06 Reason for Referral None Reported. Results Created Date Observation Date Name Description Value Unit Range Abnormal Flag Note LastModifiedBy Organization Detail LastModifiedTime 05/26/19 25 05/27/2024 CBC WITH DIFFE RENTI AL/PL ATELE T WBC 6.4 x10e3 /uL 3.4-10 .8 normal Not Available [facility] ([facility]) [address] [facility], [place], [address], 05/27/2024 04:06:53 05/26/19 25 05/27/2024 CBC WITH DIFFE RENTI AL/PL ATELE T RBC 4.85 x10e6 /uL 3.77-5 .28 normal Not Available [facility] ([facility]) [address] [facility], [place], [address], 05/27/2024 04:06:53 05/26/19 25 05/27/2024 CBC WITH DIFFE RENTI AL/PL ATELE T hemoglobin 14.8 g/dL 11.1-1 5.9 normal Not Available [facility] ([facility]) [address] [facility], [place], [address], 05/27/2024 04:06:53 05/26/19 25 05/27/2024 CBC WITH DIFFE RENTI AL/PL ATELE T hematocrit 43.7 % 34.0-4 6.6 normal Not Available [facility] ([facility]) [address] [place], [address], 05/27/2024 04:06:53 05/26/19 25 05/27/2024 CBC WITH DIFFE RENTI AL/PL ATELE T MCV 90 fL 79-97 normal Not Available [facility] ([facility]) [address] [place], [address], 05/27/2024 04:06:53 05/26/1905/27/2024 CBC WITH DIFFE RENTI AL/PL ATELE T MCH 30.5 pg 26.6-3 3.0 normal Not Available [facility] ([facility]) [address] [place], [address], 05/27/2024 04:06:53 05/26/19 25 05/27/2024 CBC WITH DIFFE RENTI AL/PL ATELE T MCHC 33.9 g/dL 31.5-3 5.7 normal Not Available [facility] ([facility]) [address] [facility], [place], [address], 05/27/2024 04:06:53 05/26/19 25 05/27/2024 CBC WITH DIFFE RENTI AL/PL ATELE T RDW 12.0 % 11.7-1 5.4 Not Available [facility] ([facility]) [address] [facility], [place], [address], 05/27/2024 04:06:53 05/26/19 25 05/27/2024 CBC WITH DIFFE RENTI AL/PL ATELE T platelets 179 x10e3 /uL 150-45 0 normal Not Available [facility] ([facility]) [address] [facility], [place], [address], 05/27/2024 04:06:53 05/26/19 25 05/27/2024 CBC WITH DIFFE RENTI AL/PL ATELE T neutrophils 50 % not estab. normal Not Available [facility] ([facility]) [address] [facility], [place], [address], 05/27/2024 04:06:53 05/26/19 25 05/27/2024 CBC WITH DIFFE RENTI AL/PL ATELE T lymphs 43 % not estab. normal Not Available [facility] ([facility]) [address] [facility], [place], [address], 05/27/2024 04:06:53 05/26/19 25 05/27/2024 CBC WITH DIFFE RENTI AL/PL ATELE T monocytes 5 % not estab. normal Not Available [facility] ([facility]) [address] [facility], [place], [address], 05/27/2024 04:06:53 05/26/19 25 05/27/2024 CBC WITH DIFFE RENTI AL/PL ATELE T eos 2 % not estab. normal Not Available [facility] ([facility]) [address] [place], [address], 05/27/2024 04:06:53 05/26/19 25 05/27/2024 CBC WITH DIFFE RENTI AL/PL ATELE T basos 0 % not estab. 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 0 normal Not Available [facility] ([facility]) [address] [place], [address], 05/27/2024 04:06:53 05/26/19 25 05/27/2024 CBC WITH DIFFE RENTI AL/PL ATELE T lymphs (absolute) 2.8 x10e3 /uL 0.7-3. 1 normal Not Available [facility] ([facility]) [address] [place], [address], 05/27/2024 04:06:53 05/26/19 25 05/27/2024 CBC WITH DIFFE RENTI AL/PL ATELE T monocytes(ab solute) 0.3 x10e3 /uL 0.1-0. 9 normal Not Available [facility] ([facility]) [address] [place], [address], 05/27/2024 04:06:53 05/26/19 25 05/27/2024 CBC WITH DIFFE RENTI AL/PL ATELE T eos (absolute) 0.1 x10e3 /uL 0.0-0. 4 normal Not Available [facility] ([facility]) [address] [place], [address], 05/27/2024 04:06:53 05/26/19 25 05/27/2024 CBC WITH DIFFE RENTI AL/PL ATELE T baso (absolute) 0.0 x10e3 /uL 0.0-0. 2 normal Not Available [facility] ([facility]) [address] [facility], [place], [address], 05/27/2024 04:06:53 05/26/19 25 05/27/2024 CBC WITH DIFFE RENTI AL/PL ATELE T immature granulocytes 0 % not estab. Not Available [facility] ([facility]) [address] [facility], [place], [address], 05/27/2024 04:06:53 05/26/19 25 05/27/2024 CBC WITH DIFFE RENTI AL/PL ATELE T immature grans (abs) 0.0 x10e3 /uL 0.0-0. 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 METAB OLIC PANEL (14) glucose 84 mg/dL 70-99 normal Not Available [facility] ([facility]) [address] [facility], [place], [address], 05/27/2024 04:06:53 05/26/19 25 05/27/2024 COMP. METAB OLIC PANEL (14) BUN 11 mg/dL 6-20 normal Not Available [facility] ([facility]) [address] [facility], [place], [address], 05/27/2024 04:06:53 05/26/19 25 05/27/2024 COMP. METAB OLIC PANEL (14) creatinine 0.86 mg/dL 0.57-1 .00 normal Not Available [facility] ([facility]) [address] [facility], [place], [address], 05/27/2024 04:06:53 05/26/19 25 05/27/2024 COMP. METAB OLIC PANEL (14) eGFR 94 mL/mi n/1.7 3 >59 normal Not Available [facility] ([facility]) [address] [place], [address], 05/27/2024 04:06:53 05/26/19 25 05/27/2024 COMP. METAB OLIC PANEL (14) BUN/creatini ne ratio 13 9-23 normal Not Available [facility] ([facility]) [address] [facility], [place], [address], 05/27/2024 04:06:53 05/26/19 25 05/27/2024 COMP. METAB OLIC PANEL (14) sodium 140 mmol/ L 134-14 4 normal Not Available [facility] ([facility]) [address] [place], [address], 05/27/2024 04:06:53 05/26/19 25 05/27/2024 COMP. METAB OLIC PANEL (14) potassium 4.2 mmol/ L 3.5-5. 2 normal Not Available [facility] ([facility]) [address] [facility], [place], [address], 05/27/2024 04:06:53 05/26/19 25 05/27/2024 COMP. METAB OLIC PANEL (14) chloride 102 mmol/ L 96-106 normal Not Available [facility] ([facility]) [address], [address], 05/27/2024 04:06:53 05/26/19 25 05/27/2024 COMP. METAB OLIC PANEL (14) carbon dioxide, total 24 mmol/ L 20-29 normal Not Available [facility] ([facility]) [address] [facility] [place], [address], 05/27/2024 04:06:53 05/26/19 25 05/27/2024 COMP. METAB OLIC PANEL (14) calcium 9.8 mg/dL 8.7-10 .2 normal Not Available [facility] ([facility]) [address] [place], [address], 05/27/2024 04:06:53 05/26/19 25 05/27/2024 COMP. METAB OLIC PANEL (14) protein, total 7.7 g/dL 6.0-8. 5 normal Not Available [facility] ([facility]) [address] [place], [address], 05/27/2024 04:06:53 05/26/19 25 05/27/2024 COMP. METAB OLIC PANEL (14) albumin 4.8 g/dL 4.0-5. 0 normal Not Available [facility] ([facility]) [address] [place], [address], 05/27/2024 04:06:53 05/26/19 25 05/27/2024 COMP. METAB OLIC PANEL (14) globulin, total 2.9 g/dL 1.5-4. 5 Not Available [facility] ([facility]) [address] [place], [address], 05/27/2024 04:06:53 05/26/19 25 05/27/2024 COMP. METAB OLIC PANEL (14) bilirubin, total 0.7 mg/dL 0.0-1. 2 normal Not Available [facility] ([facility]) [address] [facility] [place], [address], 05/27/2024 04:06:53 05/26/19 25 05/27/2024 COMP. METAB OLIC PANEL (14) alkaline phosphatase 80 IU/L 44-121 normal Not Available [facility] ([facility]) [address] [facility] [place], [address], 05/27/2024 04:06:53 05/26/19 25 05/27/2024 COMP. METAB OLIC PANEL (14) AST (SGOT) 25 IU/L 0-40 normal Not Available [facility] ([facility]) [address] [place], [address], 05/27/2024 04:06:53 05/26/19 25 05/27/2024 COMP. METAB OLIC PANEL (14) ALT (SGPT) 32 IU/L 0-32 normal Not Available [facility] ([facility]) [address] [place], [address], 05/27/2024 04:06:53 05/26/19 25 05/27/2024 LIPID PANEL cholesterol, total 231 mg/dL 100-19 9 above high normal Not Available [facility] ([facility]) [address] [place], [address], 05/27/2024 04:06:54 05/26/19 25 05/27/2024 LIPID PANEL triglyceride s 114 mg/dL 0-149 normal Not Available [facility] ([facility]) [address] [facility] [place], [address], 05/27/2024 04:06:54 05/26/19 25 05/27/2024 LIPID PANEL HDL cholesterol 60 mg/dL >39 normal Not Available [facility] ([facility]) [address] [place], [address], 05/27/2024 04:06:54 05/26/19 25 05/27/2024 LIPID PANEL VLDL cholesterol regine 20 mg/dL 5-40 Not Available [facility] ([facility]) [address] [place], [address], 05/27/2024 04:06:54 05/26/19 25 05/27/2024 LIPID PANEL LDL chol calc ([facility]) 151 mg/dL 0-99 above high normal Not Available [facility] ([facility]) [address] [place], [address], 05/27/2024 04:06:54 05/26/1905/27/2024 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 6 normal Predi abete s: 5.7 - 6.4 Diabe geoff: >6.4 Glyce joan contr ol for adult s with diabe geoff: <7.0 Not Available [facility] ([facility]) [address] [facility], [place], [address], 05/27/2024 04:06:54 05/26/1905/27/2024 TSH RFX ON ABNOR MAL TO FREE T4 TSH 0.673 uIU/m L 0.450- 4.500 normal Not Available [facility] ([facility]) [address] [place], [address], 05/27/2024 04:06:55 05/26/1905/31/2024 TOXAS SURE FLEX 19, UR summary report FINAL ===== ===== ===== ===== ===== ===== ===== ===== ===== ===== ===== ===== ===== === ToxAs sure Flex 19, Ur ===== ===== ===== ===== ===== ===== ===== ===== ===== ===== ===== ===== ===== === Test Resul t Flag Units NO DRUGS DETEC DAMARIS. ===== ===== ===== ===== ===== ===== ===== ===== ===== ===== ===== ===== ===== === Test Resul t Flag Units Ref Range Creat inine 299 mg/dL >=20 ===== ===== ===== ===== ===== ===== ===== ===== ===== ===== ===== ===== ===== === Decla red Medic ation s: Medic ation list was not provi ded. ===== ===== ===== ===== ===== ===== ===== ===== ===== ===== ===== ===== ===== === For clini regine consu ltati on, pleas e call . ===== ===== ===== ===== ===== ===== ===== ===== ===== ===== ===== ===== ===== === Not Available [facility] ([facility]) [address], [place], [address], 05/31/2024 20:07:42 05/26/19 25 05/31/2024 TOXAS SURE FLEX 19, UR pdf . Not Available [facility] ([facility]) [address] [place], [address], 05/31/2024 20:07:42 05/26/19 25 05/31/2024 TOXAS SURE FLEX 19, UR creatinine 299 mg/dL REFER ENCE RANGE : Ref Range >=20 Not Available [facility] ([facility]) [address] [place], [address], 05/31/2024 20:07:42 05/26/19 25 05/31/2024 TOXAS SURE FLEX 19, UR amphetamines ia Negati ve NG/mL cutoff :300 Not Available [facility] ([facility]) [address] [place], [address], 05/31/2024 20:07:42 05/26/19 25 05/31/2024 TOXAS SURE FLEX 19, UR benzodiazepi moe Negati ve Not Available [facility] ([facility]) [address] [place], [address], 05/31/2024 20:07:42 05/26/19 25 05/31/2024 TOXAS SURE FLEX 19, UR diazepam Not Detect ed NG/mg _crea t Not Available [facility] ([facility]) [address] [place], [address], 05/31/2024 20:07:42 05/26/19 25 05/31/2024 TOXAS SURE FLEX 19, UR desmethyldia zepam Not Detect ed NG/mg _crea t Not Available [facility] ([facility]) [address] [place], [address], 05/31/2024 20:07:42 05/26/19 25 05/31/2024 TOXAS SURE FLEX 19, UR oxazepam Not Detect ed NG/mg _crea t Not Available [facility] ([facility]) [address] [place], [address], 05/31/2024 20:07:42 05/26/19 25 05/31/2024 TOXAS SURE FLEX 19, UR temazepam Not Detect ed NG/mg _crea t Expec damaris metab olism of benzo diaze pine class drugs : Paren t Drug Detec damaris Metab olite s ----- ----- - ----- ----- ----- ----- Diaze josse: Desme thyld iazep am, Temaz epam, Oxaze josse Chlor diaze poxid e: Desme thyld iazep am, Oxaze josse Clora zepat e: Desme thyld iazep am, Oxaze josse Halaz epam: Desme thyld iazep am, Oxaze josse Temaz epam: Oxaze josse Oxaze josse: None Not Available [facility] ([facility]) [address] [place], [address], 05/31/2024 20:07:42 05/26/19 25 05/31/2024 TOXAS SURE FLEX 19, UR alprazolam Not Detect ed NG/mg _crea t Not Available [facility] ([facility]) [address] [place], [address], 05/31/2024 20:07:42 05/26/19 25 05/31/2024 TOXAS SURE FLEX 19, UR alpha-hydrox yalprazolam Not Detect ed NG/mg _crea t Not Available [facility] ([facility]) [address] [place], [address], 05/31/2024 20:07:42 05/26/19 25 05/31/2024 TOXAS SURE FLEX 19, UR desalkylflur azepam Not Detect ed NG/mg _crea t Not Available [facility] ([facility]) [address] [place], [address], 05/31/2024 20:07:42 05/26/19 25 05/31/2024 TOXAS SURE FLEX 19, UR lorazepam Not Detect ed NG/mg _crea t Not Available [facility] ([facility]) [address] [place], [address], 05/31/2024 20:07:42 05/26/19 25 05/31/2024 TOXAS SURE FLEX 19, UR alpha-hydrox ytriazolam Not Detect ed NG/mg _crea t Not Available [facility] ([facility]) [address] [place], [address], 05/31/2024 20:07:42 05/26/19 25 05/31/2024 TOXAS SURE FLEX 19, UR clonazepam Not Detect ed NG/mg _crea t Not Available [facility] ([facility]) [address] [place], [address], 05/31/2024 20:07:42 05/26/19 25 05/31/2024 TOXAS SURE FLEX 19, UR 7-aminoclona zepam Not Detect ed NG/mg _crea t Not Available [facility] ([facility]) [address] [place], [address], 05/31/2024 20:07:42 05/26/19 25 05/31/2024 TOXAS SURE FLEX 19, UR midazolam Not Detect ed NG/mg _crea t Not Available [facility] ([facility]) [address] [place], [address], 05/31/2024 20:07:42 05/26/19 25 05/31/2024 TOXAS SURE FLEX 19, UR alpha-hydrox ymidazolam Not Detect ed NG/mg _crea t Not Available [facility] ([facility]) [address] [place], [address], 05/31/2024 20:07:42 05/26/19 25 05/31/2024 TOXAS SURE FLEX 19, UR flunitrazepa m Not Detect ed NG/mg _crea t Not Available [facility] ([facility]) [address] [place], [address], 05/31/2024 20:07:42 05/26/19 25 05/31/2024 TOXAS SURE FLEX 19, UR desmethylflu nitrazepam Not Detect ed NG/mg _crea t Not Available [facility] ([facility]) [address] [place], [address], 05/31/2024 20:07:42 05/26/19 25 05/31/2024 TOXAS SURE FLEX 19, UR cocaine metabolite ia Negati ve NG/mL cutoff :150 Not Available [facility] ([facility]) [address] [place], [address], 05/31/2024 20:07:42 05/26/19 25 05/31/2024 TOXAS SURE FLEX 19, UR ethanol biomarkers ia Negati ve NG/mL cutoff :500 Not Available [facility] ([facility]) [address] [place], [address], 05/31/2024 20:07:42 05/26/19 25 05/31/2024 TOXAS SURE FLEX 19, UR cannabinoids ia Negati ve NG/mL cutoff :20 Not Available [facility] ([facility]) [address] [place], [address], 05/31/2024 20:07:42 05/26/19 25 05/31/2024 TOXAS SURE FLEX 19, UR 6-acetylmorp rosemary ia Negati ve NG/mL cutoff :10 Not Available [facility] ([facility]) [address] [place], [address], 05/31/2024 20:07:42 05/26/19 25 05/31/2024 TOXAS SURE FLEX 19, UR opiate class ia Negati ve NG/mL cutoff :100 Not Available [facility] ([facility]) [address] [place], [address], 05/31/2024 20:07:42 05/26/19 25 05/31/2024 TOXAS SURE FLEX 19, UR oxycodone class ia Negati ve NG/mL cutoff :100 Not Available [facility] ([facility]) [address] [place] [address], [address], 05/31/2024 20:07:42 05/26/19 25 05/31/2024 TOXAS SURE FLEX 19, UR methadone ia Negati ve NG/mL cutoff :100 Not Available [facility] ([facility]) [address] [place], [address], 05/31/2024 20:07:42 05/26/19 25 05/31/2024 TOXAS SURE FLEX 19, UR methadone mtb ia Negati ve NG/mL cutoff :100 Not Available [facility] ([facility]) [address] [place], [address], 05/31/2024 20:07:42 05/26/19 25 05/31/2024 TOXAS SURE FLEX 19, UR buprenorphin e ia Negati ve NG/mL cutoff :5.0 Not Available [facility] ([facility]) [address] [place], [address], 05/31/2024 20:07:42 05/26/19 25 05/31/2024 TOXAS SURE FLEX 19, UR fentanyl ia Negati ve NG/mL cutoff :2.0 Not Available [facility] ([facility]) [address] [place] [address], [address], 05/31/2024 20:07:42 05/26/19 25 05/31/2024 TOXAS SURE FLEX 19, UR tapentadol ia Negati ve NG/mL cutoff :200 Not Available [facility] ([facility]) [address] [place] [address], [address], 05/31/2024 20:07:42 05/26/19 25 05/31/2024 TOXAS SURE FLEX 19, UR propoxyphene ia Negati ve NG/mL cutoff :300 Not Available [facility] ([facility]) [address] [place], [address], 05/31/2024 20:07:42 05/26/19 25 05/31/2024 TOXAS SURE FLEX 19, UR tramadol ia Negati ve NG/mL cutoff :200 Not Available [facility] ([facility]) [address] [place], [address], 05/31/2024 20:07:42 05/26/19 25 05/31/2024 TOXAS SURE FLEX 19, UR methylphenid ate ia Negati ve NG/mL cutoff :100 Not Available [facility] ([facility]) [address] [place], [address], 05/31/2024 20:07:42 05/26/19 25 05/31/2024 TOXAS SURE FLEX 19, UR barbiturates ia Negati ve NG/mL cutoff :200 Not Available [facility] ([facility]) [address] [place], [address], 05/31/2024 20:07:42 05/26/19 25 05/31/2024 TOXAS SURE FLEX 19, UR phencyclidin e ia Negati ve NG/mL cutoff :25 Not Available [facility] ([facility]) [address] [place], [address], 05/31/2024 20:07:42 05/26/19 25 05/31/2024 TOXAS SURE FLEX 19, UR gabapentin ia Negati ve ug/mL cutoff :1.0 Not Available [facility] ([facility]) [address] [place], [address], 05/31/2024 20:07:42 05/26/19 25 05/31/2024 TOXAS SURE FLEX 19, UR anticonvulsa nts Negati ve Not Available [facility] ([facility]) [address] [place], [address], 05/31/2024 20:07:42 05/26/19 25 05/31/2024 TOXAS SURE FLEX 19, UR pregabalin Not Detect ed Not Available [facility] ([facility]) [address] [facility], [place], [address], 05/31/2024 20:07:42 05/26/19 25 05/31/2024 TOXAS SURE FLEX 19, UR carisoprodol ia Negati ve NG/mL cutoff :100 Not Available [facility] ([facility]) [address] [facility], [place], [address], 05/31/2024 20:07:42 05/26/19 25 2024 pregn amy test, urine HCG negati ve Not Available [address], [address], 2024 08:24:56 12/10/19 25 12/10/2024 FE+TI BC+FE R iron bind.cap.(TI BC) 297 ug/dL 250-45 0 normal Not Available [facility] ([facility]) [address] [facility], [place], [address], 12/18/2024 10:07:15 12/10/19 25 12/10/2024 FE+TI BC+FE R UIBC 228 ug/dL 131-42 5 normal Not Available [facility] ([facility]) [address] [place], [address], 12/18/2024 10:07:15 12/10/19 25 12/10/2024 FE+TI BC+FE R iron 69 ug/dL 27-159 normal Not Available [facility] ([facility]) [address] [place], [address], 12/18/2024 10:07:15 12/10/19 25 12/10/2024 FE+TI BC+FE R iron saturation 23 % 15-55 normal Not Available [facility] ([facility]) [address] [facility], [place], [address], 12/18/2024 10:07:15 12/10/19 25 12/10/2024 FE+TI BC+FE R ferritin 175 NG/mL 15-150 above high normal Not Available [facility] ([facility]) [address] [facility], [place], [address], 12/18/2024 10:07:15 12/10/19 25 12/10/2024 CBC WITH DIFFE RENTI AL/PL ATELE T WBC 7.7 x10e3 /uL 3.4-10 .8 normal Not Available [facility] ([facility]) [address] [facility], [place], [address], 12/18/2024 10:07:15 12/10/19 25 12/10/2024 CBC WITH DIFFE RENTI AL/PL ATELE T RBC 4.51 x10e6 /uL 3.77-5 .28 normal Not Available [facility] ([facility]) [address] [facility], [place], [address], 12/18/2024 10:07:15 12/10/19 25 12/10/2024 CBC WITH DIFFE RENTI AL/PL ATELE T hemoglobin 13.5 g/dL 11.1-1 5.9 normal Not Available [facility] ([facility]) [address] [place], [address], 12/18/2024 10:07:15 12/10/19 25 12/10/2024 CBC WITH DIFFE RENTI AL/PL ATELE T hematocrit 41.6 % 34.0-4 6.6 normal Not Available [facility] ([facility]) [address] [place], [address], 12/18/2024 10:07:15 12/10/19 25 12/10/2024 CBC WITH DIFFE RENTI AL/PL ATELE T MCV 92 fL 79-97 normal Not Available [facility] ([facility]) [address] [facility], [place], [address], 12/18/2024 10:07:15 12/10/19 25 12/10/2024 CBC WITH DIFFE RENTI AL/PL ATELE T MCH 29.9 pg 26.6-3 3.0 normal Not Available [facility] ([facility]) [address] [facility], [place], [address], 12/18/2024 10:07:15 12/10/19 25 12/10/2024 CBC WITH DIFFE RENTI AL/PL ATELE T MCHC 32.5 g/dL 31.5-3 5.7 normal Not Available [facility] ([facility]) [address] [place], [address], 12/18/2024 10:07:15 12/10/19 25 12/10/2024 CBC WITH DIFFE RENTI AL/PL ATELE T RDW 12.6 % 11.7-1 5.4 Not Available [facility] ([facility]) [address] [place], [address], 12/18/2024 10:07:15 12/10/19 25 12/10/2024 CBC WITH DIFFE RENTI AL/PL ATELE T platelets 176 x10e3 /uL 150-45 0 normal Not Available [facility] ([facility]) [address] [place], [address], 12/18/2024 10:07:15 12/10/19 25 12/10/2024 CBC WITH DIFFE RENTI AL/PL ATELE T neutrophils 56 % not estab. normal Not Available [facility] ([facility]) [address] [place], [address], 12/18/2024 10:07:15 12/10/19 25 12/10/2024 CBC WITH DIFFE RENTI AL/PL ATELE T lymphs 37 % not estab. normal Not Available [facility] ([facility]) [address] [place], [address], 12/18/2024 10:07:15 12/10/19 25 12/10/2024 CBC WITH DIFFE RENTI AL/PL ATELE T monocytes 6 % not estab. normal Not Available [facility] ([facility]) [address] [facility], [place], [address], 12/18/2024 10:07:15 12/10/19 25 12/10/2024 CBC WITH DIFFE RENTI AL/PL ATELE T eos 1 % not estab. normal Not Available [facility] ([facility]) [address] [place], [address], 12/18/2024 10:07:15 12/10/19 25 12/10/2024 CBC WITH DIFFE RENTI AL/PL ATELE T basos 0 % not estab. normal Not Available [facility] ([facility]) [address] [place], [address], 12/18/2024 10:07:15 12/10/19 25 12/10/2024 CBC WITH DIFFE RENTI AL/PL ATELE T immature cells BUTTON MACHINE OPERATOR Not Available [facility] ([facility]) [address] [place], [address], 12/18/2024 10:07:15 12/10/19 25 12/10/2024 CBC WITH DIFFE RENTI AL/PL ATELE T neutrophils (absolute) 4.2 x10e3 /uL 1.4-7. 0 normal Not Available [facility] ([facility]) [address] [place], [address], 12/18/2024 10:07:15 12/10/19 25 12/10/2024 CBC WITH DIFFE RENTI AL/PL ATELE T lymphs (absolute) 2.9 x10e3 /uL 0.7-3. 1 normal Not Available [facility] ([facility]) [address] [place], [address], 12/18/2024 10:07:15 12/10/19 25 12/10/2024 CBC WITH DIFFE RENTI AL/PL ATELE T monocytes(ab solute) 0.5 x10e3 /uL 0.1-0. 9 normal Not Available [facility] ([facility]) [address] [facility], [place], [address], 12/18/2024 10:07:15 12/10/19 25 12/10/2024 CBC WITH DIFFE RENTI AL/PL ATELE T eos (absolute) 0.1 x10e3 /uL 0.0-0. 4 normal Not Available [facility] ([facility]) [address] [place], [address], 12/18/2024 10:07:15 12/10/19 25 12/10/2024 CBC WITH DIFFE RENTI AL/PL ATELE T baso (absolute) 0.0 x10e3 /uL 0.0-0. 2 normal Not Available [facility] ([facility]) [address] [facility], [place], [address], 12/18/2024 10:07:15 12/10/19 25 12/10/2024 CBC WITH DIFFE RENTI AL/PL ATELE T immature granulocytes 0 % not estab. Not Available [facility] ([facility]) [address] [place], [address], 12/18/2024 10:07:15 12/10/19 25 12/10/2024 CBC WITH DIFFE RENTI AL/PL ATELE T immature grans (abs) 0.0 x10e3 /uL 0.0-0. 1 Not Available [facility] ([facility]) [address] [place], [address], 12/18/2024 10:07:15 12/10/19 25 12/10/2024 CBC WITH DIFFE RENTI AL/PL ATELE T NRBC BUTTON MACHINE OPERATOR Not Available [facility] ([facility]) [address] [place], [address], 12/18/2024 10:07:15 12/10/19 25 12/10/2024 CBC WITH DIFFE RENTI AL/PL ATELE T hematology comments: BUTTON MACHINE OPERATOR Not Available [facility] ([facility]) [address] [facility], [place], [address], 12/18/2024 10:07:15 12/10/19 25 12/10/2024 LIPID PANEL cholesterol, total 194 mg/dL 100-19 9 normal Not Available [facility] ([facility]) [address] [place], [address], 12/18/2024 10:07:16 12/10/19 25 12/10/2024 LIPID PANEL triglyceride s 171 mg/dL 0-149 above high normal Not Available [facility] ([facility]) [address] [place], [address], 12/18/2024 10:07:16 12/10/19 25 12/10/2024 LIPID PANEL HDL cholesterol 44 mg/dL >39 normal Not Available [facility] ([facility]) [address] [place], [address], 12/18/2024 10:07:16 12/10/19 25 12/10/2024 LIPID PANEL VLDL cholesterol regine 30 mg/dL 5-40 Not Available [facility] ([facility]) [address] [place], [address], 12/18/2024 10:07:16 12/10/19 25 12/10/2024 LIPID PANEL LDL chol calc ([facility]) 120 mg/dL 0-99 above high normal Not Available [facility] ([facility]) [address] [place], [address], 12/18/2024 10:07:16 12/10/19 25 12/10/2024 LIPID PANEL LDL calc comment: BUTTON MACHINE OPERATOR Not Available [facility] ([facility]) [address] [facility], [place], [address], 12/18/2024 10:07:16 12/10/19 25 12/10/2024 VITAM IN B12 AND FOLAT E vitamin B12 616 pg/mL 232-12 45 normal Not Available [facility] ([facility]) [address] [facility], [place], [address], 12/18/2024 10:07:16 12/10/19 25 12/10/2024 VITAM IN B12 AND FOLAT E folate (folic acid), serum 8.8 NG/mL >3.0 normal A serum folat e leonid ntrat ion of less than 3.1 ng/mL is consi dered to repre sent clini regine defic iency . Not Available [facility] ([facility]) [address] [facility], [place], [address], 12/18/2024 10:07:16 12/10/19 25 12/13/2024 VITAM IN B6, PLASM A vitamin B6 7.5 ug/L 3.4-65 .2 normal Defic iency : <3.4 Divya nal: 3.4 - 5.1 Adequ ate: >5.1 Not Available [facility] ([facility]) [address] [facility], [place], [address], 12/18/2024 10:07:17 12/10/19 25 12/10/2024 VITAM IN D, 25-HY DROXY vitamin D, 25-hydroxy 46.5 NG/mL 30.0-1 00.0 Vitam in D defic iency has been defin ed by the Insti tute of Medic ine and an Endoc rine Socie ty pract ice guide line as a level of serum 25-OH vitam in D less than 20 ng/mL (1,2) . The Endoc rine Socie ty went on to furth er defin e vitam in D insuf ficie ncy as a level betwe en 21 and 29 ng/mL (2). 1. IOM (Inst itute of Medic ine). 2010. Dieta ry refer ence intak es for calci um and D. Mony oconnor [place]: The [facility] . 2. Ella rodriguez MF, Filiberto joaquin [place], Sonido off-F shannan i MURRAY, et al. Evalu ation , treat ment, and preve ntion of vitam in D defic iency : an Endoc rine Socie ty clini regine pract ice guide line. JCEM. 2010; 96(7) :1911 -30. Not Available [facility] ([facility]) [address] [facility], [place], [address], 12/18/2024 10:07:17 12/10/19 25 12/18/2024 VITAM IN B1 (THIA MINE) , BLOOD vit. B1, whole blood 142.2 nmol/ L 66.5-2 00.0 Not Available [facility] ([facility]) [address] [place], [address], 12/18/2024 10:07:17 12/10/19 25 12/10/2024 TSH RFX ON ABNOR MAL TO FREE T4 TSH 0.746 uIU/m L 0.450- 4.500 normal Not Available [facility] ([facility]) [address] [facility], [place], [address], 12/18/2024 10:07:18 12/10/19 25 12/10/2024 MAGNE SIUM magnesium 2.1 mg/dL 1.6-2. 3 normal Not Available [facility] ([facility]) [address] [place], [address], 12/18/2024 10:07:18 07/29/19 25 XR, cervi regine spine No observ ation record ed. [address], [place], [address], 07/29/2024 16:05:54 08/18/19 25 XR, chest , 2 view No observ ation record ed. [email or web address] [address], [place], [address], 08/24/2024 16:10:11 09/07/19 25 09/06/2024 eleazar PHAN No observ ation record ed. [email or web address] (Radiology) [address] , [place], [address], 09/09/2024 15:27:46 Result Notes None recorded. Problems Name Problem SNOMED Code Status Onset Date Resolution Date Notes Provider Name and Address Organization Details Recorded Time Acute pharyngi tis 535729461 Completed 201608/04/2016 Problem Code: J02.8; Problem Code Type: ICD-10; Not Available [facility] 2 22:25:25 Acute laryngop haryngit is 47799501 Completed 201606/19/2016 Problem Code: J06.0; Problem Code Type: ICD-10; Not Available [facility] 2 22:25:26 Influenz a [id number] Completed 201608/04/2016 Problem Code: J10.1; Problem Code Type: ICD-10; Not Available [facility] 2 22:25:26 Influenz a with respirat ory manifest ation other than pneumoni a Completed 201608/04/2016 Problem Code: 487.1; Problem Code Type: ICD-9; Not Available [facility] 2 22:25:26 Acute upper respirat ory infectio n of multiple sites Completed 201606/19/2016 Problem Code: 465.8; Problem Code Type: ICD-9; Not Available [facility] 2 22:25:26 Fatigue 12327670 Active 2023 Sosa John NP [address] [place], [address] , [employer] 4 17:32:23 Contact dermatit is 30147492 Completed 202310/12/2023 Sosa John NP [address] [place], [address] , [employer] 4 17:32:21 Obesity 702875221 Active 2023 Sosa John NP [address] [place] [address], [address] , [place] [employer] 4 17:32:27 Anxiety 71080283 Active 2023 Sosa John NP [address] [place] [address], [address] , [employer] 4 17:32:16 Acute sinusiti s 46698453 Completed 202305/26/2024 Sosa John NP [address] [place] [address], [address] , [employer] 5 08:38:34 Depressi ve disorder 06167088 Active 2023 Sosa John NP [address] [place] [address], [address] , [employer] 5 08:40:06 Anxiety disorder 968429318 Active 2023 Sosa John NP [address] [place] [address], [address] , [employer] 5 08:40:09 Neck pain 10924433 Active 2024 Sosa John NP [address] [place] [address], [address] , [employer] 5 09:16:48 Gastroes ophageal reflux disease without esophagi tis 107725997 Active 2024 Sosa John NP [address] [place] [address], [address] , [employer] 5 09:18:30 Pain of right breast 9332717179 Active 2024 Sosa John NP [address] [place] [address], [address] , [employer] 5 17:22:23 Discharg e from right nipple 04265585311 576977 Active 2024 Sosa John NP [address] [place], [address] , [employer] 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 17:26:12 Lump of subareol ar area of right breast 11335117537 559755 Active 2024 Sosa John NP [address] [place], [address] , [employer] 17:27:51 Dizzines s 493686828 Active 2024 Sosa John NP [address] [place] [address], [address] , [employer] 14:22:12 Problem Notes None recorded. Procedures Surgical History Date Name Laterality Status Provider Name and Address Organization Details Recorded Time 02/21/20 Date of Last Pap Smear completed [employer] 08/20/2023 10:39:53 Appendectomy completed [employer] 08/20/2023 10:39:54 Gallbladder Surgery completed [facility] 08/20/2023 10:39:54 Imaging Results None recorded. Procedure Notes None recorded. Medical Equipment None Reported. Allergies No known drug allergies Medications Name Sig Start Date Stop Date Status Note LastModified by Organization Details LastModified Time Mirena 21 mcg/24 hr (up to 8 years) 52 mg intrauteri ne device Take by intraute rine route. active Not Available Not Available No t Available bupropion HCl SR 150 mg tablet,12 hr sustained- release TAKE ONE TABLET BY MOUTH TWICE DAILY 10/24 completed Not Available Not Available Not Available promethazi ne-DM 6.25 mg-15 mg/5 mL oral syrup Take 1 teaspoon by mouth q 4 to 6 hr 06/05 completed Not Available Not Available Not Available Effexor XR 75 mg capsule,ex tended release Take 1 capsule every day by oral route. 05/26 completed Not Available Not Available Not Available trazodone 50 mg tablet TAKE ONE TABLET BY MOUTH EVERY DAY AT bedtime NEEDED FOR SLEEP active Not Available Not Available No t Available naltrexone 50 mg tablet 08/19 completed Not Available Not Available Not Available Effexor XR 37.5 mg capsule,ex tended release Take 1 capsule every day by oral route. 05/26 completed Not Available Not Available Not Available phentermin e 37.5 mg tablet TAKE ONE TABLET BY MOUTH EVERY DAY 06/23 completed Not Available Not Available Not Available Tamiflu 75 mg capsule Take 1 capsule( s) by mouth bid for 5 days 06/05 completed Not Available Not Available Not Available famotidine 20 mg tablet 08/19 completed Not Available Not Available Not Available gabapentin 300 mg capsule TAKE ONE CAPSULE BY MOUTH THREE TIMES DAILY FOR 7 DAYS 10/24 completed does not take this Not Available Not Available Not Available omeprazole 20 mg capsule,de layed release TAKE 1 CAPSULE BY MOUTH EVERY DAY active Not Available Not Available No t Available methylpred nisolone 4 mg tablets in a dose pack Take by mouth as directed for 6 days 10/11 completed Not Available Not Available Not Available celecoxib 100 mg capsule TAKE ONE CAPSULE BY MOUTH TWICE DAILY FOR 7 DAYS 10/24 completed not taking this Not Available Not Available Not Available amoxicilli n 875 mg-potassi um clavulanat e 125 mg tablet Take 1 tablet every 12 hours by oral route. 10/18 completed Not Available Not Available Not Available escitalopr am 10 mg tablet TAKE ONE TABLET BY MOUTH EVERY DAY 07/27 completed Not Available Not Available Not Available escitalopr am 20 mg tablet TAKE 1 TABLET BY MOUTH EVERY DAY active Not Available Not Available No t Available bupropion HCl XL 150 mg 24 hr tablet, extended release 08/19 completed Not Available Not Available Not Available BD Ultra-Fine Mini Pen Needle 31 gauge x 06/26 completed Not Available Not Available Not Available cholecalci ferol (vitamin D3) 1,250 mcg (50,000 unit) capsule TAKE ONE CAPSULE BY MOUTH every week 07/14 /2025 completed Not Available Not Available Not Available OneTouch Verio test strips 08/19 completed Not Available Not Available Not Available Jovany Sawyer U-100 Insulin 100 unit/mL (3 mL) [facility] 08/19 completed Not Available Not Available Not Available Vitals Date Recorded Body height Body mass index (BMI) Body weight Heart rate Oxygen saturation Oxygen saturation in Arterial blood by Pulse oximetry Systolic And Diastolic Provider Name and Address Organization Details Last Updated DateTime 5 154.94 cm 37.5 kg/m2 56273.3 9 g 101 /min 99 % 99 % 123/70 mm[Hg] [employer] 5 08:39:55 Date Recorded Body height Body mass index (BMI) Body weight Heart rate Oxygen saturation Oxygen saturation in Arterial blood by Pulse oximetry Systolic And Diastolic Provider Name and Address Organization Details Last Updated DateTime 5 154.94 cm 40.1 kg/m2 69895.2 8 g 97 /min 99 % 99 % 119/79 mm[Hg] [employer] 5 08:45:21 Date Recorded Body height Body mass index (BMI) Body weight Heart rate Oxygen saturation Oxygen saturation in Arterial blood by Pulse oximetry Systolic And Diastolic Provider Name and Address Organization Details Last Updated DateTime 5 154.94 cm 41.9 kg/m2 751293. 71 g 99 /min 97 % 97 % 103/70 mm[Hg] [facility] 5 17:07:51 Date Recorded Body mass index (BMI) Body weight Provider Name and Address Organization Details Last Updated DateTime 10/24/2024 41 kg/m2 36528.83 g Sosa John NP [address] [place] [address], [address], [employer] 10/24/2024 14:38:09 Date Recorded Body height Heart rate Oxygen saturation Oxygen saturation in Arterial blood by Pulse oximetry Systolic And Diastolic Provider Name and Address Organization Details Last Updated DateTime 5 154.94 cm 77 /min 97 % 97 % 96/67 mm[Hg] Chapis Ozuna [employer] 5 13:56:02 Date Recorded Body height Body mass index (BMI) Body weight Heart rate Oxygen saturation Oxygen saturation in Arterial blood by Pulse oximetry Systolic And Diastolic Provider Name and Address Organization Details Last Updated DateTime 5 154.94 cm 38 kg/m2 00974.1 7 g 103 /min 97 % 97 % 103/68 mm[Hg] Lyudmila [email or web address] 5 13:56:43 Social History Question Answer Notes LastModified by Organizat ion Details LastModified Time Tobacco Smoking Status Never Smoker [employer] 08/20/2023 10:46:23 Do You Have An Advance Directive? No [email or web address] Information not available 08/20/2023 Is Your Home Air Conditioned? Yes [email or web address] Information not available 08/20/2023 How Many Years Have You Consumed Alcohol? 5 [email or web address] Information not available 08/20/2023 Do You Wear A Helmet When Biking? Yes Information not available 08/20/2023 Are You Blind Or Do You Have Difficulty Seeing? No [email or web address] Information not available 08/20/2023 What Is Your Level Of Caffeine Consumption? Moderate [email or web address] Information not available 08/20/2023 What Type Of Rubber Goods Finisher Do You Use? [employer] [email or web address] Information not available 08/20/2023 In The 14 Days Before Symptom Onset, Have You Had Close Contact With A Laboratory-confir med COVID-19 While That Case Was Ill? No Information not available 10/12/2023 In The 14 Days Before Symptom Onset, Have You Had Close Contact With A Person Who Is Under Investigation For COVID-19 While That Person Was Ill? No Information not available 10/12/2023 Have You Been To An Area Known To Be High Risk For COVID-19? No Information not available 10/12/2023 Are You Deaf Or Do You Have Serious Difficulty Hearing? No [email or web address] Information not available 08/20/2023 What Type Of Diet Are You Following? REGULAR Information not available 08/20/2023 Who Is Your Employer? [employer] [email or web address] Information not available 08/20/2023 How Many Days Of Moderate To Strenuous Exercise, Like A Brisk Walk, Did You Do In The Last 7 Days? 3 [email or web address] Information not available 08/20/2023 Have There Been Any Changes To Your Family Or Social Situation? No [email or web address] Information no t available 08/20/2023 Are There Any Guns Present In Your Home? Yes [email or web address] Information not available 08/20/2023 Which Of Your Hands Is Dominant? Right [email or web address] Information not available 08/20/2023 What Is Your Home Situation? Both Parents [email or web address] Information not available 08/20/2023 Do You Have A Medical Power Of Farm Or Ranch Animal Caretaker? No Information not available 08/20/2023 What Was The Date Of Your Most Recent Tobacco Screening? 12/09/2024 [email or web address] Information not available 12/09/2024 Are There Any Occupational Health Risks Where You Work? No [email or web address] Information not available 08/20/2023 Do You Have Any Pets? Yes [email or web address] Information not available 08/20/2023 Do You Use Protection During Sex? No [email or web address] Information not available 08/20/2023 What Is Your Relationship Status? [email or web address] Information not available 08/20/2023 Have You Repeated Any Grades? Yes [email or web address] Information not available 08/20/2023 Do You Use Your Seat Belt Or Car Seat Routinely? Yes Information not available 08/20/2023 Are You Sexually Active? Yes [email or web address] Information not available 08/20/2023 Do You Have Any Siblings? 2 [email or web address] Information not available 08/20/2023 Do You Have Smoke And Carbon Monoxide Detectors In Your Home? Yes Information not available 08/20/2023 Are There Any Smokers In Your House? Yes [email or web address] Information not available 08/20/2023 Do You Participate In Social Media? Yes [email or web address] Information not available 2024 Do You Use Sunscreen Routinely? No [email or web address] Information not available 08/20/2023 Has Tobacco Cessation Counseling Been Provided? No [email or web address] Information not available 08/20/2023 Have You Recently Traveled Abroad? No Information not available 10/12/2023 Do You Have Difficulty Walking Or Climbing Stairs? No [email or web address] Information not available 08/20/2023 Do You Have Any Dietary Restrictions? No [email or web address] Information not available 2024 How Many Days In The Past Year Have You Consumed 4 Or More Drinks? 2 [email or web address] Information no t available 08/20/2023 Sex: Female Functional Status Question Answer Note LastModified by Organizat ion Details LastModified Time Do you use any illicit or recreational drugs? No [email or web address] Information not available 08/20/2023 Do you or have you ever used any other forms of tobacco or nicotine? Yes [email or web address] Information not available 08/20/2023 What is your level of alcohol consumption? Occasional [email or web address] Information not available 08/20/2023 Do you or have you ever used smokeless tobacco? Never used smokeless tobacco [email or web address] Information not available 08/20/2023 Are you currently employed? Yes [email or web address] Information not available 08/20/2023 Do you have transportation difficulties? No [email or web address] Information not available 2024 Are you able to walk independently without assistance or assistive devices? YESWOREST [email or web address] Information not available 08/20/2023 Do you have difficulty doing errands alone? No Information not available 08/20/2023 Are you able to care for yourself independently? Yes [email or web address] Information not available 08/20/2023 Do you have difficulty dressing, bathing, grooming, or toileting? No [email or web address] Information not available 08/20/2023 Do you or have you ever used e-cigarettes or vape? Former user of electronic cigarettes [email or web address] Information not available 10/24/2024 What is your exercise level? Occasional [email or web address] Information not available 08/20/2023 Mental Status Question Answer Note LastModified by Organizat ion Details LastModified Time Do you feel stressed (tense, restless, nervous, or anxious, or unable to sleep at night)? [id number] [email or web address] Information not available 2024 Do you have difficulty concentrating, remembering or making decisions? No [email or web address] Information no t available 08/20/2023 Are you or have you been involved with bullying? No [email or web address] Information not available 08/20/2023 Family History Relationship Description Onset Age of this Age Resolved Age Notes LastModified by Organization Details LastModified Time Unspecified Relation Family history of malignant neoplasm Relati ve: ''; [email or web address] Not available 08/20/2023 10:39:53 Unspecified Relation Family history of Respiratory disease Relati ve: ''; [email or web address] Not available 08/20/2023 10:39:53 Maternal Grandmother Hypertensive disorder [email or web address] Not available 12/2023 10:39:53 Sister Diabetes mellitus [id number] Not available 12/2023 10:39:53 Maternal Grandfather Hypercholest erolemia [id number] Not available 12/2023 10:39:53 Maternal Grandfather Diabetes mellitus [id number] Not available 12/2023 10:39:53 Notes:*Procedure Description : Documented family medical history in mother*Relative: Mother *Procedure Description: Documented family medical history in sister*Relative: Sister 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 Condition Response Hospitalizations N Acid Reflux (GERD) Y Emergency room visit since last appointm ent. N Gynecological History Statement/Question Response Abnormal Pap Y Flow Heavy Date of LMP 10/24/2023 HPV Vaccine N Duration of Flow (days) 7 Current Control Method IUD Age at Menarche 11 Most Recent Mammogram Age at First Child 21 Menses Monthly Y Date of Last Pap Smear 02/20/2023 Desired Control Method IUD Obstetrics History GPAL:G 3 P 0 0 0 3 Type Value Living 3 Total 3 Immunizations Vaccine Type Date Status Note Provider Nam e and Address Organization Details Recorded Time Influenza, split virus, quadrivalent, preservative 0 completed Monik Prasade null, [employer] 09/21/2023 14:58:52 COVID-19, mRNA, LNP-S, PF, 30 mcg/0.3 mL dose 1 completed Monik [place] null, [employer] 09/21/2023 14:58:52 COVID-19, mRNA, LNP-S, PF, 30 mcg/0.3 mL dose 1 completed Monik [employer], [employer] 09/21/2023 14:58:52 Influenza, split virus, quadrivalent, PF 1 completed Monik colvin [place] [facility] [place], [employer] 09/21/2023 14:58:52 Past Encounters Encounter ID Performer Location Encounter Start Date Encounter Closed Date Diagnosis/Indication Diagnosis SNOMED-CT Code Diagnosis ICD10 Code Diagnosis IMO Codes Diagnosis Note [id number] Sosa John NP [place] [address] 08/20/2023 10:36:53 08/20/2023 12:34:07 Body mass index 30+ - obesity 583779531 Z68.38 Negative urine test in clinic. Normal ECG in clinic.Lab s to r/o other underlying etiology for obesity, routine screening labs ordered as wellKasper reviewed by Alicia Solo APRN and is without any controlled substances in last 12 months.Perlita rios for phentermin e treatment, will send request to [facility] provider when lab results available. Patient is aware that phentermin e is most effective when combined with routine exercise and decreased caloric intake / healthy diet.Patie nt aware to report any chest pain, shortness of breath, palpitatio ns and stop the medication . Go to ER with severe chest pain or palpitatio ns / dizziness. Follow up in 4 weeks for recheck. Screening for cardiovascular system disease 647941770 Z13.6 Hepatitis C screening 41 0045007 Z11.59 Seen in [facility] establishment 412135185 Z76.89 Long-term drug therapy 982711971 Z79.650 [id number] [place] [address] 09/21/2023 14:46:49 09/21/2023 17:20:38 Contact dermatitis 26194947 L25.9 Steroid as prescribed .Follow up if no improvemen t or worsening. May continue calamine lotion for itching. Anxiety 42418524 F41.9 Start effexor as prescribed . Consider increasing dose at follow up. Discussed risks and benefits of medication . Encouraged patient to report any adverse reaction or negative side effects and stop medication is SI occurs or if palpitatio ns occur (currently on phentermin e). Body mass index 30+ - obesity 080569532 Z68.36 Patient is aware that phentermin e is most effective when combined with routine exercise and decreased caloric intake / healthy diet.Patie nt aware to report any chest pain, shortness of breath, palpitatio ns and stop the medication . Go to ER with severe chest pain or palpitatio ns / dizziness. Follow up in 4 weeks for recheck. [id number] Sosa John NP [place] [address] 10/12/2023 16:22:10 10/12/2023 17:35:26 Acute sinusitis 42661378 J01.90 [id number] Sosa John NP [place] [address] 10/19/2023 15:20:16 10/19/2023 16:08:52 Obesity 294406210 E66.9 Depressive disorder 3548 9007 F32.A [id number] Sosa John NP [place] [address] 11/11/2023 10:52:44 11/11/2023 11:02:42 Finding related to health literacy 761616429 Z55.6 [id number] Sosa John NP [place] [address] 11/16/2023 15:34:24 11/16/2023 16:29:50 Obesity 438724622 E66.9 Depressive disorder 3548 9007 F32.A Anxiety disorder 06 F41.9 [id number] Sosa John NP [place] [address] 2024 08:06:19 2024 09:02:09 Medication monitoring 211434522 Z51.81 Obesity 601914886 E66.9 Screening for cardiovascular system disease 164060654 Z13.6 Anxiety disorder 06 F41.9 Depressive disorder 3548 9007 F32.A [id number] Sosa John NP [place] [address] 06/23/2024 08:17:46 06/23/2024 09:32:38 Depressive disorder 45541550 F32.A Anxiety disorder F41.9 Obesity 507511497 E66.9 [id number] [place] [address] 07/27/2024 08:18:11 07/27/2024 09:21:43 Obesity 239613808 E66.9 Anxiety disorder F41.9 Neck pain 63058181 M54.2 Gastroesop hageal reflux disease without esophagitis 409645509 K21.9 [id number] [place] [address] 08/15/2024 16:57:37 08/15/2024 17:35:14 Pain of right breast 9505428188 N64.4 [id number] Discharge from right nipple 7854638806 8271509 N64.52 [id number] Axillary lymphadenopathy 394961253 R59.0 005753 Lump of muse bareolar area of right breast 7264165504 2499244 N63.41 [id number] Preoperative state 99459 002 Z01.818 108340 [id number] [place] [address] 10/24/2024 13:41:01 10/24/2024 14:41:48 Surgical follow-up 404702807 Z09 914196 Gastroesop hageal reflux disease without esophagitis 622636095 K21.9 [id number] [place] [address] 12/09/2024 13:41:29 12/09/2024 15:38:57 History of bariatric surgical procedure 509942264 Z98.84 [id number] [facility] 282621563 R42 67664 Anxiety disorder F41.9 Health Concerns Section Related Observation LastModified by Organization Detai ls LastModified Time None Recorded Concern Status LastModified by Organization Details LastModified Time None Recorded Advance Directives Directive N: Payers Insurance Date Sequence Insurance Name Policy Number Policy Fleming Covered Member ID Fleming Member ID Guarantor Name 12/20/2024 1 [place] [id number] 1 Adele Jeancarlos Niraj [id number] Adele Jeancarols Niraj 10/19/2023 1 [employer] Adele Jeancarlos Nena [id number] Adele Arshad Niraj 05/25/2024 1 *SELF PAY* Thomas Healy Notes Date Note Type Note Provider Name and Address Organization Details Recorded Time 06/23/2024 text/html Patient presents for follow up on weight management. She states she continues to have difficulty losing weight. She has some anxiety still, but it is a little better. Her libido has improved. She is tolerating lexapro as prescribed. She continues to have difficulty focusing and picks at her fingernails and the skin around all the time. Sosa John NP [address] [place], [address], [employer] 06/24/2024 12:44:59 07/27/2024 text/html Patient presents for follow up on mood.Going to bariatric surgery eval tomorrow.Wellbutri n and lexapro are both going well. Anxiety has improved. Taking trazodone and sleeping well.2 weeks tried to do a back handspring and landed on her head, has had neck pain on left side since then. Sosa John NP [address] [place], [address], [employer] 08/01/2024 10:18:40 08/15/2024 text/html Patient presents for follow up / weight management. Labs in chart for review. She needs PCP clearance / documentation. Nipple discharge. Right breast pain for awhile now. Family history of breast cancer - cousin age 32. First noticed 8 months ago. Sosa John NP [address] [place], [address], [employer] 08/24/2024 15:15:16 10/24/2024 text/html Patient presents for bariatric surgery follow up.States she was 234 starting weight; Surgery date 227lb. 1 week post op 219.She had laparoscopic gastric sleeve.She follows up on 11/14/2024.She has been struggling with getting enough intake.States her anxiety is a little better.She is sleeping okay. She is walking during the day. Sosa John NP [address] [place], [address], [employer] 11/04/2024 18:50:23 12/09/2024 text/html Patient presents for follow up.She is exhausted all the time. She is getting dizzy spells. She is vomiting with the multivitamin. She has not called her bariatric provider yet. Sosa John NP [address] [place], [address], [employer] 12/19/2024 19:07:50 OBGyn Episode No OBEpisode recorded.
--- OUTSIDE RECORDS SUMMARY | 2025-02-18 19:56 | XMS_ITS | Data Portability ---
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 They understand that there are many possible complications that may occur with bariatric surgery including but not limited to; bleeding, infection, staple line leak, injury to solid organ, injury to bowel, injury to bladder, injury to blood vessel, pneumonia, DVT, PE, , cardiac event, stricture, ulcer, non-healing of the staple line. They also understand that mcc they may develop some of these problems as well as the risk of vitamin deficiencies, malnutrition and this may require further surgery or interventional procedures such as feeding tubes or re-operation for their healing. They have also been given an extensive surgical consent that explains these risks and complications and have acknowledged and signed that they understand these. They understand Weight loss surgery is a tool and that compliance is mandatory to not only be successful but to give them the best chance to avoid complications. They understand they must keep all recommended office follow up appointments and laboratory checks Patient will return to clinic for postoperative follow-up 1 week after surgery. [email or web address] Not available 09/28/2024 09:26:06 Plan of Treatment Reminders Order Date Submit Date Provider Last Modified By Organization Details Last Modified Time Details Appointments None recorded. Lab CBC w/ auto diff 2024 025 SH[facility]ANI [facility], [address], [address], [place], [address], 5 20:36:18 CMP, serum or plasma 2024 025 SHIVANI [facility], [address], [address], [place], [address], 5 20:36:19 HbA1c (hemoglobi n A1c), blood 2024 025 SHIVANI [facility], [address], [address], [place], [address], 5 20:36:21 TSH + free T4, serum 2024 025 SHIVANI [facility], [address], [address], [place], [address], 5 20:36:17 lipid panel, serum 2024 025 SHIVANI [facility], [address], [address], [place], [address], 5 20:36:20 iron + TIBC + ferritin, serum 2024 025 SHIVANI [facility], [address], [address], [place], [address], 5 20:36:17 folate, serum 2024 025 SHIVANI [facility], [address], [address], [place], [address], 5 20:36:22 prealbumin , serum 2024 025 SHIVANI [facility], [address], [address], [place], [address], 5 20:36:25 thiamine, QN, blood 2024 025 SHIVANI [facility], [address], [address], [place], [address], 5 20:36:24 methylmalo madiha, QN, serum or plasma 2024 025 SHIVANI [facility], [address], [address], [place], [address], 5 20:36:24 vitamin D, 25-hydroxy , total, serum 2024 025 SHIVANI [facility], [address], [address], [place], [address], 5 20:36:23 vitamin E, serum 2024 025 SHIVANI [facility], [address], [address], [place], [address], 5 20:36:20 vitamin A (retinol), serum 2024 025 SHIVANI [facility], [address], [address], [place], [address], 5 20:36:22 CBC w/ auto diff 2024 025 SHIVANI [facility], [address], [address], [place], [address], 5 03:36:16 CMP, serum or plasma 2024 025 SHIVANI [facility], [address], [address], [place], [address], 5 03:36:17 HbA1c (hemoglobi n A1c), blood 2024 025 SHIVANI [facility], [address], [address], [place], [address], 5 03:36:18 Referral None recorded. Procedures None recorded. Surgeries None recorded. Imaging None recorded. Medication Orders Neurontin [address] [facility], [address] [place] [address], [address], 08:52:45 Celebrex 100 mg capsule 2024 025 [facility], [address] [place] [address], [address], 08:52:44 Patient Targets Encounter Date Encounter Id Patient Goals Patient Target Last Modified By Organization Details Last Modified Time 11/14/2024 [id number] 1. Eat 5-6 times a day 2. Try smoothies and increasing carbs and healhty fats to reach kcal goal 3. Track kcal 4. Work toward 25-30 gm fiber/day 5. Physical activity = walk, increase with kcal goals reached [email or web address] Not available 11/14/2024 13:43:46 Patient InstructionsNo instructions recorded. Reason for Referral None Reported. Results Created Date Observation Date Name Description Value Unit Range Abnormal Flag Note LastModifiedBy Organization Detail LastModifiedTime 09/15/1909/20/2024 NICOT INE AND METAB OLITE , QUANT nicotine <1.0 NG/mL This test was devel oped and its perfo rmanc e heide cteri stics deter mined by [facility]. It has not been clear ed or appro edna by the Food and Drug Admin istra tion. Nicot ine level s great er than 2.0 are consi stent with the use of tobac co or tobac co cessa tion produ cts. Not Available [facility] ([facility]) [address] [facility], [place], [address], 09/20/2024 16:14:18 09/15/1909/20/2024 NICOT INE AND METAB OLITE , QUANT cotinine <1.0 NG/mL This test was devel oped and its perfo rmanc e heide cteri stics deter mined by [facility]. It has not been clear ed or appro edna by the Food and Drug Admin istra tion. Cotin ine level s great er than 20.0 are consi stent with the use of tobac co or tobac co cessa tion produ cts. Not Available [facility] ([facility]) [address] [facility], [place], [address], 09/20/2024 16:14:18 09/29/19 25 09/29/2024 CBC WITH DIFFE RENTI AL/PL ATELE T WBC 6.4 x10e3 /uL 3.4-10 .8 normal Not Available [facility] ([facility]) [address] [place], [address], 09/29/2024 03:36:16 09/29/19 25 09/29/2024 CBC WITH DIFFE RENTI AL/PL ATELE T RBC 4.66 x10e6 /uL 3.77-5 .28 normal Not Available [facility] ([facility]) [address] [place], [address], 09/29/2024 03:36:16 09/29/19 25 09/29/2024 CBC WITH DIFFE RENTI AL/PL ATELE T hemoglobin 14.2 g/dL 11.1-1 5.9 normal Not Available [facility] ([facility]) [address] [place], [address], 09/29/2024 03:36:16 09/29/19 25 09/29/2024 CBC WITH DIFFE RENTI AL/PL ATELE T hematocrit 42.8 % 34.0-4 6.6 normal Not Available [facility] ([facility]) [address] [place], [address], 09/29/2024 03:36:16 09/29/19 25 09/29/2024 CBC WITH DIFFE RENTI AL/PL ATELE T MCV 92 fL 79-97 normal Not Available [facility] ([facility]) [address] [place], [address], 09/29/2024 03:36:16 09/29/19 25 09/29/2024 CBC WITH DIFFE RENTI AL/PL ATELE T MCH 30.5 pg 26.6-3 3.0 normal Not Available [facility] ([facility]) [address] [facility], [place], [address], 09/29/2024 03:36:16 09/29/19 25 09/29/2024 CBC WITH DIFFE RENTI AL/PL ATELE T MCHC 33.2 g/dL 31.5-3 5.7 normal Not Available [facility] ([facility]) [address] [place], [address], 09/29/2024 03:36:16 09/29/19 25 09/29/2024 CBC WITH DIFFE RENTI AL/PL ATELE T RDW 12.9 % 11.7-1 5.4 Not Available [facility] ([facility]) [address] [facility], [place], [address], 09/29/2024 03:36:16 09/29/19 25 09/29/2024 CBC WITH DIFFE RENTI AL/PL ATELE T platelets 173 x10e3 /uL 150-45 0 normal Not Available [facility] ([facility]) [address] [place], [address], 09/29/2024 03:36:16 09/29/19 25 09/29/2024 CBC WITH DIFFE RENTI AL/PL ATELE T neutrophils 46 % not estab. normal Not Available [facility] ([facility]) [address] [place], [address], 09/29/2024 03:36:16 09/29/19 25 09/29/2024 CBC WITH DIFFE RENTI AL/PL ATELE T lymphs 44 % not estab. normal Not Available [facility] ([facility]) [address] [place], [address], 09/29/2024 03:36:16 09/29/19 25 09/29/2024 CBC WITH DIFFE RENTI AL/PL ATELE T monocytes 7 % not estab. normal Not Available [facility] ([facility]) [address] [place], [address], 09/29/2024 03:36:16 09/29/19 25 09/29/2024 CBC WITH DIFFE RENTI AL/PL ATELE T eos 2 % not estab. normal Not Available [facility] ([facility]) [address] [place], [address], 09/29/2024 03:36:16 09/29/19 25 09/29/2024 CBC WITH DIFFE RENTI AL/PL ATELE T basos 0 % not estab. normal Not Available [facility] ([facility]) [address] [place], [address], 09/29/2024 03:36:16 09/29/19 25 09/29/2024 CBC WITH DIFFE RENTI AL/PL ATELE T immature cells OPERATOR Not Available [facility] ([facility]) [address] [place], [address], 09/29/2024 03:36:16 09/29/19 25 09/29/2024 CBC WITH DIFFE RENTI AL/PL ATELE T neutrophils (absolute) 3.0 x10e3 /uL 1.4-7. 0 normal Not Available [facility] ([facility]) [address] [place], [address], 09/29/2024 03:36:16 09/29/19 25 09/29/2024 CBC WITH DIFFE RENTI AL/PL ATELE T lymphs (absolute) 2.8 x10e3 /uL 0.7-3. 1 normal Not Available [facility] ([facility]) [address] [place], [address], 09/29/2024 03:36:16 09/29/19 25 09/29/2024 CBC WITH DIFFE RENTI AL/PL ATELE T monocytes(ab solute) 0.5 x10e3 /uL 0.1-0. 9 normal Not Available [facility] ([facility]) [address] [facility], [place], [address], 09/29/2024 03:36:16 09/29/19 25 09/29/2024 CBC WITH DIFFE RENTI AL/PL ATELE T eos (absolute) 0.1 x10e3 /uL 0.0-0. 4 normal Not Available [facility] ([facility]) [address] [facility], [place], [address], 09/29/2024 03:36:16 09/29/19 25 09/29/2024 CBC WITH DIFFE RENTI AL/PL ATELE T baso (absolute) 0.0 x10e3 /uL 0.0-0. 2 normal Not Available [facility] ([facility]) [address] [facility], [place], [address], 09/29/2024 03:36:16 09/29/19 25 09/29/2024 CBC WITH DIFFE RENTI AL/PL ATELE T immature granulocytes 1 % not estab. Not Available [facility] ([facility]) [address] [facility], [place], [address], 09/29/2024 03:36:16 09/29/19 25 09/29/2024 CBC WITH DIFFE RENTI AL/PL ATELE T immature grans (abs) 0.0 x10e3 /uL 0.0-0. 1 Not Available [facility] ([facility]) [address] [facility], [place], [address], 09/29/2024 03:36:16 09/29/19 25 09/29/2024 CBC WITH DIFFE RENTI AL/PL ATELE T NRBC OPERATOR Not Available [facility] ([facility]) [address] [facility], [place], [address], 09/29/2024 03:36:16 09/29/19 25 09/29/2024 CBC WITH DIFFE RENTI AL/PL ATELE T hematology comments: OPERATOR Not Available [facility] ([facility]) [address] [facility], [place], [address], 09/29/2024 03:36:16 09/29/19 25 09/29/2024 COMP. METAB OLIC PANEL (14) glucose 90 mg/dL 70-99 normal Not Available [facility] ([facility]) [address] [facility], [place], [address], 09/29/2024 03:36:17 09/29/19 25 09/29/2024 COMP. METAB OLIC PANEL (14) BUN 15 mg/dL 6-20 normal Not Available [facility] ([facility]) [address] [facility], [place], [address], 09/29/2024 03:36:17 09/29/19 25 09/29/2024 COMP. METAB OLIC PANEL (14) creatinine 0.70 mg/dL 0.57-1 .00 normal Not Available [facility] ([facility]) [address] [place], [address], 09/29/2024 03:36:17 09/29/19 25 09/29/2024 COMP. METAB OLIC PANEL (14) eGFR 120 mL/mi n/1.7 3 >59 normal Not Available [facility] ([facility]) [address] [place], [address], 09/29/2024 03:36:17 09/29/19 25 09/29/2024 COMP. METAB OLIC PANEL (14) BUN/creatini ne ratio 21 9-23 normal Not Available [facility] ([facility]) [address] [place], [address], 09/29/2024 03:36:17 09/29/19 25 09/29/2024 COMP. METAB OLIC PANEL (14) sodium 139 mmol/ L 134-14 4 normal Not Available [facility] ([facility]) [address] [place], [address], 09/29/2024 03:36:17 09/29/19 25 09/29/2024 COMP. METAB OLIC PANEL (14) potassium 4.3 mmol/ L 3.5-5. 2 normal Not Available [facility] ([facility]) [address] [facility], [address], 09/29/2024 03:36:17 09/29/19 25 09/29/2024 COMP. METAB OLIC PANEL (14) chloride 102 mmol/ L 96-106 normal Not Available [facility] ([facility]) [address] [place], [address], 09/29/2024 03:36:17 09/29/19 25 09/29/2024 COMP. METAB OLIC PANEL (14) carbon dioxide, total 22 mmol/ L 20-29 normal Not Available [facility] ([facility]) [address] [facility] [place], [address], 09/29/2024 03:36:17 09/29/19 25 09/29/2024 COMP. METAB OLIC PANEL (14) calcium 9.7 mg/dL 8.7-10 .2 normal Not Available [facility] ([facility]) [address] [facility] [place], [address], 09/29/2024 03:36:17 09/29/19 25 09/29/2024 COMP. METAB OLIC PANEL (14) protein, total 7.5 g/dL 6.0-8. 5 normal Not Available [facility] ([facility]) [address] [facility] [place], [address], 09/29/2024 03:36:17 09/29/19 25 09/29/2024 COMP. METAB OLIC PANEL (14) albumin 4.6 g/dL 4.0-5. 0 normal Not Available [facility] ([facility]) [address] [facility] [place], [address], 09/29/2024 03:36:17 09/29/19 25 09/29/2024 COMP. METAB OLIC PANEL (14) globulin, total 2.9 g/dL 1.5-4. 5 Not Available [facility] ([facility]) [address] [facility] [place], [address], 09/29/2024 03:36:17 09/29/19 25 09/29/2024 COMP. METAB OLIC PANEL (14) bilirubin, total 0.4 mg/dL 0.0-1. 2 normal Not Available [facility] ([facility]) [address] [facility] [place], [address], 09/29/2024 03:36:17 09/29/19 25 09/29/2024 COMP. METAB OLIC PANEL (14) alkaline phosphatase 71 IU/L 44-121 normal Not Available [facility] ([facility]) [address] [facility] [place], [address], 09/29/2024 03:36:17 09/29/19 25 09/29/2024 COMP. METAB OLIC PANEL (14) AST (SGOT) 47 IU/L 0-40 above high normal Not Available [facility] ([facility]) [address] [facility] [place], [address], 09/29/2024 03:36:17 09/29/19 25 09/29/2024 COMP. METAB OLIC PANEL (14) ALT (SGPT) 100 IU/L 0-32 above high normal Not Available [facility] ([facility]) [address] [facility] [place], [address], 09/29/2024 03:36:17 09/29/19 25 09/29/2024 HEMOG LOBIN A1C hemoglobin A1C 5.4 % 4.8-5. 6 normal Predi abete s: 5.7 - 6.4 Diabe geoff: >6.4 Glyce joan contr ol for adult s with diabe geoff: <7.0 Not Available [facility] ([facility]) [address] [place], [address], 09/29/2024 03:36:18 11/15/19 25 11/15/2024 FE+TI BC+FE R iron bind.cap.(TI BC) 308 ug/dL 250-45 0 normal Not Available [facility] ([facility]) [address] [place], [address], 11/18/2024 20:36:17 11/15/19 25 11/15/2024 FE+TI BC+FE R UIBC 226 ug/dL 131-42 5 normal Not Available [facility] ([facility]) [address] [place], [address], 11/18/2024 20:36:17 11/15/19 25 11/15/2024 FE+TI BC+FE R iron 82 ug/dL 27-159 normal Not Available [facility] ([facility]) [address] [place], [address], 11/18/2024 20:36:17 11/15/19 25 11/15/2024 FE+TI BC+FE R iron saturation 27 % 15-55 normal Not Available [facility] ([facility]) [address] [place], [address], 11/18/2024 20:36:17 11/15/19 25 11/15/2024 FE+TI BC+FE R ferritin 124 NG/mL 15-150 normal Not Available [facility] ([facility]) [address] [place], [address], 11/18/2024 20:36:17 11/15/19 25 11/15/2024 TSH+F REE T4 TSH 0.921 uIU/m L 0.450- 4.500 normal Not Available [facility] ([facility]) [address] [place], [address], 11/18/2024 20:36:17 11/15/19 25 11/15/2024 TSH+F REE T4 T4,free(dire ct) 1.14 NG/dL 0.82-1 .77 normal Not Available [facility] ([facility]) [address] [place], [address], 11/18/2024 20:36:17 11/15/19 25 11/15/2024 CBC WITH DIFFE RENTI AL/PL ATELE T WBC 5.6 x10e3 /uL 3.4-10 .8 normal Not Available [facility] ([facility]) [address] [place], [address], 11/18/2024 20:36:18 11/15/19 25 11/15/2024 CBC WITH DIFFE RENTI AL/PL ATELE T RBC 4.35 x10e6 /uL 3.77-5 .28 normal Not Available [facility] ([facility]) [address] [place], [address], 11/18/2024 20:36:18 11/15/19 25 11/15/2024 CBC WITH DIFFE RENTI AL/PL ATELE T hemoglobin 13.1 g/dL 11.1-1 5.9 normal Not Available [facility] ([facility]) [address] [place], [address], 11/18/2024 20:36:18 11/15/19 25 11/15/2024 CBC WITH DIFFE RENTI AL/PL ATELE T hematocrit 40.6 % 34.0-4 6.6 normal Not Available [facility] ([facility]) [address] [place], [address], 11/18/2024 20:36:18 11/15/19 25 11/15/2024 CBC WITH DIFFE RENTI AL/PL ATELE T MCV 93 fL 79-97 normal Not Available [facility] ([facility]) [address] [place], [address], 11/18/2024 20:36:18 11/15/19 25 11/15/2024 CBC WITH DIFFE RENTI AL/PL ATELE T MCH 30.1 pg 26.6-3 3.0 normal Not Available [facility] ([facility]) [address] [facility], [place], [address], 11/18/2024 20:36:18 11/15/19 25 11/15/2024 CBC WITH DIFFE RENTI AL/PL ATELE T MCHC 32.3 g/dL 31.5-3 5.7 normal Not Available [facility] ([facility]) [address] [facility], [place], [address], 11/18/2024 20:36:18 11/15/19 25 11/15/2024 CBC WITH DIFFE RENTI AL/PL ATELE T RDW 12.9 % 11.7-1 5.4 Not Available [facility] ([facility]) [address] [facility], [place], [address], 11/18/2024 20:36:18 11/15/19 25 11/15/2024 CBC WITH DIFFE RENTI AL/PL ATELE T platelets 151 x10e3 /uL 150-45 0 normal Not Available [facility] ([facility]) [address] [place], [address], 11/18/2024 20:36:18 11/15/19 25 11/15/2024 CBC WITH DIFFE RENTI AL/PL ATELE T neutrophils 54 % not estab. normal Not Available [facility] ([facility]) [address] [place], [address], 11/18/2024 20:36:18 11/15/19 25 11/15/2024 CBC WITH DIFFE RENTI AL/PL ATELE T lymphs 39 % not estab. normal Not Available [facility] ([facility]) [address] [place], [address], 11/18/2024 20:36:18 11/15/19 25 11/15/2024 CBC WITH DIFFE RENTI AL/PL ATELE T monocytes 6 % not estab. normal Not Available [facility] ([facility]) [address] [place], [address], 11/18/2024 20:36:18 11/15/19 25 11/15/2024 CBC WITH DIFFE RENTI AL/PL ATELE T eos 1 % not estab. normal Not Available [facility] ([facility]) [address] [place], [address], 11/18/2024 20:36:18 11/15/19 25 11/15/2024 CBC WITH DIFFE RENTI AL/PL ATELE T basos 0 % not estab. normal Not Available [facility] ([facility]) [address] [place], [address], 11/18/2024 20:36:18 11/15/19 25 11/15/2024 CBC WITH DIFFE RENTI AL/PL ATELE T immature cells OPERATOR Not Available [facility] ([facility]) [address] [place], [address], 11/18/2024 20:36:18 11/15/19 25 11/15/2024 CBC WITH DIFFE RENTI AL/PL ATELE T neutrophils (absolute) 2.9 x10e3 /uL 1.4-7. 0 normal Not Available [facility] ([facility]) [address] [place], [address], 11/18/2024 20:36:18 11/15/19 25 11/15/2024 CBC WITH DIFFE RENTI AL/PL ATELE T lymphs (absolute) 2.2 x10e3 /uL 0.7-3. 1 normal Not Available [facility] ([facility]) [address] [place], [address], 11/18/2024 20:36:18 11/15/19 25 11/15/2024 CBC WITH DIFFE RENTI AL/PL ATELE T monocytes(ab solute) 0.4 x10e3 /uL 0.1-0. 9 normal Not Available [facility] ([facility]) [address] [facility], [place], [address], 11/18/2024 20:36:18 11/15/19 25 11/15/2024 CBC WITH DIFFE RENTI AL/PL ATELE T eos (absolute) 0.1 x10e3 /uL 0.0-0. 4 normal Not Available [facility] ([facility]) [address] [facility], [place], [address], 11/18/2024 20:36:18 11/15/19 25 11/15/2024 CBC WITH DIFFE RENTI AL/PL ATELE T baso (absolute) 0.0 x10e3 /uL 0.0-0. 2 normal Not Available [facility] ([facility]) [address] [facility], [place], [address], 11/18/2024 20:36:18 11/15/19 25 11/15/2024 CBC WITH DIFFE RENTI AL/PL ATELE T immature granulocytes 0 % not estab. Not Available [facility] ([facility]) [address] [facility], [place], [address], 11/18/2024 20:36:18 11/15/19 25 11/15/2024 CBC WITH DIFFE RENTI AL/PL ATELE T immature grans (abs) 0.0 x10e3 /uL 0.0-0. 1 Not Available [facility] ([facility]) [address] [place], [address], 11/18/2024 20:36:18 11/15/19 25 11/15/2024 CBC WITH DIFFE RENTI AL/PL ATELE T NRBC OPERATOR Not Available [facility] ([facility]) [address] [place], [address], 11/18/2024 20:36:18 11/15/19 25 11/15/2024 CBC WITH DIFFE WILLIAM AL/ELVIE Orantes hematology comments: OPERATOR Not Available [facility] ([facility]) [address] [facility], [place], [address], 11/18/2024 20:36:18 11/15/19 25 11/15/2024 COMP. METAB OLIC PANEL (14) glucose 85 mg/dL 70-99 normal Not Available [facility] ([facility]) [address] [facility], [place], [address], 11/18/2024 20:36:19 11/15/19 25 11/15/2024 COMP. METAB OLIC PANEL (14) BUN 18 mg/dL 6-20 normal Not Available [facility] ([facility]) [address] [facility], [place], [address], 11/18/2024 20:36:19 11/15/19 25 11/15/2024 COMP. METAB OLIC PANEL (14) creatinine 0.61 mg/dL 0.57-1 .00 normal Not Available [facility] ([facility]) [address] [facility], [place], [address], 11/18/2024 20:36:19 11/15/19 25 11/15/2024 COMP. METAB OLIC PANEL (14) eGFR 124 mL/mi n/1.7 3 >59 normal Not Available [facility] ([facility]) [address] [facility], [place], [address], 11/18/2024 20:36:19 11/15/19 25 11/15/2024 COMP. METAB OLIC PANEL (14) BUN/creatini ne ratio 30 9-23 above high normal Not Available [facility] ([facility]) [address] [facility], [place], [address], 11/18/2024 20:36:19 11/15/19 25 11/15/2024 COMP. METAB OLIC PANEL (14) sodium 140 mmol/ L 134-14 4 normal Not Available [facility] ([facility]) [address] [facility] [place], [address], 11/18/2024 20:36:19 11/15/19 25 11/15/2024 COMP. METAB OLIC PANEL (14) potassium 3.9 mmol/ L 3.5-5. 2 normal Not Available [facility] ([facility]) [address] [facility] [place], [address], 11/18/2024 20:36:19 11/15/19 25 11/15/2024 COMP. METAB OLIC PANEL (14) chloride 103 mmol/ L 96-106 normal Not Available [facility] ([facility]) [address] [facility] [place], [address], 11/18/2024 20:36:19 11/15/19 25 11/15/2024 COMP. METAB OLIC PANEL (14) carbon dioxide, total 21 mmol/ L 20-29 normal Not Available [facility] ([facility]) [address] [facility] [place], [address], 11/18/2024 20:36:19 11/15/19 25 11/15/2024 COMP. METAB OLIC PANEL (14) calcium 9.7 mg/dL 8.7-10 .2 normal Not Available [facility] ([facility]) [address] [facility] [place], [address], 11/18/2024 20:36:19 11/15/19 25 11/15/2024 COMP. METAB OLIC PANEL (14) protein, total 7.1 g/dL 6.0-8. 5 normal Not Available [facility] ([facility]) [address] [facility] [place], [address], 11/18/2024 20:36:19 11/15/19 25 11/15/2024 COMP. METAB OLIC PANEL (14) albumin 4.6 g/dL 4.0-5. 0 normal Not Available [facility] ([facility]) [address] [facility] [place], [address], 11/18/2024 20:36:19 11/15/19 25 11/15/2024 COMP. METAB OLIC PANEL (14) globulin, total 2.5 g/dL 1.5-4. 5 Not Available [facility] ([facility]) [address] [facility] [place], [address], 11/18/2024 20:36:19 11/15/19 25 11/15/2024 COMP. METAB OLIC PANEL (14) bilirubin, total 0.6 mg/dL 0.0-1. 2 normal Not Available [facility] ([facility]) [address] [facility] [place], [address], 11/18/2024 20:36:19 11/15/19 25 11/15/2024 COMP. METAB OLIC PANEL (14) alkaline phosphatase 98 IU/L 44-121 normal Not Available [facility] ([facility]) [address] [facility] [place], [address], 11/18/2024 20:36:19 11/15/19 25 11/15/2024 COMP. METAB OLIC PANEL (14) AST (SGOT) 34 IU/L 0-40 normal Not Available [facility] ([facility]) [address] [place], [address], 11/18/2024 20:36:19 11/15/19 25 11/15/2024 COMP. METAB OLIC PANEL (14) ALT (SGPT) 68 IU/L 0-32 above high normal Not Available [facility] [address] [place], [address], 11/18/2024 20:36:19 11/15/19 25 11/15/2024 LIPID PANEL cholesterol, total 189 mg/dL 100-19 9 normal Not Available [facility] ([facility]) [address] [place], [address], 11/18/2024 20:36:20 11/15/19 25 11/15/2024 LIPID PANEL triglyceride s 118 mg/dL 0-149 normal Not Available [facility] ([facility]) [address] [place], [address], 11/18/2024 20:36:20 11/15/19 25 11/15/2024 LIPID PANEL HDL cholesterol 41 mg/dL >39 normal Not Available [facility] ([facility]) [address] [place], [address], 11/18/2024 20:36:20 11/15/19 25 11/15/2024 LIPID PANEL VLDL cholesterol regine 21 mg/dL 5-40 Not Available [facility] ([facility]) [address] [place], [address], 11/18/2024 20:36:20 11/15/19 25 11/15/2024 LIPID PANEL LDL chol calc ([facility]) 127 mg/dL 0-99 above high normal Not Available [facility] ([facility]) [address] [place], [address], 11/18/2024 20:36:20 11/15/19 25 11/15/2024 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 9 Refer ence inter vals for alpha and gamma -toco phero l deter mined from [facility] and Nutri tion Exami natio n Surve y, 2004- 2005. Indiv idual s with alpha -toco phero l level s less than 5.0 mg/L are consi dered vitam in E defic ient. Not Available [facility] ([facility]) [address] [facility], [place], [address], 11/18/2024 20:36:20 11/15/19 25 11/15/2024 HEMOG LOBIN A1C hemoglobin A1C 5.2 % 4.8-5. 6 normal Predi abete s: 5.7 - 6.4 Diabe geoff: >6.4 Glyce joan contr ol for adult s with diabe geoff: <7.0 Not Available [facility] ([facility]) [address] [facility], [place], [address], 11/18/2024 20:36:21 11/15/19 25 11/15/2024 FOLAT E (FOLI C ACID) , SERUM folate (folic acid), serum 17.7 NG/mL >3.0 normal A serum folat e leonid ntrat ion of less than 3.1 ng/mL is consi dered to repre sent clini regine defic iency . Not Available [facility] ([facility]) [address] [facility], [place], [address], 11/18/2024 20:36:22 11/15/1911/18/2024 VITAM IN A, SERUM vitamin A 43.0 ug/dL 18.9-5 7.3 Refer ence inter vals for vitam in A deter mined from [facility] inter nal studi es. Indiv idual s with vitam in A less than 20 ug/dL are consi dered vitam in A defic ient and those with serum leonid ntrat ions less than 10 ug/dL are consi dered sever krystina defic ient. This test was devel oped and its perfo rmanc e heide cteri stics deter mined by [facility]. It has not been clear ed or appro edna by the Food and Drug Admin istra tion. Not Available [facility] ([facility]) [address] [facility], [place], [address], 11/18/2024 20:36:22 11/15/19 25 11/15/2024 VITAM IN D, 25-HY DROXY vitamin D, 25-hydroxy 51.9 NG/mL 30.0-1 00.0 Vitam in D defic [...] 1. IOM (Inst itute of Medic ine). 2009. Dieta ry refer ence clarisa es for calci um and D. Mony oconnor [place]: The Natio nal [facility] Press . 2. Ella rodriguez MF, Filiberto joaquin [place], Sonido off-F errar i MURRAY, et al. Evalu ation , treat ment, and preve ntion of vitam in D defic iency : an Endoc rine Socie ty clini regine pract ice guide line. JCEM. 2010; 96(7) :1911 -30. Not Available [facility] ([facility]) [address] [facility], [place], [address], 11/18/2024 20:36:23 11/15/19 25 11/17/2024 VITAM IN B1 (THIA MINE) , BLOOD vit. B1, whole blood 137.7 nmol/ L 66.5-2 00.0 Not Available [facility] ([facility]) [address] [facility], [place], [address], 11/18/2024 20:36:24 11/15/19 25 11/16/2024 METHY LMALO MARU ACID, SERUM methylmaloni c acid, serum 79 nmol/ L 0-378 Not Available [facility] ([facility]) [address] [facility], [place], [address], 11/18/2024 20:36:24 11/15/19 25 11/15/2024 PREAL BUMIN prealbumin 27 mg/dL 14-35 Not Available [facility] ([facility]) [address] [facility], [place], [address], 11/18/2024 20:36:25 09/20/19 25 XR, chest , 2 view No observ ation record ed. [email or web address] Not Available 2024 13:07:47 Result Notes None recorded. Problems Name Problem SNOMED Code Status Onset Date Resolution Date Notes Provider Name and Address Organization Details Recorded Time Body mass index 40+ - severely obese 093775879 Active 2024 RORO Hernández [address], [place], [address] , [place] - [facility] - [place] & [place] 5 10:26:59 Mixed hyperlipidemi a 661634707 Active 2024 RORO Hernández [address], [place], [address] , [place] [facility] [place] & [place] 5 10:27:27 Anxiety 54259566 Active 2024 RORO Hernández [address], [place], [address] , [place] [facility] [place] & [place] 5 10:27:35 Heartburn 15084598 Active 2024 RORO Hernández [address], [place], [address] , [place] [facility] [place] & [place] 5 10:27:55 Smoker 57486500 Active 2024 RORO Hernández [address], [place], [address] , [place] [facility] [place] & [place] 5 09:19:26 Gastritis 2708418 Active 2024 RORO Hernández [address], [place], [address] , [facility] - [facility] & [place] 5 07:57:34 Weight decreased 788854540 Active 2024 Willi Pride, RGIS, PROPAGATION WORKER, OPERATOR-C [address], [place], [address] , [facility] - [facility] & [place] 5 10:14:29 Morbid obesity 717964713 Active 2024 Willi Pride, GRIS, PROPAGATION WORKER, OPERATOR-C [address], [place], [address] , [facility] - [facility] & [place] 5 10:56:13 Problem Notes Documentation Provider Name and Address Organization Details Recorded Time Nutrition Consult/Follow-up Progress Note [facility] Name Autumn Adele R Date of Service 1008 [id number] (F) Attending MELL CHUNG Admitted [id number] Discharged Primary GLENN Matias - Nutritional Comments: RDN rounded on pt this AM s/p sleeve. Pt reports doing well. Tolerating PO liquids. Ambulating often. Provided patient with stage 1 clear liquid diet and vitamins to start taking or purchase including: MVI, Fe and Ca. Pt was reminded via handout to attend post-op class and f/u on Thursday10/18/2024. Pt was informed that class is 1 hour followed by visit with provider. Advised pt to continue clear liquids through POD#7 then begin full liquids on POD#8 continuing through POD#14. . Encouraged to start tracking calories and protein with an fernando or pen/paper. Advised to get 70g protein/day and 64 oz. caffeine-free, un-carbonated beverages. RDN addressed pt questions. Verbally agreeable to recommendations. RDN available PRN for assistance. Electronically signed by TELMA Jackson RD on 1009 1 of 1 CC'ed Logic: Ordering Provider: TELMA GARCIA Attending Provider: MELL ZAMORANO Referring Provider: MELL ZAMORANO Admitting Provider: MELL Pride, DNP, PROPAGATION WORKER, OPERATOR-C [address] [facility], [place], [address], [facility] & [place] 10/18/2024 08:46:28 Procedures Surgical History Date Name Laterality Status Provider Name and Address Organization Details Recorded Time Cholecystectomy completed RORO Hernández [address] [facility], [place], [address] , [facility] & [place] 5 10:31:53 appendectomy completed Linda Chinchilla [facility] & [place] 5 15:46:32 extraction of wisdom tooth completed Linda Chinchilla [facility] & [place] 5 15:46:49 esophagogastroduodenoscopy completed Linda Chinchilla [facility] & [place] 5 08:26:01 laparoscopic sleeve gastrectomy completed El lyle [facility] & [place] 5 08:42:50 Imaging Results None recorded. Procedure Notes None recorded. Medical Equipment None Reported. Allergies No known drug allergies Medications Name Sig Start Date Stop Date Status Note LastModified by Organization Details LastModified Time bupropion HCl SR 150 mg tablet,12 hr sustained-re lease Take 1 tablet twice a day by oral route. 11/14 completed Not Available Not Available Not Available trazodone 50 mg tablet Take 1 tablet every day by oral route. active Not Available Not Available No t Available gabapentin 300 mg capsule TAKE ONE CAPSULE BY MOUTH THREE TIMES DAILY FOR 7 DAYS 10/18 completed Not Available Not Available Not Available omeprazole 20 mg capsule,wanda yed release TAKE 1 CAPSULE BY MOUTH EVERY DAY active Not Available Not Available No t Available celecoxib 100 mg capsule TAKE ONE CAPSULE BY MOUTH TWICE DAILY FOR 7 DAYS 10/18 completed Not Available Not Available Not Available escitalopram 20 mg tablet TAKE 1 TABLET BY MOUTH EVERY DAY active Not Available Not Available No t Available Vitamin D3 active Not Available Not Av ailable Not Available Soft Chews Calcium active Not Available Not Available Not Available cholecalcife rol (vitamin D3) 1,250 mcg (50,000 unit) capsule Take 1 capsule every week by oral route. 09/28 completed Not Available Not Available Not Available Bariatric Multivitamin s active Not Available Not Available Not Available Vitals Date Recorded Body height Body mass index (BMI) Body weight Body temperature Heart rate Systolic And Diastolic Provider Name and Address Organization Details Last Updated DateTime 5 154.94 cm 43.5 kg/m2 198205. 25 g 97.5 [degF] 83 /min 119/82 mm[Hg] Linda Amor [facility] & [place] 5 08:26:30 Date Recorded Body height Body temperature Body mass index (BMI) Body weight Heart rate Systolic And Diastolic Provider Name and Address Organization Details Last Updated DateTime 5 154.94 cm 98.4 [degF] 44.2 kg/m2 398980. 54 g 101 /min 128/83 mm[Hg] Nelliluis miguel Spann [facility] & [place] 5 08:07:19 Date Recorded Body height Body mass index (BMI) Body weight Body temperature Heart rate Systolic And Diastolic Provider Name and Address Organization Details Last Updated DateTime 5 154.94 cm 41.4 kg/m2 87458.4 5 g 98 [degF] 72 /min 102/68 mm[Hg] Elramone Matthews nikita [facility] & [place] 5 08:44:08 Date Recorded Body height Body mass index (BMI) Body weight Body temperature Heart rate Systolic And Diastolic Provider Name and Address Organization Details Last Updated DateTime 5 154.94 cm 38.7 kg/m2 10434.4 4 g 97.5 [degF] 67 /min 115/77 mm[Hg] Alberta Jef [facility] & [place] 5 10:46:53 Social History Question Answer Notes LastModified by Organizat ion Details LastModified Time Tobacco Smoking Status Former Smoker [facility] & [place] 09/28/2024 08:03:32 What Is Your Level Of Caffeine Consumption? Occasional [email or web address] Information not available 09/28/2024 Sex: Female Functional Status Question Answer Note LastModified by Organizat ion Details LastModified Time Do you use any illicit or recreational drugs? No [email or web address] Information not available 07/28/2024 What is your level of alcohol consumption? Occasional [email or web address] Information not available 07/28/2024 Mental Status None recorded. Family History Relationship Description Onset Age of this Age Resolved Age Notes LastModified by Organization Details LastModified Time Father Chronic obstructive pulmonary disease [email or web address] Not available 08:11:20 Sister Diabetes mellitus [email or web address] Not available 2024 00:15:00 Maternal Grandfather Diabetes mellitus SHIVANI Not available 2024 00:15:00 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 Condition Response Coronary Artery Disease N Weight loss or gain Y Hernia Y Deep Vein Thrombosis N Anxiety Disorder Y Diabetes N Reflux/GERD Y GERD/Reflux Y High Cholesterol Y Liver Disease N Heart Disease N Pulmonary Embolism N Hypertension N Kidney Disease N Gynecological HistoryNo gynecological history recorded. Obstetrics History GPAL:G 0 P 0 0 0 0 Immunizations Vaccine Type Date Status Note Provider Nam e and Address Organization Details Recorded Time influenza, unspecified formulation 02/01/2024 completed CIARA Borrego - [facility] & [place] 11/14/2024 10:48:45 Past Encounters Encounter ID Performer Location Encounter Start Date Encounter Closed Date Diagnosis/Indication Diagnosis SNOMED-CT Code Diagnosis ICD10 Code Diagnosis IMO Codes Diagnosis Note [id number] RORO Hern[facility]dez [facility] [address] [place] [address] 07/28/2024 07:59:53 07/28/2024 10:42:29 Pre-surgery evaluation 477874305 Z01.818 Obesity screening 250523 005 Z13.89 Body mass index 40+ - severely obese 831317689 E66.01 60857550 The patient will be scheduled for the following. Initial intake lab work, cardiac clearance, pulmonolog y clearance and EGD.All risks complicati ons and alternativ es of the upper endoscopy were discussed with the patient and agreed upon. These include but are not limited to, over sedation, bleeding, perforatio n.Patient will be educated by the surgical weight loss team regarding if any medical managed weight loss will be required and they will follow this according to their recommenda tions.jaqueline ent will follow-up in office after all testing has been completed Mixed hyperlipidemia 267 656903 E78.2 34744 Anxiety 48047991 F41.9 32436 Heartburn 77036377 R12 733692 Patient will have preoperati ve EGD to further evaluate reflux disease and hiatal hernia. Discussed hiatal hernia repair with patient today Vaping 019424806 Z72.89 [id number] Discussion at length today regarding the risks of tobacco use perioperat ively and the contraindi cation to use tobacco/ni cotine products. Specifical ly, in regards to weight loss surgery, the risk of poor staple line healing leading to postoperat kathia complicati on including leak. Patient advised to stop all tobacco/ni cotine products 6 months prior to weight loss surgery. Perioperat kathia testing requiremen t explained. Patient voices understand [facility] [id number] [facility] [address] [place] [address] 07/28/2024 10:40:18 07/28/2024 11:37:22 Diet education 61145319 Z71.3 344923 Completed nutrition evaluation and education with patient. Education provided:- Importance of not skipping meals and eating every 2-4 hours.- Meeting protein goals based on recommende d surgery.-B egin reducing the amount of carbonated , caffeinate d, and sugary beverages consumed.- Encouraged getting in 64 oz. of fluids daily-Impo rtance of physical activity to help maintain muscle mass and to have successful weight loss-Impor tance of tracking calories and protein with a smartphone fernando-Encour aged trying different protein shakes. Handouts provided: Surgical weight loss manual with nutrition education regarding protein, fruits, vegetables , grains, dairy, fats/oil, cooking methods, sample meal plan, and sample mix and match pairings, and exercise. Specific surgical manual provided to patient based on recommende d surgery. [id number] Magan Bee MD [facility] [address] [place] [address] 08/11/2024 14:23:59 08/11/2024 15:19:10 Preprocedural examination done 4743951980 25792 Z01.818 671758 Good functional capacity with no prior cardiac history. Patient is low risk for cardiovasc ular complicati ons. No further cardiac testing warranted at this point. [id number] [facility] [address] [place] [address] [address] [place] [address] 09/19/2024 08:14:13 09/19/2024 08:36:25 Gastritis 6501918 K29.70 [id number] Discussed EGD findings with the patient today.Jaqueline ent advised to continue daily omeprazole . She is to report any worsening reflux or dyspepsia. She may proceed with workup towards weight loss surgery. [id number] MD [facility] [address] [place] [address] [address] [place] [address] 09/28/2024 07:46:43 09/28/2024 12:20:28 Morbid obesity 672626757 E66.01 Pre-surger y evaluation 808278895 Z01.818 Postoperative pain 93603 9007 G89.18 Mixed hyperlipidemia 267 515814 E78.2 00766 [id number] Willi Pride, DNP, PROPAGATION WORKER, OPERATOR-C [facility] [address] [place] [address] [address] [place] [address] 10/18/2024 08:38:37 10/18/2024 11:28:08 History of bariatric surgical procedure 996971333 Z98.84 130072 The patient is doing well. The patient is instructed to continue their vitamins as directed. They are to continue advancing their diet as directed. They may start exercising but keep lifting less than 25 pounds for 2 more weeks. I will see them back in 3 weeks or one month from surgery. We will order their first set of labs at that time. I summarized the expectatio ns for the upcoming year. We will check labs at their one month visit from surgery, 3 months from surgery as well as at 6, 9, and 12 months from surgery. These labs will be ordered on the day of their appointmen t. They have the option to come to the appointmen t fasting and labs can be drawn that day at the hospital. If not, I expect these labs to be drawn within the week of ordering them. If they choose to have them drawn at another [facility] they are to make sure that the labs are sent to my office. These labs will be reviewed once received and the patient will be called with any significan t abnormalit ies and how they should be addressed. If they would like a copy of their labs they are welcome to request these and we will send a copy to them. If their labs and vitamin levels are adequate at 12 months then they will need lab checks every 6mth-12mth . They consent to understand this plan and agree to comply. Mixed hyperlipidemia 267 530265 E78.2 04500 Body mass index 40+ - severely obese 057593782 E66.01 03583769 Weight decreased 4215742 01 R63.4 59971 [id number] Willi Pride, DNP, PROPAGATION WORKER, OPERATOR-C [facility] [address] [facility] [address] [place] [address] 11/14/2024 10:31:20 11/14/2024 11:16:23 History of bariatric surgical procedure 574233944 Z98.84 778243 The patient is doing well. The patient is instructed to continue their vitamins as directed. They are to continue advancing their diet as directed. They may start exercising but keep lifting less than 25 pounds for 2 more weeks. I will see them back in 3 weeks or one month from surgery. We will order their first set of labs at that time. I summarized the expectatio ns for the upcoming year. We will check labs at their one month visit from surgery, 3 months from surgery as well as at 6, 9, and 12 months from surgery. These labs will be ordered on the day of their appointmen t. They have the option to come to the appointmen t fasting and labs can be drawn that day at the hospital. If not, I expect these labs to be drawn within the week of ordering them. If they choose to have them drawn at another [facility] they are to make sure that the labs are sent to my office. These labs will be reviewed once received and the patient will be called with any significan t abnormalit ies and how they should be addressed. If they would like a copy of their labs they are welcome to request these and we will send a copy to them. If their labs and vitamin levels are adequate at 12 months then they will need lab checks every 6mth-12mth . They consent to understand this plan and agree to comply. Intentiona l weight loss 690932171 R63.8 History of gastrectomy 823610294 Z90.3 Advised qid intake 50% protein 0743-0708 calories/d y less than 100 carbs/dySh e will see dietitian today.Foll ow-up with Repeat JOSE MARIA in 3mth suggested Patient is status post bariatric surgery and at increased risk for vitamin deficienci es and malnutriti on. Bariatric vitamin panel ordered today. Patient will be contacted to correct any vitamin deficienci es. At [facility] risk of nutritional deficit 774419303 Z91.89 Mixed hyperlipidemia 267 362696 E78.2 69299 Morbid obesity 648313307 E66.01 51940 Weight decreased 6735661 01 R63.[id number], LD [facility] [address] [facility] [address] [place] [address] 11/14/2024 11:19:12 11/14/2024 11:38:21 Morbid obesity 664498680 E66.01 28116 BMI 38.7 wt loss 28.7# Diet education 09900896 Z71.3 648246 Health Concerns Section Related Observation LastModified by Organization Detai ls LastModified Time None Recorded Concern Status LastModified by Organization Details LastModified Time None Recorded Advance Directives Directive None Recorded Payers Insurance Date Sequence Insurance Name Policy Number Policy Fleming Covered Member ID Fleming Member ID Guarantor Name 01/13/2025 1 [place] [id number] 1 Adele Healy [id number] Adele Barrett 01/13/2025 2 [employer] [facility] (MEDICAID HMO) Adele Barrett [id number] Adele Barrett Notes Date Note Type Note Provider Name and Address Organization Details Recorded Time 5 text/html ROS as noted in the HPI Pt is in process for weight loss surgery. She returns to clinic today discuss recent EGD findings.08/04/24 EGD shows erosive gastritis Neg H. Pylori. No hiatal hernia. No esophagitis TODAY: Patient reports no prandial symptoms or reflux. She has been taking omeprazole daily. She is in process for weight loss surgery and states she is awaiting insurance approval and scheduling for MDCON visit RORO Hernández [address], [place], [address], [facility] & [place] 09/19/2024 08:49:06 5 text/html ROS as noted in the HPI The patient is here today to schedule bariatric surgery which is Robotic sleeve gastrectomy. They have undergone all required pre-operative work up and screening and have been approved to proceed with surgery. They deny any recent changes in their medical history since originally seen for their intake history and physical exam. They have undergone a 1 hour education class by myself reviewing the entire surgical process what to expect pre-operatively, during their hospital stay and when they are discharged home. They have had the opportunity to ask questions and all questions have been addressed. They have also undergone a class with the clerk carrier and have received clear instructions on what is required regarding fluid intake, protein intake and vitamin consumption postoperatively. The patient is being managed by their PCP for hyperlipidemia and is currently stable. JAZZY SOUSA MD [address], [place], [address], [facility] & [place] 09/28/2024 12:05:15 5 text/html ROS as noted in the HPI Patient presents for 1wk Post-Op Check s/p Bariatric surgery. Patient had a gastric Laparoscopic sleeve gastrectomyRobotic assisted performed on 2024 . Today patient is on post-operative day # 8. Patient is doing well. Tolerating PO intake w/out issue. Getting 70g/day protein. Pt reports good hydration. Is consuming 45-50 oz of water a day.Taking recommended vitamins and PPI.Pt Denies : abdominal pain, prandial issues Nausea, Vomiting, bowel or bladder issuesTotal Weight loss 14 pounds.Patient has not seen PCP since surgery. She is set to see them tomorrow.Path benignPatient is happy with their quality of life after Weight loss Surgery. Willi Pride, DNP, PROPAGATION WORKER, OPERATOR-C [address], [place], [address], [facility] & [place] 10/18/2024 10:14:57 5 text/html ROS as noted in the HPI Patient presents the office today for routine 1 month follow-up status post bariatric gastric sleeve gastrectomyRobotic assisted performed on 2024. Patient doing well. Reports q.i.d. small meal intake. Reports 60-80g/dy protein intake and good hydration.Patient is drinking 50 ounces of water a day.Daily Calories 550-600Taking routine vitamins as advised.Heartburn/gastr oesophageal reflux: deniesPt Denies : abdominal pain, prandial issues Nausea, Vomiting, bowel or bladder issuesTotal Weight loss Since last office visit has been 14.3 lbsPt is happy with their quality of life after Weight loss Surgery. She has been walking 1.5 miles each night. Willi Pride, DNP, PROPAGATION WORKER, OPERATOR-C [address] [facility], [place], [address], [facility] & [place] 11/14/2024 11:39:39 5 text/html ADIME TemplateA: NATAN met w/Adele Barrett for 1 mo f/up via office visit s/p Sleeve. Pt weight at MD Consult: 233.7#Current Weight: 205#Total Weight Change: -28.7#Notes on weight: Signs/SymptomsN/V/C/D: N/V when eats too fast Pertinent Labs/Meds/Vitamin regimen: taking vitamins as recommended Physical activity: walking Tracking food/beverages consumed: Est. daily kcal intake: 500 Est. daily protein intake: 60-70 gm Est. daily fluid intake: 50 oz Meal Pattern: eating 5 times a day Additional notes/concerns: Patient is drinking 2 protein shakes a day. Recommended patient try smoothies to try to increase protein and kcal intake. Also recommended increasing carbs and healthy fats to reach kcal goals. Encouraged patient to try more food during the day and leave smoothie for after dinner I: NATAN Recommendations/Goals:1 . Eat 5-6 times a day2. Try smoothies and increasing carbs and healhty fats to reach kcal goal3. Track kcal4. Work toward 25-30 gm fiber/day5. Physical activity = walk, increase with kcal goals reached Pt verbally agreed to recommendations and goals. Denied further questions/concerns. M/E: RDN will monitor weight loss, labs, and lifestyle modifications. Will f/up as scheduled or PRN. . LEAH CARBALLO [address], LD [address], [place], [address], [facility] [place] - [place] & [place] 11/14/2024 13:44:18 OBGyn Episode No OBEpisode recorded.
--- OUTSIDE RECORDS SUMMARY | 2025-02-18 19:56 | XMS_ITS | Clinical Summary ---
Author Organization [facility] Address [address] [place] [address] Care Team Providers Care Toe Laster Name Role Phone Heather Solo Primary Care Provider [phone] Allergies No known active allergies Medications * This document contains information received from the source organization and may not represent a complete record from that organization. famotidine (PEPCID) 20 MG tablet Take 2 tablets by mouth 2 (Two) Times a Day. Active Vit-Fe Fumarate-FA ( vitamin 27-0.8) 27-0.8 MG tablet tablet Take by mouth Daily. Active insulin detemir (Levemir FlexPen) 100 UNIT/ML injection Inject 20 Units under the skin into the appropriate area as directed Every Night. 5 mL 1 3 Active Active Problems Problem Noted Date Diagnosed Date 34 weeks gestation of 12/24/2022 Gestational diabetes 11/26/2022 Assessment & Plan (12/24/2022 9:24 AM EDT): Patient presents for management of gestational diabetes. Her fastings are mostly elevated and then 90s to low 100s. Her postprandials are mostly within normal limits however some occasional postprandials are elevated likely secondary to dietary choices. We discussed proper foods for diabetes including avoiding fried foods and those that are high in carbs. We discussed increased intake of proteins. We discussed that given her elevated fastings a long-acting insulin is warranted. Levemir 20 units at night was prescribed today. We discussed a high-protein snack before bed. Patient to call in blood sugars 4 to 5 days after start of insulin. Additionally instructed that if patient having persistent hypoglycemia to call before then. Assessment & Plan (11/26/2022 9:45 AM EDT): Patient did not bring a log of her blood sugar readings. She reports that the last 2 days her fastings have been 85mg/dl and 91mg/dl. She had cheerios for breakfast and 1-hr after her blood sugar was 117mg/dl. After pasta yesterday she was 87mg/dl. We reviewed goals for blood glucose in , including fasting blood sugars < 90-95mg/dl and 2-hr post-prandial values < 110-120mg/dl. We discussed the importance of protein in her diet and of eating scheduled meals and eating high protein snacks between meals and at bedtime. - Recommend patient send us blood glucose logs weekly via [employer] for review - Follow-up for growth scheduled in 4 wks Family history of congenital heart disease 02/18 Depression with anxiety Morbid obesity Fatigue Dyspepsia Dyspnea on exertion Heartburn HLD (hyperlipidemia) Family History 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 Relation Name Comments defects Brother Diabetes Maternal Grandfather Hypertension Maternal Grandfather Diabetes Sister Relation Name Status Comments Brother at 6 w ks old Father Alive Maternal Grandfather Mother Alive Sister Social History Tobacco Use Types Packs/Day Years Used Date Smoking Tobacco: Never Smokeless Tobacco: Never Alcohol Use Standard Drinks/Week Comments No 0 (1 standard drink = 0.6 oz pur e alcohol) Abuse Screen Answer Date Recorded Unsafe at Home or Work/School Not on file Feels Threatened by Someone? Not on file 12/2022 Does Anyone Keep You from Co ntacting Others or Doint Things Outside the Home? Not on file 01/19/2023 Physical Sign of Abuse Present Not on file 1 Housing Stability Answer Date Recorded Current Living Arrangements Not on file 12/2022 Potentially Unsafe Housing Conditions Not on david e 01/19/2023 Family and Community Support Answer [place] e Recorded Help with Day-to-Day Activities Not on file 01/19/2023 Lonely or Isolated Not on file 01/19/2023 Employment Answer Date Recorded Do you want help finding or keeping work or a ericka b? Not on file 01/19/2023 Disabilities Answer Date Recorded Concentrating, Remembering, or Making Decisions Difficulty Not on file 01/19/2023 Doing Errands Independently Difficulty Not on fi le 01/19/2023 Education Answer Date Recorded Help with school or training? Not on file Preferred Language Not on file 01/19/2023 Comments No Sex and Gender Information Value Date Recorded Sex Assigned at Not on file Legal Sex Female 11:36 AM EDT Gender Identity Not on file Sexual Orientation Not on file Last Filed Vital Signs Vital Sign Reading Time Taken Comments Blood Pressure 130/83 12/24/2022 8:24 AM EDT Pulse 112 10/04/2020 1:07 PM EDT Temperature 37 C (98.6 F) 09/19/2020 3:05 PM EDT Respiratory Rate 18 09/19/2020 3:05 PM EDT Oxygen Saturation 98% 10/04/2020 1:07 PM EDT Inhaled Oxygen Concentration - - Weight 103 kg (226 lb) 12/24/2022 8:24 AM EDT Height 154.9 cm (5' 1 ) 10/04/2020 1:07 PM EDT Body Mass Index 42.7 10/04/2020 1:07 PM EDT Plan of Treatment Health Maintenance Due Date Last Done Comments Annual Gynecologic Pelvic an d Breast Exam 1995 TDAP/TD VACCINES (1 - Tdap) 2014 ANNUAL PHYSICAL 02/19/2016 LIPID PANEL 07/10/2021 07/10/2020 INFLUENZA VACCINE 11/11/2024 02/04/2021, 12/28/2019 HEPATITIS C SCREENING Completed 09/22/2016 Pneumococcal Vaccine 0-49 Aged Out No longer eligible based on patient's age to complete this topic Procedures Procedure Name Priority Date/Time Associated Diagnosis Comments LIPID PANEL Routine 07/10/2020 10:36 AM EDT Obesity, Class III, BMI 40-49.9 (morbid obesity) Dyspnea on exertion Hyperlipidemia, unspecified hyperlipidemia type Morbid obesity Family history of congenital heart disease Dyspepsia Heartburn Depression with anxiety Shortness of breath Fatigue, unspecified type HEPATITIS PANEL, ACUTE STAT 09/22/2016 7:13 PM EDT from Last 3 Months or Most Recently Relevant to Health Maintenance Results * (ABNORMAL) Lipid Panel (07/10/2020 10:36 AM EDT) Total Cholesterol 209(H) 0 - 200 mg/dL [facility] Comment: Cholesterol Reference Ranges (U.S. Department of Health and Human Services ATP III Classifications) Desirable <200 mg/dL Borderline High 200-239 mg/dL High Risk >240 mg/dL Triglyceride Reference Ranges (U.S. Department of Health and Human Services ATP III Classifications) Normal <150 mg/dL Borderline High 150-199 mg/dL High 200-499 mg/dL Very High >500 mg/dL HDL Reference Ranges (U.S. Department of Health and Human Services ATP III Classifcations) Low <40 mg/dl (major risk factor for CHD) High >60 mg/dl ('negative' risk factor for CHD) LDL Reference Ranges (U.S. Department of Health and Human Services ATP III Classifcations) Optimal <100 mg/dL Near Optimal 100-129 mg/dL Borderline High 130-159 mg/dL High 160-189 mg/dL Very High >189 mg/dL Triglycerides 108 0 - 150 mg/dL [facility] HDL Cholesterol 62(H) 40 - 60 mg/dL [facility] VLDL Cholesterol Miguel Angel 19 5 - 40 mg/dL [facility] LDL Chol Calc (NIH) 128(H) 0 - 100 mg/dL [facility] Blood 07/10/2020 10:3 6 AM EDT 07/10/2020 Narrative [facility] - 07/11/2020 12:09 PM EDT Performed at: [address] [place] [address] [id number] Merchandising Consultant: Norbert Gusman MD, Phone: [phone] Patient Fasting: N Tracie France PA-C LAB BLOOD ORDERABLES Final Result [facility] [address] [place] [address], [facility] [address] [place] [address], [place] [phone] * Hepatitis Panel, Acute (09/22/2016 7:13 PM EDT) Hepatitis B Surface Ag Non-Reacti ve Non-Reacti ve 09/23/2016 3:52 AM EDT [facility] Hep A IgM Non-Reacti ve Non-Reacti ve 09/23/2016 3:52 AM EDT [facility] Hep B C IgM Non-Reacti ve Non-Reacti ve 09/23/2016 3:52 AM EDT [facility] Hepatitis C Ab Non-Reacti ve Non-Reacti ve 09/23/2016 3:52 AM EDT [facility] Blood Venipuncture / Unknown 09/22/2016 7:13 PM EDT 09/22/2016 7:22 PM EDT Harpreet Bueno DO LAB BLOOD ORDERABLES Final Resul t [facility]
[address] [place] [address], [place] [phone] from Last 3 Months or Most Recently Relevant to Health Maintenance [place] [address] [place] [address] Care Teams Toe Laster Relationship Specialty Start Date End Date Heather Solo PA PCP - General Physician Tool Room Lathe Operator 11/13/22
[2025-02-18 19:57] VITALS: BP 145/78; PULSE 61; RESP 18; TEMP 37.1; O2SAT 98; BMI 28.3
--- NOTE | 2025-02-18 19:59 | XR_ITS ---
PROCEDURE INFORMATION: Exam: XR Right Foot Exam date and time: 02/18/2025 8:15 PM Age: 29 years old Clinical indication: Injury or trauma; Other: Glass fb between 4th/5th; Puncture; Foot; Right; With foreign body TECHNIQUE: Imaging protocol: Radiologic exam of the right foot. Views: 3 or more views. COMPARISON: US - CA VENOUS DOPPLER LE RT 04/15/2023 4:04 PM FINDINGS: Bones/joints: Anatomic alignment is maintained. No acute fracture. Soft tissues: There is a wedge-shaped 3.5 x 0.5 cm (AP by transverse) mildly hyperdense foreign body along the lateral aspect base of the 4th toe only appreciated on the frontal and oblique images. IMPRESSION: Imaging findings are concerning for foreign body extending to the base of the 4th toe.
[2025-02-18 20:01] VITALS: BP 135/78; PULSE 71; RESP 18; TEMP 36.6; O2SAT 98
--- NOTE | 2025-02-18 20:01 | ED_ITS ---
Discharge Plan Disposition Chief Complaint: Skin/Abscess/Foreign Body Prescriptions Prescriptions: No Action Mirena 21 mcg/24 hours (8 yrs) 52 mg intrauterine device intrauterine naltrexone 50 mg tablet 50 mg PO DAILY Qty: 30 2RF bupropion HCl 150 mg tablet extended release 24 hr 150 mg PO DAILY Qty: 30 2RF Referrals Follow up/Referrals: Sosa John APRN [Primary Care Provider, Medical] - See instructions Activity Restrictions/Add. Instructions Additional Instructions/Restrictions: You had a glass foreign body that was removed and the very small puncture wound was irrigated Neosporin was placed on top of this please keep Neosporin on this over the next week covered by a dressing such as a Band-Aid. Return with any spreading redness or pus coming from the wound or other concerns. Clinical Impressions Clinical Impression: Glass foreign body in foot Instructions Patient Instructions: DI for Skin Abscess Print Language Print Language: Indonesian Discharge ED Provider: Jose M Eller General Adult HPI General Chief complaint: Skin/Abscess/Foreign Body Stated complaint: AO 11-8 left foot glass in foot Time Seen by Provider: 02/18/25 19:56 History of Present Illness HPI narrative: Patient is a 29-year-old female presenting today with a glass foreign body between her 5th and 4th digit. She was taking out trash and dropped the trash bag onto her foot that had glass in it. It is lodged and she has not tried to pull it out. Related Data Home Medications ?Medication ?Instructions ?Recorded ?Confirmed levonorgestrel (Mirena) intrauterine 04/28/23 Previous Rx's ?Medication ?Instructions ?Recorded bupropion HCl 150 mg 24 hr tablet, 150 mg PO DAILY #30 tabs 06/24/23 extended release naltrexone 50 mg tablet 50 mg PO DAILY #30 tabs 06/11 07/04 Allergies Allergy/AdvReac Type Severity Reaction Status Date / Time No Known Allergies Allergy Verified 06/24/23 14:58 [facility] Disclaimer: The information contained in this section may have been updated after the patient was seen, as this information can be updated by other users. 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 (Updated 02/18/25 @ 20:43 by Jose M Eller MD) Gestational diabetes Gestational diabetes mellitus (GDM) Acne Anxiety Abnormal weight Morbid obesity with BMI of 40.0-44.9, adult Depression Surgical History History of appendectomy History of cholecystectomy Family History Other No significant family history Social History Smoking Status: Never smoker alcohol intake: never substance use type: denies use current occupational status: employed Travel in the last 8 weeks?: None housing: apartment Have you lived/traveled outside US in past 30 days?: No Contact w/someone who lives/traveled outside US past 30 days?: No Exposure to someone with infectious disease in past 14 days?: No Do you have a fever (greater than 100.4 F or 38 C)?: No Have you tested positive for COVID-19?: No Exposed to someone with COVID-19 in past 14 days?: No Do you have a sore throat?: No Do you have a cough?: No Do you have any weakness?: No Do you have any diarrhea?: No Are you experiencing any unusual bleeding?: No Do you have any muscle aches/pain?: No Do you have any abdominal pain?: No Are you experiencing loss of taste or smell?: No Other 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 Have you received the Flu Vaccine for this season: No Have you received the Pneumonia Vaccine: No ROS Obtained: Yes All systems reviewed & no additional complaints except as documented Physical Exam General General appearance: alert Respiratory Respiratory exam: Present normal lung sounds bilaterally Cardiovascular Cardiovascular exam: Present regular rate Extremities Exam Extremities exam: Present other (There is a 2 to 3 cm glass foreign body that is currently protruding between the webspace between the 4th and 5th digits neurovascular intact otherwise) Neurological Exam Neurological exam: Present alert and oriented X3 Medical Decision Making Medical Records Screening: Per USPSTF and CDC recommendations, given the prevalence of disease in our region, it is our hospital?s policy to screen for HIV and viral Hepatitis for all patients aged 18 and over and those with ongoing risk factors. Robert Inquiry Pt receiving controlled substance: No Vital Signs: 02/18/25 19:57 02/18/25 20:01 Temperature 98.8 F 97.8 F Temperature Source Oral Oral Pulse Rate 71 Pulse Rate [Left] 61 Respiratory Rate 18 18 Blood Pressure 135/78 Blood Pressure [Right Arm] 145/78 H Blood Pressure Mean [Right Arm] 100 02 Sat by Pulse Oximetry 98 98 Oxygen Delivery Method Room Air Room Air Orders (Tests/Meds): ED MEDICATIONS Discontinued Medications Generic Name Dose Route Start Last Admin Trade Name Chago PRN Reason Stop Dose Admin Tetanus/Reduced Diphtheria/Acell Pertussis 0.5 ml 02/18/25 19:59 02/18/25 20:09 Tet/Diphth/Pert-Adult 0.5ml Syringe IM 02/18/25 20:00 0.5 ml .ONCE ONE Administration ORDERS Category Date Time Status Foot XR right minimum 3 views [XR foot RT min 3V] Stat Exams 02/18/25 19:59 Taken Medical Decision Narrative: Patient with above history and physical we will update her tetanus obtain a plain film to see how much of the glass is extending into her soft tissues and then I will do a digital block and remove the foreign body and depending on how this goes we will make wound management decisions and post foreign body removal x-ray decisions as well. X-ray performed I personally interpreted which shows a glass foreign body projecting over the fourth digit about 3-1/2 cm in length. Digital block was subsequently performed and the piece of glass was manually removed it came out in 1 piece and was consistent from a Linq standpoint. I did offer a postprocedural x-ray however we are very busy and it would take a while and I told her I felt like I got most of it and she was okay with not getting an x- ray. Wound was irrigated extensively and topical antibiotic ointment was placed on top of this and wound management discussed patient was discharged in improved condition. Procedures Foreign Body Removal Time Out Performed: Yes Site: right and lower extremity Description of foreign body: other (Glass) Sedation/Analgesia: other (Digital block used with 1% lidocaine with epinephrine 5 cc used) Technique: manual removal Confirmed by:: direct visualization Complications: none Post-procedure exam: normal BP Critical Care Critical Care Time Critical Care Time: No
[2025-02-18] MEDS: TET/DIPHTH/PERT-ADULT 0.5ML SYRINGE 0.5 ML IM (20:09)
[2025-02-18 21:00] VITALS: BP 128/78; PULSE 71; RESP 17; TEMP 37.1; O2SAT 97
== END 2025-02-18 21:08 | disposition home or self-care (01) ==
PROVIDERS: Emergency Provider Student in an Organized Health Care Education/Training Program; PCP Nurse Practitioner Family
DX: S90.852A Superficial foreign body, left foot, initial encounter (principal); W25.XXXA Contact with sharp glass, initial encounter
CPT/HCPCS: 73630; 90471; 90715; 99283; 99284; J2004